=== PATIENT | female | born 1965 | race Caucasian/White ===

== ENCOUNTER 2019-12-23 13:56 | Outpatient (REF) | payer MEDICARE, MEDICAID, SELFPAY ==
[2019-12-23 15:10] LABS: MANUAL DIFF FLAG NO
[2019-12-23 15:15] LABS: Basophils Percent Auto 0.5 % (0-2); Eosinophils Absolute Auto 0.2 X10*3/uL (0.0-0.4); Eosinophils Percent Auto 2.4 % (0-4); Hematocrit 40.7 % (37-47); Hemoglobin 12.9 g/dl (12.0-16.0); Imm Gran Abs Auto 0.03 X10*3/uL (0.00-0.03); Imm Gran Pct Auto 0.3 % (0.0-0.4); Lymphocytes Absolute Auto 2.6 X10*3/uL (1.2-4.9); Lymphocytes Percent Auto 29.8 % (20-40); Mean Corpuscular HGB Conc 31.7 g/dl (31.0-35.0); Mean Corpuscular Volume 91.5 fL (80-98); Mean Platelet Volume 12.2 fL (9.4-12.3); Monocytes Absolute Auto 0.5 X10*3/uL (0.1-1.2); Monocytes Percent Auto 5.7 % (2-11); Neutrophils Absolute Auto 5.4 X10*3/uL (2.0-8.3); Neutrophils Percent Auto 61.3 % (45-73); Platelet Count 258 X10*3/uL (160-400); Red Blood Count 4.45 X10*6/uL (4.20-5.50); Red Cell Distribution Width 14.6 % (11.0-16.0); White Blood Count 8.8 X10*3/uL (4.8-10.8)
[2019-12-23 15:59] LABS: Alanine Aminotransferase 21 U/L (0-31); Albumin Level 4.6 g/dL (3.5-5.0); Alkaline Phosphatase 130 U/L (39-117); Anion Gap 13 (12-20); Aspartate Amino Transferase 14 U/L (5-31); Bilirubin Total 0.6 mg/dL (0.0-1.0); Blood Urea Nitrogen 27 mg/dL (9-16); Carbon Dioxide 25 mmol/L (22-29); Chloride 102 mmol/L (96-108); Cholesterol 165 mg/dL; Estimated Glomerular Filt Rate 45; Glucose Fasting 128 mg/dL (60-99); HDL Cholesterol 33 mg/dL; LDL Cholesterol Calculated 103 mg/dl; Potassium 4.8 mmol/l (3.3-5.1); Sodium 135 mmol/L (135-145); Total Protein 7.5 g/dL (6.5-8.0); Triglycerides 149 mg/dL
[2019-12-23 16:07] LABS: Estimated Average Glucose 146 mg/dL; Hemoglobin A1c % 6.7 %
[2019-12-23 16:18] LABS: TSH reflex Free T4 2.17 mIU/mL (0.32-4.0)
== END 2019-12-23 13:57 | disposition home or self-care (01) ==
LOC: HO.LAB 13:56
PROVIDERS: PCP Internal Medicine; Visit Provider Internal Medicine
DX: E11.9 Type 2 diabetes mellitus without complications (principal); E78.5 Hyperlipidemia, unspecified; I10 Essential (primary) hypertension; J44.9 Chronic obstructive pulmonary disease, unspecified; G43.909 Migraine, unspecified, not intractable, without status migrainosus; J30.9 Allergic rhinitis, unspecified; E66.9 Obesity, unspecified
CPT/HCPCS: 36415; 80053; 80061; 83036; 84443; 85025

== ENCOUNTER 2019-12-31 14:15 | Outpatient (REF) | payer MEDICARE, MEDICAID, SELFPAY ==
[2019-12-31 14:32] LABS: Glucose Urine UA NEG (NEG); Leukocyte Esterase Urine 3+ (NEG); Nitrite Urine NEG (NEG); PH 6.5 (5.0-8.0); Specific Gravity - Urine 1.015 (1.005-1.025); Urine Blood NEG (NEG); Urine Ketones NEG (NEG); Urine Protein NEG (NEG-TRACE)
[2019-12-31 14:33] LABS: Appearance Urine HAZY; Color Urine STRAW
[2019-12-31 14:48] LABS: Bacteria Urine 2+ /LPF; RBC Urine 0-2 /HPF (0); Squamous Epithelial Cell Urine 2+ /LPF; WBC Urine 50-75 /HPF (0-4)
[2019-12-31 15:09] LABS: Creatinine Urine 45.56 mg/dL; Microalbum/Creatinine Ratio Ur 10.9 ug/mg cr
== END 2019-12-31 14:16 | disposition home or self-care (01) ==
LOC: HO.LNP 14:15
PROVIDERS: Visit Provider Internal Medicine
DX: E11.9 Type 2 diabetes mellitus without complications (principal); I10 Essential (primary) hypertension; E78.5 Hyperlipidemia, unspecified; J44.9 Chronic obstructive pulmonary disease, unspecified; G43.909 Migraine, unspecified, not intractable, without status migrainosus; J30.9 Allergic rhinitis, unspecified; E66.9 Obesity, unspecified
CPT/HCPCS: 81001; 82043

== ENCOUNTER 2020-01-08 12:20 | Emergency (ER) | payer MEDICARE, MEDICAID, SELFPAY ==
[2020-01-08 12:50] VITALS: BP 145/72; PULSE 77; RESP 16; TEMP 37.3; O2SAT 98; BMI 30.4
--- NOTE | 2020-01-08 13:21 | XR_ITS ---
EXAMINATION: XR CHEST CLINICAL INFORMATION: Cough COMPARISON: 03/23/2018 TECHNIQUE: 2 views of the chest were obtained. FINDINGS: No significant abnormality is noted involving the heart, lungs, mediastinum, bony thorax or soft tissues. Again noted is a mild biconvex thoracolumbar scoliosis. XR/XR chest 2V IMPRESSION: No acute intrathoracic disease.
--- NOTE | 2020-01-08 13:38 | ED_ITS ---
HPI - URI/Sore Throat General Chief Complaint: Upper Respiratory Symptoms Stated Complaint: bronchitis Time Seen by Provider: 01/08/20 13:16 Source: patient Mode of arrival: ambulatory Limitations: no limitations History of Present Illness HPI Narrative: 54-year-old female with past medical history of chronic bronchitis here with increasing cough for the last 3 days unrelieved with an inhaler at home. No fevers, chills or body aches. No shortness of breath or chest pain. MD elicited complaint: cough Onset (ago): day(s) Consistency: constant Severity: moderate Able to tolerate fluids by mouth: Yes Exacerbating factors: nothing Relieving factors: nothing Associated symptoms: denies other symptoms Treatments prior to arrival: none Related Data Previous Rx's Medication Instructions Recorded azithromycin 250 mg PO DAILY 5 Days #5 tab 01/08/20 benzonatate [Tessalon Perles] 100 mg PO TID PRN #20 cap 01/08/20 prednisone 40 mg PO DAILY #10 tab 01/08/20 Allergies Allergy/AdvReac Type Severity Reaction Status Date / Time codeine [CODEINE] Allergy Intermediate VOMITING Verified 01/08/20 12:49 Codeine Phosphate Allergy Unknown vomiting Verified 01/08/20 12:49 Review of Systems Constitutional: Constitutional: Reports no additional constitutional complaints, Denies chills, Denies fatigue, Denies fever(s), Denies headache(s) and Denies weakness Eyes: Eyes: Reports no additional eye complaints and Denies change in vision ENT: Reports system reviewed and no additional complaints, except as documented, Denies otalgia, Denies headache(s) and Denies sore throat Cardiovascular: Cardiovascular: Reports no additional cardiovascular complaints, Denies chest pain, Denies leg edema and Denies dyspnea Respiratory: Respiratory: Reports no additional respiratory complaints, Repo rts cough and Denies dyspnea Gastrointestinal: Gastrointestinal: Reports no additional gastrointestinal complaints, Denies abdominal pain, Denies diarrhea, Denies nausea and Denies vomiting Musculoskeletal: Musculoskeletal: Reports no additional musculoskeletal complaints, Denies back pain, Denies arthralgias, Denies joint swelling, Denies numbness and Denies tingling Integumentary/Breasts: Skin/Breast: Reports system reviewed and no additional complaints, except as docu and Denies rash Neurologic: Reports system reviewed and no additional complaints, except as documented, Denies Abnormal speech present, Denies headache(s), Denies numbness, Denies tingling and Denies weakness Endocrine: Endocrine: Denies fatigue [facility] Past Medical History Attestation statement: The following information was validated with the patient. Source: obtained from family and nursing notes reviewed Medical History Chronic bronchitis No known health problems Poor historian Social History Social History Advance Directives: No Advance Directives Information Provided: No Physical Exam Vital Signs: Vital Signs: Vital Signs Temp Pulse Resp BP Pulse Ox 01/08/20 12:50 99.2 F 77 16 145/72 H 98 Body Mass Index 30.4 Const: General: cooperative, healthy appearing, comfortable and no acute distress Orientation/consciousness: patient oriented x3 Limitations: no limitations HENMT: Head: Yes normal to inspection Ears: hearing grossly normal bilaterally General nose exam: Normal external nose present Face and sinus: Yes normal facial exam Mouth: Normal oral and palatal mucosa present Throat: Yes posterior oropharynx normal Eyes: General: appearance normal, both eyes and all related structures Pupils: Equal, round and reactive pupils present Neck: Neck: Yes normal visual inspection Chest: Chest palpation & inspection: normal inspection of the chest Resp: Effort & Inspection: normal respiratory effort Auscultation: clear to auscultation bilaterally Cardio: Rate: regular rate Rhythm: regular rhythm Peripheral pulses: Peripheral pulses 2+ throughout GI: Inspection: Yes normal to inspection Palpation (GI): Soft to palpation and nontender Auscultation: normal bowel sounds Back/Spine/Pelvis: Thoracic/Lumbar Spine: thoracic and lumbar spine normal to inspection Skin: General skin exam: no rashes or lesions noted Neuro: General: patient oriented x3, no focal motor deficits and normal sensation to monofilament Cranial nerves: Yes Equal, round and reactive pupils present Cognition (Neuro): normal cognition Speech: No Abnormal speech present Gait exam (Neuro): Normal gait present Motor exam (neuro): 5/5 motor strength present throughout Extrem: General: Yes normal to inspection Course Course Course Narrative: Nonproductive but congested cough for the last 3 days unrelieved with inhaler at home. No other symptoms. Will check chest x-ray, FLORENTINO swab. 1445-CXR unremarkable. H/o chronic bronchitis. Will give z pack, prednisone course. Reviewed worrisome signs and symptoms when to return to the emergency department. Comfortable discharge home. MDM - URI/Sore Throat Imaging Data Chest x-ray: Attestation: I personally reviewed and interpreted this imaging study as follows: Radiologist's impression: EXAMINATION: XR CHEST CLINICAL INFORMATION: Cough COMPARISON: 03/23/2018 TECHNIQUE: 2 views of the chest were obtained. FINDINGS: No significant abnormality is noted involving the heart, lungs, mediastinum, bony thorax or soft tissues. Again noted is a mild biconvex thoracolumbar scoliosis. XR/XR chest 2V IMPRESSION: No acute intrathoracic disease. Discharge Plan Discharge Clinical Impression: Bronchitis Patient Disposition: Home, Self-Care Instructions: Acute Bronchitis (ED) Additional Instructions: We have tested you today for COVID 19. Test results take 1-2 days and we will call you with the results negative or positive. Take tylenol or motrin if able as needed for pain or fever. Stay well hydrated with fluids like water, gatorade and/or powerade. Wash hands at home. If living with others try to self isolate if possible. If unable wear a mask around others in your home and wash hands frequently. If COVID test is positive you will need to self isolate for a total of 14 days from when your symptoms started. You may return to work sooner if testing is negative and all symptoms resolved >72 hours. You should return to the emergency department for severe shortness of breath, chest pain or fever which does not respond to both tylenol and motrin at home. Prescriptions: New azithromycin 250 mg tablet 250 mg PO DAILY 5 Days Qty: 5 RF: 0 prednisone 20 mg tablet 40 mg PO DAILY Qty: 10 RF: 0 benzonatate [Tessalon Perles] 100 mg capsule 100 mg PO TID PRN (Reason: cough) Qty: 20 RF: 0 Referrals: Rogerio Waddell MD [Primary Care Provider] - 2 days
== END 2020-01-08 14:45 | disposition home or self-care (01) ==
PROVIDERS: Nurse Practitioner Family; Emergency Provider Emergency Medicine; PCP Internal Medicine
DX: J40 Bronchitis, not specified as acute or chronic (principal); Z79.899 Other long term (current) drug therapy; Z20.828 Contact with and (suspected) exposure to other viral communicable diseases
CPT/HCPCS: 71046; 87635; 99283

== ENCOUNTER 2020-01-27 13:21 | Outpatient (REF) | payer MEDICARE, MEDICAID, SELFPAY ==
--- NOTE | 2020-01-27 13:27 | US_ITS ---
EXAMINATION: US PELVIS CLINICAL INFORMATION: Right ovarian cyst COMPARISON: 09/02/2019 TECHNIQUE: Ultrasound of the pelvis is performed using transabdominal transducer. FINDINGS: Uterus: The uterus is anteverted and measures 8.7 x 3.4 x 2.6 cm. Diminutive endometrium is not measurable on this transabdominal exam. The uterus is smooth in contour and has normal myometrial echogenicity. No visible fibroid. Adnexa: The ovaries are not visualized. No adnexal mass. No free fluid. US/US pelvic complete IMPRESSION: Grossly unremarkable appearance of the uterus on this transabdominal exam. The ovaries are not visualized. There is no adnexal mass identified.
== END 2020-01-27 13:22 | disposition home or self-care (01) ==
LOC: HO.US 13:21
PROVIDERS: PCP Internal Medicine; Visit Provider Obstetrics & Gynecology
DX: N83.201 Unspecified ovarian cyst, right side (principal)
CPT/HCPCS: 76856

== ENCOUNTER 2020-02-07 10:58 | Outpatient (REF) | payer MEDICARE, MEDICAID, SELFPAY ==
--- NOTE | 2020-02-07 11:03 | MM_ITS ---
EXAMINATION: MM SCREENING DIGITAL BREAST TOMOSYNTHESIS, BILATERAL CLINICAL INFORMATION: Screening. Asymptomatic. The lifetime risk of breast cancer based on the Tyrer-Cuzick Model is 9%. COMPARISON: Mammography: 06/10/2018, 06/04/2017, 05/06/2016 TECHNIQUE: Digital breast tomosynthesis is performed in both the craniocaudal and mediolateral oblique views along with computer-aided detection (CAD). Synthesized 2D images are generated from the tomosynthesis. Additional views are provided: Exaggerated right CC, left CC, left MLO. FINDINGS: There are scattered areas of fibroglandular density (ACR BI-RADS breast composition Category b). There are no significant masses, abnormal calcifications, or other abnormalities. Parenchymal pattern is similar to prior studies. There is no developing density. The axilla and skin contours are unremarkable. MM/MM tomosynthesis screening BI IMPRESSION: No mammographic evidence of malignancy. ASSESSMENT: BI-RADS 1: Negative RECOMMENDATION: Routine annual mammography screening. This patient's information was entered into a reminder system with a target due date for their next mammogram.
== END 2020-02-07 10:59 | disposition home or self-care (01) ==
LOC: HO.MAMMO 10:58
PROVIDERS: PCP Internal Medicine; Visit Provider Internal Medicine
DX: Z12.31 Encounter for screening mammogram for malignant neoplasm of breast (principal)
CPT/HCPCS: 77063; 77067

== ENCOUNTER 2020-05-08 13:45 | Outpatient (REF) | payer MEDICARE, MEDICAID, SELFPAY ==
[2020-05-11 06:17] LABS: HPV mRNA E6/E7 rflx Not Detected (Not Detected)
== END 2020-05-08 13:46 | disposition home or self-care (01) ==
LOC: HO.LAB 13:45
PROVIDERS: PCP Internal Medicine; Visit Provider Obstetrics & Gynecology
DX: Z01.419 Encounter for gynecological examination (general) (routine) without abnormal findings (principal); I10 Essential (primary) hypertension; E11.9 Type 2 diabetes mellitus without complications; J44.9 Chronic obstructive pulmonary disease, unspecified; E66.9 Obesity, unspecified; E78.00 Pure hypercholesterolemia, unspecified; G47.33 Obstructive sleep apnea (adult) (pediatric); F41.8 Other specified anxiety disorders; F10.10 Alcohol abuse, uncomplicated; Z11.51 Encounter for screening for human papillomavirus (HPV); Z88.5 Allergy status to narcotic agent
CPT/HCPCS: 36415; 87624; 88142

== ENCOUNTER → 2020-05-26 10:26 | Outpatient (BNVA) | payer MEDICARE, MEDICAID, SELFPAY | PROVIDERS: PCP Internal Medicine; Visit Provider Nurse Practitioner Gerontology | DX: E11.65 Type 2 diabetes mellitus with hyperglycemia (principal); E66.9 Obesity, unspecified; Z68.29 Body mass index [BMI] 29.0-29.9, adult; E78.5 Hyperlipidemia, unspecified; Z79.84 Long term (current) use of oral hypoglycemic drugs | CPT/HCPCS: 82947; 99212 ==

== ENCOUNTER → 2020-09-19 09:55 | Outpatient (BNVA) | payer MEDICARE, MEDICAID, SELFPAY | PROVIDERS: PCP Internal Medicine; Visit Provider Nurse Practitioner Gerontology | DX: E11.65 Type 2 diabetes mellitus with hyperglycemia (principal); E78.5 Hyperlipidemia, unspecified; E66.9 Obesity, unspecified | CPT/HCPCS: 82947; Q3014 ==

== ENCOUNTER 2020-11-21 15:11 | Outpatient (REF) | payer MEDICARE, MEDICAID, SELFPAY ==
[2020-11-21 15:31] LABS: MANUAL DIFF FLAG NO
[2020-11-21 15:35] LABS: Basophils Percent Auto 0.3 % (0-2); Eosinophils Absolute Auto 0.2 X10*3/uL (0.0-0.4); Eosinophils Percent Auto 1.7 % (0-4); Hematocrit 39.6 % (37-47); Hemoglobin 12.5 g/dl (12.0-16.0); Imm Gran Abs Auto 0.09 X10*3/uL (0.00-0.03); Imm Gran Pct Auto 0.8 % (0.0-0.4); Lymphocytes Absolute Auto 3.1 X10*3/uL (1.2-4.9); Mean Corpuscular HGB Conc 31.6 g/dl (31.0-35.0); Mean Corpuscular Hemoglobin 28.6 pg (27.0-33.0); Mean Corpuscular Volume 90.6 fL (80-98); Mean Platelet Volume 10.7 fL (9.4-12.3); Monocytes Absolute Auto 0.8 X10*3/uL (0.1-1.2); Monocytes Percent Auto 6.6 % (2-11); Neutrophils Absolute Auto 7.3 X10*3/uL (2.0-8.3); Neutrophils Percent Auto 63.6 % (45-73); Platelet Count 280 X10*3/uL (160-400); Red Blood Count 4.37 X10*6/uL (4.20-5.50); Red Cell Distribution Width 15.2 % (11.0-16.0); White Blood Count 11.5 X10*3/uL (4.8-10.8)
[2020-11-21 15:58] LABS: Alanine Aminotransferase 27 U/L (0-31); Albumin Level 4.2 g/dL (3.5-5.0); Alkaline Phosphatase 105 U/L (39-117); Anion Gap 11 (12-20); Aspartate Amino Transferase 16 U/L (5-31); Bilirubin Total 0.6 mg/dL (0.0-1.0); Blood Urea Nitrogen 16 mg/dL (9-16); Calcium 8.9 mg/dL (8.4-10.2); Carbon Dioxide 26 mmol/L (22-29); Chloride 104 mmol/L (96-108); Cholesterol 130 mg/dL; Estimated Glomerular Filt Rate 55; Glucose Fasting 158 mg/dL (60-99); HDL Cholesterol 37 mg/dL; LDL Cholesterol Calculated 68 mg/dl; Sodium 136 mmol/L (135-145); Total Protein 6.8 g/dL (6.5-8.0); Triglycerides 127 mg/dL
[2020-11-21 16:11] LABS: TSH reflex Free T4 2.23 uIU/mL (0.32-4.0)
== END 2020-11-21 15:12 | disposition home or self-care (01) ==
LOC: HO.LAB 15:11
PROVIDERS: PCP Internal Medicine; Visit Provider Internal Medicine
DX: E11.9 Type 2 diabetes mellitus without complications (principal); E78.00 Pure hypercholesterolemia, unspecified; J30.9 Allergic rhinitis, unspecified; I10 Essential (primary) hypertension; J44.9 Chronic obstructive pulmonary disease, unspecified; E66.9 Obesity, unspecified
CPT/HCPCS: 36415; 80053; 80061; 84443; 85025

== ENCOUNTER → 2020-12-26 12:16 | Outpatient (BNVA) | payer MEDICARE, MEDICAID, SELFPAY | PROVIDERS: PCP Internal Medicine; Visit Provider Nurse Practitioner Gerontology | DX: E11.9 Type 2 diabetes mellitus without complications (principal); E78.5 Hyperlipidemia, unspecified; E66.9 Obesity, unspecified | CPT/HCPCS: 82947; 83036; 99212 ==

== ENCOUNTER → 2021-01-02 12:47 | Outpatient (BNVA) | payer MEDICARE, MEDICAID, SELFPAY | PROVIDERS: PCP Internal Medicine | DX: N39.46 Mixed incontinence (principal) | CPT/HCPCS: 51798; 99212 ==

== ENCOUNTER → 2021-01-19 11:39 | Outpatient (BNVA) | payer MEDICARE, MEDICAID, SELFPAY | PROVIDERS: Visit Provider Orthopaedic Surgery | DX: M75.102 Unspecified rotator cuff tear or rupture of left shoulder, not specified as traumatic (principal); E11.9 Type 2 diabetes mellitus without complications | CPT/HCPCS: 20610; 99212; J1100 ==

== ENCOUNTER → 2021-05-09 13:45 | Outpatient (BNVA) | payer MEDICARE, MEDICAID, SELFPAY | PROVIDERS: Visit Provider Obstetrics & Gynecology | DX: Z01.419 Encounter for gynecological examination (general) (routine) without abnormal findings (principal); N95.9 Unspecified menopausal and perimenopausal disorder; N64.4 Mastodynia; I10 Essential (primary) hypertension; E11.9 Type 2 diabetes mellitus without complications; E78.00 Pure hypercholesterolemia, unspecified; E78.5 Hyperlipidemia, unspecified; Z88.6 Allergy status to analgesic agent | CPT/HCPCS: 99212 ==

== ENCOUNTER 2021-06-19 13:24 | Outpatient (REF) | payer MEDICARE, MEDICAID, SELFPAY ==
--- NOTE | ~2021-06-19 | MM_ITS ---
EXAMINATION: MM DIAGNOSTIC DIGITAL BREAST TOMOSYNTHESIS, BILATERAL US DIAGNOSTIC ULTRASOUND BREAST, LEFT CLINICAL INFORMATION: Pain upper left breast for one week. No erythema, discharge, or palpable mass. Due for yearly. The lifetime risk of breast cancer based on the Tyrer-Cuzick Model is 9%. COMPARISON: Mammography: 02/07/2020, 06/10/2018, 06/04/2017 TECHNIQUE: Digital breast tomosynthesis is performed in both the craniocaudal and mediolateral oblique views along with computer-aided detection (CAD). Synthesized 2D images are generated from the tomosynthesis. Ultrasound left breast is targeted to the areas of clinical concern upper breast. Patient is able to point to the area of concern at time of imaging. Grayscale imaging and color Doppler are performed without and with harmonics. FINDINGS: There are scattered areas of fibroglandular density (ACR BI-RADS breast composition Category b). Parenchymal pattern is similar to prior studies. There is no developing density or interval mass or architectural abnormality. No skin thickening or coarsening of the Shan's ligaments. No abnormal calcifications. The axilla are unremarkable. Ultrasound demonstrates no cystic or solid mass or architectural abnormality. No focal duct ectasia. No skin thickening or edema tracking in soft tissue planes. Results are discussed with the patient at time of visit. MM/MM tomosynthesis diagnostic BI IMPRESSION: -No mammographic evidence of malignancy or inflammatory changes. -Unremarkable targeted left breast ultrasound.. ASSESSMENT: BI-RADS 1: Negative RECOMMENDATION: 1. Patient's breast/chest pain should be managed based on the clinical impression. 2. Otherwise, routine annual screening mammography. This patient's information was entered into a reminder system with a target due date for their next mammogram.
== END 2021-06-19 13:25 | disposition home or self-care (01) ==
LOC: HO.MAMMO 13:24
PROVIDERS: PCP Internal Medicine; Visit Provider Obstetrics & Gynecology
DX: N64.4 Mastodynia (principal)
CPT/HCPCS: 76642; 77062; 77066

== ENCOUNTER → 2021-06-25 11:55 | Outpatient (BNVA) | payer MEDICARE, MEDICAID, SELFPAY | PROVIDERS: PCP Internal Medicine; Visit Provider Nurse Practitioner Gerontology | DX: E11.9 Type 2 diabetes mellitus without complications (principal); E66.9 Obesity, unspecified; E78.5 Hyperlipidemia, unspecified | CPT/HCPCS: 82947; 83036; 99212 ==

== ENCOUNTER 2021-06-29 10:17 | Outpatient (REF) | payer MEDICARE, MEDICAID, SELFPAY ==
--- NOTE | ~2021-06-29 | XR_ITS ---
EXAMINATION: XR CHEST CLINICAL INFORMATION: Bronchitis COMPARISON: January 08, 2020 TECHNIQUE: 2 views of the chest were obtained. FINDINGS: No significant abnormality is noted involving the heart, lungs, mediastinum, bony thorax or soft tissues. XR/XR chest 2V IMPRESSION: No acute disease.
== END 2021-06-29 10:18 | disposition home or self-care (01) ==
LOC: HO.XRAY 10:17
PROVIDERS: PCP Internal Medicine; Visit Provider Internal Medicine
DX: J40 Bronchitis, not specified as acute or chronic (principal); R06.00 Dyspnea, unspecified
CPT/HCPCS: 71046

== ENCOUNTER → 2021-08-28 08:51 | Outpatient (BNVA) | payer MEDICARE, MEDICAID, SELFPAY | PROVIDERS: PCP Internal Medicine; Visit Provider Obstetrics & Gynecology | DX: R07.9 Chest pain, unspecified (principal) | CPT/HCPCS: 99212 ==

== ENCOUNTER 2021-09-21 09:57 | Outpatient (REF) | payer MEDICARE, MEDICAID, SELFPAY ==
[2021-09-21 10:10] LABS: MANUAL DIFF FLAG NO
[2021-09-21 11:18] LABS: Basophils Percent Auto 0.5 % (0-2); Eosinophils Absolute Auto 0.3 X10*3/uL (0.0-0.4); Eosinophils Percent Auto 3.4 % (0-4); Hematocrit 39.8 % (37.0-47.0); Hemoglobin 12.7 g/dl (12.0-16.0); Imm Gran Abs Auto 0.03 X10*3/uL (0.00-0.03); Imm Gran Pct Auto 0.4 % (0.0-0.4); Lymphocytes Absolute Auto 2.7 X10*3/uL (1.2-4.9); Mean Corpuscular HGB Conc 31.9 g/dl (31.0-35.0); Mean Corpuscular Hemoglobin 28.9 pg (27.0-33.0); Mean Corpuscular Volume 90.7 fL (80.0-98.0); Monocytes Absolute Auto 0.6 X10*3/uL (0.1-1.2); Monocytes Percent Auto 6.9 % (2-11); Neutrophils Absolute Auto 4.8 x10*3/uL (2.0-8.3); Neutrophils Percent Auto 56.8 % (45-73); Platelet Count 235 X10*3/uL (160-400); Red Blood Count 4.39 X10*6/uL (4.20-5.50); Red Cell Distribution Width 14.6 % (11.0-16.0); White Blood Count 8.4 X10*3/uL (4.8-10.8)
[2021-09-21 11:28] LABS: Estimated Average Glucose 140 mg/dL; Hemoglobin A1c % 6.5 %
[2021-09-21 11:54] LABS: Alanine Aminotransferase 24 U/L (0-31); Albumin Level 4.4 g/dL (3.5-5.0); Alkaline Phosphatase 112 U/L (39-117); Anion Gap 14 (12-20); Aspartate Amino Transferase 15 U/L (5-31); Bilirubin Total 0.3 mg/dL (0.0-1.0); Blood Urea Nitrogen 21 mg/dL (9-16); Carbon Dioxide 26 mmol/L (22-29); Chloride 103 mmol/L (96-108); Cholesterol 157 mg/dL; Estimated Glomerular Filt Rate 53; Glucose Fasting 150 mg/dL (60-99); HDL Cholesterol 44 mg/dL; LDL Cholesterol Calculated 71 mg/dl; Potassium 4.2 mmol/L (3.3-5.1); Sodium 139 mmol/L (135-145); Total Protein 7.3 g/dL (6.5-8.0); Triglycerides 211 mg/dL
[2021-09-21 12:06] LABS: TSH reflex Free T4 3.97 uIU/mL (0.32-4.0); Vitamin D 25-OH Total 44.7 ng/mL (>30)
== END 2021-09-21 09:58 | disposition home or self-care (01) ==
LOC: HO.LAB 09:57
PROVIDERS: PCP Internal Medicine; Visit Provider Internal Medicine
DX: E11.9 Type 2 diabetes mellitus without complications (principal); I10 Essential (primary) hypertension; E55.9 Vitamin D deficiency, unspecified; E78.00 Pure hypercholesterolemia, unspecified
CPT/HCPCS: 36415; 80053; 80061; 82306; 83036; 84443; 85025

== ENCOUNTER → 2022-01-17 13:27 | Outpatient (BNVA) | payer MEDICARE, MEDICAID, SELFPAY | PROVIDERS: PCP Internal Medicine; Visit Provider Urology | DX: N32.81 Overactive bladder (principal) | CPT/HCPCS: 51798; 99212 ==

== ENCOUNTER 2022-04-16 10:46 | Outpatient (RCR) | payer MEDICARE, MEDICAID, SELFPAY ==
--- NOTE | 2022-05-13 16:17 | MHC.PT.DC ---
[facility] [place] Office [place] Office [place] Office [address] Nataliia Marte [address] [phone] F: [phone] F: [phone] F: [phone] F: [phone] Physical Therapy Discharge Report Diagnosis: LOW BACK PAIN Date of Surgery: Date of Evaluation: 04/16/22 Date of Discharge: 05/13/22 Treatments to Date: 1 Cancellations to Date: 0 No Shows to Date: 2 Discharge Status: Visit Non-compliance Discharge Summary: ATTENDED EVAL ONLY, NO SHOWED FOR SCHEDULED VISITS AND DCed FOR NON-COMPLIANCE Electronically signed by: KYLIE JOLLY PT DPT Please sign and return to therapist. Thank you for your referral.
== END 2022-05-13 16:18 | disposition home or self-care (01) ==
LOC: HO.PT 10:46
PROVIDERS: PCP Internal Medicine; Visit Provider Internal Medicine
DX: M54.50 Low back pain, unspecified (principal)
CPT/HCPCS: 97110; 97162

== ENCOUNTER 2022-04-16 12:29 | Outpatient (REF) | payer MEDICARE, MEDICAID, SELFPAY ==
[2022-04-16 13:52] LABS: Anion Gap 17 (12-20); Blood Urea Nitrogen 21 mg/dL (9-16); Calcium 9.4 mg/dL (8.4-10.2); Carbon Dioxide 25 mmol/L (22-29); Chloride 103 mmol/L (96-108); Estimated Glomerular Filt Rate 55; Glucose Random 136 mg/dL (60-115); Potassium 4.5 mmol/L (3.3-5.1); Sodium 140 mmol/L (135-145)
[2022-04-16 13:55] LABS: Appearance Urine Turbid; Color Urine Yellow; Glucose Urine UA Negative (Negative); Leukocyte Esterase Urine Large (3+) (Negative); Nitrite Urine Negative (Negative); PH 5.5 (5.0-9.0); Specific Gravity - Urine 1.025 (1.005-1.025); UMIC TRIGGER UACC YES; Urine Blood Trace (Negative); Urine Ketones Trace mg/dL (Negative); Urine Protein Trace mg/dL (Neg-Trace)
[2022-04-16 14:04] LABS: Bacteria Urine 3+ (None Seen); Hyaline Casts Urine 0-2 /LPF (0-2); Squamous Epithelial Cell Urine >20 /HPF (0-2); UACC Culture Trigger YES; WBC Urine >50 /HPF (0-5)
[2022-04-16 14:30] LABS: Creatinine Urine 140.29 mg/dL
== END 2022-04-16 12:30 | disposition home or self-care (01) ==
LOC: HO.LAB 12:29
PROVIDERS: Nurse Practitioner Family; PCP Internal Medicine; Visit Provider Nurse Practitioner Family
DX: N17.9 Acute kidney failure, unspecified (principal); E11.9 Type 2 diabetes mellitus without complications; R82.90 Unspecified abnormal findings in urine
CPT/HCPCS: 36415; 80048; 81001; 82043; 87086

== ENCOUNTER 2022-07-03 12:23 | Outpatient (REF) | payer MEDICARE, MEDICAID, SELFPAY ==
--- NOTE | ~2022-07-03 | MM_ITS ---
EXAMINATION: MM SCREENING DIGITAL BREAST TOMOSYNTHESIS, BILATERAL CLINICAL INFORMATION: Screening. Asymptomatic. The lifetime risk of breast cancer based on the Tyrer-Cuzick Model is 7.3%. COMPARISON: Mammography: June 19, 2021 and studies dating back to April 19, 2015 TECHNIQUE: Digital breast tomosynthesis is performed in both the craniocaudal and mediolateral oblique views along with computer-aided detection (CAD). Synthesized 2D images are generated from the tomosynthesis. FINDINGS: There are scattered areas of fibroglandular density (ACR BI-RADS breast composition Category b). There are no new significant masses, abnormal calcifications, or other abnormalities. MM/MM tomosynthesis screening BI IMPRESSION: No significant changes from prior exam. ASSESSMENT: BI-RADS 1: Negative RECOMMENDATION: Routine annual mammography screening. This patient's information was entered into a reminder system with a target due date for their next mammogram.
== END 2022-07-03 12:24 | disposition home or self-care (01) ==
LOC: HO.MAMMO 12:23
PROVIDERS: Visit Provider Internal Medicine
DX: Z12.31 Encounter for screening mammogram for malignant neoplasm of breast (principal)
CPT/HCPCS: 77063; 77067

== ENCOUNTER → 2022-08-14 14:06 | Outpatient (BNVA) | payer MEDICARE, MEDICAID, SELFPAY | PROVIDERS: PCP Internal Medicine; Visit Provider Obstetrics & Gynecology ==

== ENCOUNTER 2022-09-25 15:00 | Outpatient (RCR) | payer MEDICARE, MEDICAID, SELFPAY ==
--- NOTE | 2022-09-03 13:53 | MHC.PT.EP ---
[facility] [place] Office [place] Office [place] Office [address] Nataliia Marte [address] [phone] F: [phone] F: [phone] F: [phone] F: [phone] Physical Therapy Plan of Care Date of Evaluation: Date of Surgery: N/A Diagnosis: low back pain, unspecified (RL) Assessment: pt is a pleasant yet confused/poor historian 56 y/o female presenting to physical therapy w/ referring diagnosis of low back pain. Her signs and symptoms seem consistent w/ muscle strain/spasm. She did not seem to understand purpose of PT despite education. Impairments include pain, decreased range of motion, decreased strength, impaired functional mobility, impaired postural awareness, and altered ambulation mechanics. pt is a fair-poo candidate for skilled PT due to age, potential remediation of impairments, typical disease/condition progression and prognosis, comorbidities, and motivation. pt would benefit from skilled PT intervention to provide a tailored strengthening and stretching exercise program, functional training, gait training, postural re-training, neuromuscular re-education, modalities as needed for pain, equipment safety demonstration. Frequency and Duration: The patient will be seen 1x/wk for 4 wks Short Term Goals: pt will be I w/ HEP to promote self-management of condition. pt will demo proper posture w/ lumbar roll to promote neutral spine w/ seated ADLs. Corsets Salesperson Goals: pt will demo proper lifting mechanics x5 reps from floor to chest to promote neutral spine w/ seated ADLs. Treatment Plan: Modalities to reduce pain, spasms and effusion. Manual therapy to restore motion and function. Therapeutic exercise to improve strength and flexibility. Neuromuscular re-education for posture and balance. Therapeutic activities to return to functional activities of daily living. Electronically signed by: Bertha Boyd PT, DPT Please sign and return to therapist. Thank you for your referral.
--- NOTE | 2022-10-14 10:25 | MHC.PT.DC ---
[facility] [place] Office [place] Office [place] Office [address] Nataliia Marte [address] [phone] F: [phone] F: [phone] F: [phone] F: [phone] Physical Therapy Discharge Report Diagnosis: low back pain, unspecified (RL) Date of Surgery: N/A Date of Evaluation: 09/03/22 Date of Discharge: 10/14/22 Treatments to Date: 3 Cancellations to Date: 1 No Shows to Date: 2 Discharge Status: Visit Non-compliance Discharge Summary: She has no showed two of her three appointments. She is being discharged for non-compliance. Per last treatment note on 09/25/22: pt arrived seemingly upset and she wanted to discuss all of the things happening in her family. Tried to refocus pt on exercises saying this time was for her to focus on herself but she was difficult to redirect. pt did mention she has a counselor she meets with every three weeks to talk about these matters with. She feels her back pain is permanent. Unsure what the carryover is but she did mention the other lady referring to the other therapist from her last visit. I do not feel she is an appropriate PT candidate and should seek other pain management strategies. Electronically signed by: Bertha Boyd PT, DPT Please sign and return to therapist. Thank you for your referral.
== END 2022-10-14 10:28 | disposition home or self-care (01) ==
LOC: HO.PT 15:00
PROVIDERS: PCP Internal Medicine; Visit Provider Internal Medicine
DX: M54.50 Low back pain, unspecified (principal)
CPT/HCPCS: 97110; 97162

== ENCOUNTER 2022-09-30 10:32 | Outpatient (AMB) | payer MEDICARE, MEDICAID, SELFPAY ==
--- NOTE | 2022-09-30 10:46 | MHC.OFFVIS ---
Intake Vital Signs 09/30/22 10:47 Height 4 ft 11 in Weight 144 lb BMI 29.1 Blood Pressure Location Lt brachial Position Sitting Intake Visit Reasons: Colonoscopy Screening Intake Note: Patient 1st pre colonoscopy screening. Patient cc: acid reflex, and between diarrhea and constipation. Machine Operator Transplanter Required: No Accompanied by: Self / Same As Patient Allergies codeine [CODEINE] Adverse Reaction (Intermediate, Verified 09/30/22 10:46) Vomiting Medication List - Last Reconciled 09/30/22 by Caren Villanueva PA-C amitriptyline 25 mg PO BEDTIME 90 days atorvastatin 80 mg PO DAILY blood sugar diagnostic As directed bupropion HCl 300 mg PO QAM 90 days Combivent Respimat 20-100 mcg/actuation (ipratropium-albuterol) 2 puffs inhalation QAM 30 days NS [DIABETIC SHOES As directed] dulaglutide (Trulicity) 0.75 mg (0.5 mL) subcut QWEEK ergocalciferol (vitamin D2) 1,250 mcg PO QWEEK escitalopram oxalate 20 mg PO DAILY 90 days FreeStyle Daiana 14 Day Sensor (flash glucose sensor) As directed NS loratadine (Allergy Relief (loratadine)) 10 mg PO DAILY metformin 500 mg PO BID montelukast 10 mg PO BEDTIME 90 days omeprazole 20 mg PO DAILY 90 days solifenacin 10 mg PO DAILY 30 days HPI HPI Comments History of Present Illness Details 56-year-old female history colonoscopy 2019- Dr. Herrera- inadequate prep Appetite is good- her bowels normal- daily -have never been and issue Acid reflux about 6 years- taking ppi- some break through- she say she has declined EGD- No cardiac or respiratory issues No N/V/D- or abdominal pain. [facility] Medical History Alcohol abuse Allergic rhinitis Anxiety Benign essential hypertension Blister (nonthermal), right foot, initial encounter Chronic bronchitis COPD (chronic obstructive pulmonary disease) Depression Diabetes mellitus DM2 (diabetes mellitus, type 2) HPV in female Hyperlipidemia LDL goal <100 Migraine Obesity (BMI 30-39.9) Obstructive sleep apnea Poor historian Pure hypercholesterolemia Urge and stress incontinence Surgical History History of removal of cyst Family History Father CVD (cardiovascular disease) Mother Emphysema lung Cervical cancer Diabetes Brother Diabetes Myocardial infarction Sister Diabetes Stroke Other Mental health disorder Social History Household Members: None Household Members Other:: [employer] Housing: Apartment Alcohol intake: current Alcohol intake frequency: holidays/special occasions only Patient Tobacco Use Status: Never used Tobacco e-Cigarette/Vaping Use: Never Used Second Hand Smoke Exposure: Yes service: No Current occupational status: disabled Gender identity: Female Cognitive needs: No Hearing needs: Yes Vision needs: Yes Female Reproductive History Menstrual Age of Menarche: 13 Review of Systems Const All systems reviewed & are unremarkable except as noted in HPI and below Card Denies chest pain and Denies dyspnea Resp Denies dyspnea GI Denies abdominal pain, Denies change in bowel habits, Denies nausea and Denies vomiting Psych Reports anxiety Physical Exam Vital Signs: BMI result Body Mass Index 29.1 Const General: comfortable and no acute distress Nutritional Appearance: well nourished Orientation/consciousness: patient oriented x3 Eyes Sclerae: sclerae normal Resp Effort & Inspection: normal respiratory effort Auscultation: clear to auscultation bilaterally and no wheezes Cardio Rate: regular rate Rhythm: regular rhythm Heart sounds: S1 normal heart sound present and S2 normal heart sound present GI Palpation (GI): Soft to palpation and nontender Auscultation: normal bowel sounds Skin General skin exam: no rashes or lesions noted Neuro General: patient oriented x3 Extrem General: Yes full ROM Psych Speech and movement: No Clear speech present Affect: Labile affect present Attitude: cooperative Assessment & Plan Assessment & Plan (1) History of colonoscopy: Comment: Has nurse home visit daily- will need help with prep-previous colonoscopy inadequate prep 2019 Code(s): Z98.890 - Other specified postprocedural states (2) Acid reflux: Comment: declines EGD- Code(s): K21.9 - Gastro-esophageal reflux disease without esophagitis Plan: Reflux precautions reviewed continue PPI (3) Screening for colon cancer: Comment: Pleasant, slow to detail Speech difficult to understand-repetition Code(s): Z12.11 - Encounter for screening for malignant neoplasm of colon Plan: Screening colonoscopy-PEG prep Reviewed medications Plan colonoscopy PEG Has home nurse- will need asst- Orders: Orders Colonoscopy - GI Use Only 09/30/22 Z12.11 - Encounter for screening for malignant neoplasm of colon Medications: New peg 3350-electrolytes 240-22.72-6.72 -5.84 gram until fecal effluent is clear 240 mL PO Q10M 4,000 mL 0RF Patient Instructions: 56-year-old female referred for screening colonoscopy Screening colonoscopy-PEG prep-home nurse will assist Reviewed medications- Reinforced clear liquids entire day prior to procedure Encouraged to call with any questions or concerns, home care nurse as well Appreciate the opportunity to assist in the care of the patient Coding Level of Care Code New Pt Level 4 (82869) Diagnoses History of colonoscopy Z98.890 Acid reflux K21.9 Screening for colon cancer Z12.11 Time Spent (min) 35
[2022-09-30 10:47] VITALS: BMI 29.1
== END 2022-09-30 12:58 | disposition home or self-care (01) ==
PROVIDERS: PCP Internal Medicine; Visit Provider Physician Assistant
DX: Z98.890 Other specified postprocedural states (principal); K21.9 Gastro-esophageal reflux disease without esophagitis; Z12.11 Encounter for screening for malignant neoplasm of colon
CPT/HCPCS: 99204

== ENCOUNTER → 2022-09-30 10:32 | Outpatient (BNVA) | payer MEDICARE, MEDICAID, SELFPAY | PROVIDERS: PCP Internal Medicine; Visit Provider Physician Assistant | DX: Z01.818 Encounter for other preprocedural examination (principal); K21.9 Gastro-esophageal reflux disease without esophagitis | CPT/HCPCS: 99202 ==

== ENCOUNTER 2022-10-17 14:39 | Outpatient (AMB) | payer MEDICARE, MEDICAID, SELFPAY ==
[2022-10-17 14:55] VITALS: BP 122/90; PULSE 109; O2SAT 96; BMI 29.7
--- NOTE | 2022-10-17 14:55 | A.OFFPC_ITS ---
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: No Allergies codeine [CODEINE] Adverse Reaction (Intermediate, Verified 10/17/22 15:24) Vomiting Medication List - Last Reconciled 10/17/22 by Cristina Maldonado, SUSIE amitriptyline 25 mg PO BEDTIME 90 days atorvastatin 80 mg PO DAILY blood sugar diagnostic As directed bupropion HCl 300 mg PO QAM 90 days Combivent Respimat 20-100 mcg/actuation (ipratropium-albuterol) 2 puffs inhalation QAM 30 days NS [DIABETIC SHOES As directed] dulaglutide (Trulicity) 0.75 mg (0.5 mL) subcut QWEEK ergocalciferol (vitamin D2) 1,250 mcg PO QWEEK escitalopram oxalate 20 mg PO DAILY 90 days FreeStyle Daiana 14 Day Sensor (flash glucose sensor) As directed NS loratadine (Allergy Relief (loratadine)) 10 mg PO DAILY metformin 500 mg PO BID montelukast 10 mg PO BEDTIME 90 days omeprazole 20 mg PO DAILY 90 days peg 3350-electrolytes 240-22.72-6.72 -5.84 gram 240 mL PO Q10M solifenacin 10 mg PO DAILY 30 days Tobacco use date assessed: 10/17/22 Dental Screening Dental Screen Date: 10/17/22 Did you have a dental visit in the last 12 months?: Yes Did you have a dental problem in the last 6 months where you did not have access to dental care?: No HPI [facility] 09/28/22 due to respiratory infection HPI Details Patient is a 56-year-old female who presents today to follow-up after [facility] Emergency Department visit 09/28/2022 due to cough. Patient of Dr. Waddell. Medical history significant for diabetes, hypercholesterolemia, hypertension, COPD, migraine, anxiety, depression among others. Patient did have clear lung sounds, chest x-ray is clear, EKG with no acute changes, CBC and electrolytes not revealing. Patient was diagnosed with anxiety and cough and discharged home to use ibuprofen or Tylenol as needed for cough. Today, patient reports ongoing cough with no improvement, she reports that cough is wet, she is not coughing up anything, reports intermittent shortness of breath, no chest pain. Patient is accompanied by [facility] worker. She denies fever or chills. Patient using her inhaler as prescribed. [facility], [facility] Medical History Alcohol abuse Allergic rhinitis Anxiety Benign essential hypertension Blister (nonthermal), right foot, initial encounter Chronic bronchitis COPD (chronic obstructive pulmonary disease) Depression Diabetes mellitus DM2 (diabetes mellitus, type 2) HPV in female Hyperlipidemia LDL goal <100 Migraine Obesity (BMI 30-39.9) Obstructive sleep apnea Poor historian Pure hypercholesterolemia Urge and stress incontinence Surgical History History of removal of cyst Family History Father CVD (cardiovascular disease) Mother Emphysema lung Cervical cancer Diabetes Brother Diabetes Myocardial infarction Sister Diabetes Stroke Other Mental health disorder Social History Household Members: None Household Members Other:: [employer] Housing: Apartment Alcohol intake: current Alcohol intake frequency: holidays/special occasions only Patient Tobacco Use Status: Never used Tobacco e-Cigarette/Vaping Use: Never Used Second Hand Smoke Exposure: Yes service: No Current occupational status: disabled Gender identity: Female Cognitive needs: No Hearing needs: Yes Vision needs: Yes Female Reproductive History Menstrual Age of Menarche: 13 Questionnaire Thrive Questionnaire Date Thrive assessed: 10/09/21 AUDIT C Alcohol Use Questionnaire (AUDIT-C) 1. How often do you have a drink containing alcohol?: Monthly or less 2. How many drinks containing alcohol do you have on a typical day when you are drinking?: 1 or 2 3. How often do you have six or more drinks on one occasion?: Never Total Score: 1 Score Reviewed/Action Taken: No DOLORES-7 AMB Questionnaire DOLORES-7 Date DOLORES - 7 assessed: 05/22/22 Source: Developed by Jordi Joet B.W. Rivera, Javier Chan and colleagues, with an educational keiko from [employer]. Review of Systems Const Denies body aches, Denies chills, Denies fever(s) and Denies headache(s) Eyes Denies change in vision ENT Denies dizziness, Denies otalgia, Denies headache(s), Denies nasal discharge, Denies sinus pain and Denies sore throat Card Denies chest pain, Denies edema, Denies lightheadedness and Reports dyspnea (Intermittent) Resp Reports cough, Reports dyspnea (Intermittent) and Denies wheezing GI Denies constipation, Denies diarrhea, Denies nausea and Denies vomiting Denies dysuria Musc Denies myalgias Skin/Breast Denies rash Neuro Denies dizziness and Denies headache(s) Aller/Immun Denies wheezing Physical exam (Primary Care) Vital Signs: Last Vital Signs Pulse 109 H 10/17/22 14:55 BP 122/90 H 10/17/22 14:55 Pulse Ox 96 10/17/22 14:55 Oxygen Delivery Method Room Air 10/17/22 14:55 BMI result Body Mass Index 29.7 Tobacco/Smoking Status: Tobacco use Status Tobacco use date assessed 10/17/22 10/17/22 14:56 Patient Tobacco Use Status Never used Tobacco 10/17/22 14:56 e-Cigarette/Vaping Use Never Used 10/17/22 14:56 Thrive Assessment: Date of Thrive Assessment Date Thrive assessed 10/09/21 10/17/22 14:56 Const General: cooperative and no acute distress Orientation/consciousness: patient oriented x3 HENMT Head: Yes normocephalic and Yes atraumatic Ears: TM's normal bilaterally Face and sinus: Yes sinuses nontender Mouth: oropharynx normal and moist mucous membranes Throat: Yes posterior oropharynx normal Eyes General: appearance normal, both eyes and all related structures Neck Neck: Yes normal visual inspection, Yes full ROM and Yes no lymphadenopathy Resp Effort & Inspection: normal respiratory effort, able to speak in complete sentences and Actively coughing Quality: wet Auscultation: clear to auscultation bilaterally, no crackles, no rales, no rhonchi and no wheezes Cardio Rate: regular rate Rhythm: regular rhythm Heart sounds: S1 normal heart sound present and S2 normal heart sound present GI Auscultation: normal bowel sounds Skin General skin exam: no rashes or lesions noted Neuro General: patient oriented x3 Gait exam (Neuro): Normal gait present Extrem General: Yes full ROM and No edema Assessment and Plan Assessment & Plan (1) COPD (chronic obstructive pulmonary disease): Code(s): J44.9 - Chronic obstructive pulmonary disease, unspecified Qualifiers: COPD type: unspecified COPD Qualified Code(s): J44.9 - Chronic obstructive pulmonary disease, unspecified Plan: Suspect COPD exacerbation, will treat with Z-Yonathan and prednisone, continue Combivent inhaler as prescribed. Follow-up if no improvement after finishing treatment. Keep appointment with PCP as scheduled or follow-up sooner as needed. Patient agreed with the plan. Medications: New azithromycin take 500 mg today (day 1), then 250 mg for 4 days (days 2-5) PO 6 tabs 0RF J44.9 - Chronic obstructive pulmonary disease, unspecified prednisone 40 mg (2 x 20 mg) PO DAILY 5 days 10 tabs 0RF J44.9 - Chronic obstructive pulmonary disease, unspecified Coding Level of Care Code Est Pt Level 3 (61782) Diagnoses COPD (chronic obstructive pulmonary disease) J44.9 COPD type: unspecified COPD
== END 2022-10-17 15:40 | disposition home or self-care (01) ==
PROVIDERS: PCP Internal Medicine; Visit Provider Nurse Practitioner Family
DX: J44.9 Chronic obstructive pulmonary disease, unspecified (principal)
CPT/HCPCS: 99213

== ENCOUNTER 2023-01-15 09:50 | Outpatient (AMB) | payer MEDICARE, MEDICAID, SELFPAY ==
[2023-01-15 10:10] VITALS: BP 104/64; PULSE 104; TEMP 36.6; O2SAT 96
--- NOTE | 2023-01-15 10:10 | MHC.OFFWIV ---
Intake Vital Signs 01/15/23 10:10 Height 4 ft 11 in BMI Reason not done Patient refused/unable BP 104/64 Blood Pressure Location Lt brachial Position Sitting Pulse 104 H Pulse Source Pulse Oximeter Temp 97.8 F Temp Source Temporal Artery Scan Pulse Oximetry (%) 96 Oxygen Delivery Method Room Air Intake Visit Reasons: EST/COPD/cough for weeks(lobby masked) Intake Note: pt is here for c/o COPD/cough for weeks Patient Tobacco Use Status: Never used Tobacco Allergies codeine [CODEINE] Adverse Reaction (Intermediate, Verified 01/15/23 10:10) Vomiting Do you need a note to return to daycare/school/sports/work: Yes HPI HPI Comments History of Present Illness Details 57-year-old female history of COPD that presents for cough. Patient has had a cough that is nonproductive for the last several weeks. Denies fevers or chills. Recently completed course of azithromycin.She reached out to her primary care who recommended she come to the urgent care. [facility] Medical History Alcohol abuse Allergic rhinitis Anxiety Benign essential hypertension Blister (nonthermal), right foot, initial encounter Chronic bronchitis COPD (chronic obstructive pulmonary disease) Depression Diabetes mellitus DM2 (diabetes mellitus, type 2) HPV in female Hyperlipidemia LDL goal <100 Migraine Obesity (BMI 30-39.9) Obstructive sleep apnea Poor historian Pure hypercholesterolemia Urge and stress incontinence Surgical History History of removal of cyst Family History Father CVD (cardiovascular disease) Mother Emphysema lung Cervical cancer Diabetes Brother Diabetes Myocardial infarction Sister Diabetes Stroke Other Mental health disorder Social History Household Members: None Household Members Other:: [employer] Housing: Apartment Alcohol intake: current Alcohol intake frequency: holidays/special occasions only Patient Tobacco Use Status: Never used Tobacco e-Cigarette/Vaping Use: Never Used Second Hand Smoke Exposure: Yes service: No Current occupational status: disabled Gender identity: Female Cognitive needs: No Hearing needs: Yes Vision needs: Yes Female Reproductive History Menstrual Age of Menarche: 13 Review of Systems Resp Reports chest congestion and Reports cough Physical Exam Vital Signs: Last Vital Signs Temp 97.8 F 01/15/23 10:10 Pulse 104 H 01/15/23 10:10 BP 104/64 01/15/23 10:10 Pulse Ox 96 01/15/23 10:10 Oxygen Delivery Method Room Air 01/15/23 10:10 Const General: cooperative, healthy appearing, no acute distress and alert Orientation/consciousness: patient oriented x3 Limitations: no limitations HEENT Head: Yes normal to inspection Ears: hearing grossly normal bilaterally General nose exam: Normal external nose present Resp Other: Faint wheeze in the upper lobes bilaterally Effort & Inspection: normal respiratory effort and able to speak in complete sentences Cardio Rate: regular rate Skin General skin exam: no rashes or lesions noted Neuro General: patient oriented x3 Extrem General: Yes normal to inspection Assessment & Plan Assessment & Plan (1) COPD (chronic obstructive pulmonary disease): Code(s): J44.9 - Chronic obstructive pulmonary disease, unspecified Qualifiers: COPD type: unspecified COPD Qualified Code(s): J44.9 - Chronic obstructive pulmonary disease, unspecified Plan: vital signs notable for mild tachycardia exam notable for faint wheeze the upper lobes bilaterally. Xrays negative. Will prescribed additional dose of prednisone Discharge instructions, follow up and treatment are discussed with patient in my usual fashion. Alternatives in treatment are also discussed. The patient will return for worsening symptoms or as needed. Advised that any labs/imaging ordered will be followed up on and contact made if further treatment needed. Counseled that patient's condition may require further evaluation and/or treatment. Symptoms of concern for worsening disorder discussed in detail in my customary manner. Patient does verbalize understanding of the plan, there are no apparent barriers to communication. The patient is given the opportunity to ask questions and have them answered to his/her satisfaction Orders: Orders XR chest 2V Today R05 - Cough Medications: New prednisone 50 mg PO DAILY 5 days 5 tabs 0RF Coding Level of Care Code Est Pt Level 3 (72382) Diagnoses Chronic obstructive pulmonary disease, unspecified COPD type J44.9 COPD type: unspecified COPD
== END 2023-01-15 10:37 | disposition home or self-care (01) ==
PROVIDERS: PCP Internal Medicine; Visit Provider Physician Assistant
DX: J44.9 Chronic obstructive pulmonary disease, unspecified (principal)
CPT/HCPCS: 99213

== ENCOUNTER 2023-01-15 10:37 | Outpatient (REF) | payer MEDICARE, MEDICAID, SELFPAY ==
--- NOTE | ~2023-01-15 | XR_ITS ---
EXAMINATION: XR CHEST CLINICAL INFORMATION: Cough COMPARISON: Chest radiograph from 06/29/2021 TECHNIQUE: 2 views of the chest were obtained. FINDINGS: Stable elevation the right hemidiaphragm. No focal consolidation. No pneumothorax. Trachea is midline. Cardiomediastinal silhouette is not enlarged no large pleural effusion. Dextrocurvature of the midthoracic spine. Multilevel degenerative changes of the thoracolumbar spine. Soft tissues are unremarkable. XR/XR chest 2V IMPRESSION: No acute cardiopulmonary process.
== END 2023-01-15 10:38 | disposition home or self-care (01) ==
LOC: HO.HMGCX 10:37
PROVIDERS: PCP Internal Medicine; Visit Provider Physician Assistant
DX: R05.9 Cough, unspecified (principal)
CPT/HCPCS: 71046

== ENCOUNTER 2023-01-17 13:24 | Outpatient (AMB) | payer MEDICARE, MEDICAID, SELFPAY ==
--- NOTE | 2023-01-17 13:26 | A.OFFVIS_ITS ---
Intake Intake Visit Reasons: OAB- 1yr follow up Intake Note: Patient presents today for a 1 yr follow-up for OAB: Meds- Solifenanci Allergies to Antibiotic- No Known Allergies Blood Thinner- None Unable to void PVR 0 mL Flue Cleaner Required: No Accompanied by: Other Relationship Allergies codeine [CODEINE] Adverse Reaction (Intermediate, Verified 01/17/23 13:26) Vomiting HPI HPI Comments History of Present Illness Details Yasmin is a 57-year-old female who presents today to the office for a follow-up. 01/17/2023? Yasmin is here for one year follow-up. Last visit: 01/16/2022?The patient has a history of diabetes and she is hearing impaired. 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 She is on VESIcare 10 mg for overactive bladder symptoms. She states that her urgency is controlled on the medication. She denies irritative voiding symptoms. She is up 2-3 times at night to urinate. She does admit drinking caffeinated beverages and states she drinks a lot of water throughout the day. She is unable to give a urine sample today. Evaluation - bladder scan PVR 0 mL 01/17/2023: Plan: I recommended decreasing the caffeine intake to 10 ounces per 24 hours. Continue Vesicare 10 mg daily. Follow-up in one year. [facility] Medical History Alcohol abuse Allergic rhinitis Anxiety Benign essential hypertension Blister (nonthermal), right foot, initial encounter Chronic bronchitis COPD (chronic obstructive pulmonary disease) Depression Diabetes mellitus DM2 (diabetes mellitus, type 2) HPV in female Hyperlipidemia LDL goal <100 Migraine Obesity (BMI 30-39.9) Obstructive sleep apnea Poor historian Pure hypercholesterolemia Urge and stress incontinence Surgical History History of removal of cyst Family History Father CVD (cardiovascular disease) Mother Emphysema lung Cervical cancer Diabetes Brother Diabetes Myocardial infarction Sister Diabetes Stroke Other Mental health disorder Social History Household Members: None Household Members Other:: [employer] Housing: Apartment Alcohol intake: current Alcohol intake frequency: holidays/special occasions only Patient Tobacco Use Status: Never used Tobacco e-Cigarette/Vaping Use: Never Used Second Hand Smoke Exposure: Yes service: No Current occupational status: disabled Gender identity: Female Cognitive needs: No Hearing needs: Yes Vision needs: Yes Female Reproductive History Menstrual Age of Menarche: 13 Review of Systems Const All systems reviewed & are unremarkable except as noted in HPI and below Reports no additional complaints Eyes Denies change in vision ENT Denies vertigo, Denies nasal congestion and Denies neck pain Card Reports no additional complaints and Denies dyspnea Resp Denies dyspnea GI Reports no additional complaints Reports no additional complaints Musc Reports no additional complaints and Denies neck pain Skin/Breast Denies rash and Denies unusual bruising Neuro Denies vertigo Psych Reports no additional complaints Endo Reports no additional complaints Juancarlos/Lymph Reports no additional complaints Aller/Immun Reports no additional complaints Office Procedures Post Void Residual Post Residual Void Post Void Residual (PVR): 0 [id number]-Ecjw Void Residual by ultrasound Assessment & Plan Assessment & Plan (1) OAB (overactive bladder): Code(s): N32.81 - Overactive bladder Plan I recommended decreasing the caffeine intake to 10 ounces per 24 hours. Continue Vesicare 10 mg daily. Follow-up in one year. Orders: Orders AMB Post Void Residual by ultrasound 01/17/23 N39.8 - Other specified disorders of urinary system Medications: Refilled solifenacin 10 mg PO DAILY 30 days 90 tabs 3RF Patient Instructions: The patient had an opportunity to ask questions regarding treatment plan. All questions were answered. Imaging, Laboratory studies and physical exam results were discussed and reviewed in detail. No major barriers to understanding were identified. The patient expressed understanding and agreement with the above treatment plan. The patient is aware they should contact our office by phone for worsening of their current condition or the appearance of new symptoms. Compliance is encouraged with any medications and followup testing that is ordered. It is a privilege to be allowed the opportunity to participate in the urologic care of your patient. If you have any questions or concerns regarding treatment for the above conditions please do not hesitate to contact me. The office telephone contact is [phone]. This note is constructed in part using voice recognition software. While every effort has been made to ensure accuracy animal groomer errors may have been included. Yours sincerely, Lasha Chu MD Coding Level of Care Code Est Pt Level 3 (26097) Diagnoses OAB (overactive bladder) N32.81 CPT Codes Post Residual Void - PVR CPT Code: 34990-Mrre Void Residual by ultrasound ([id number])
== END 2023-01-17 14:03 | disposition home or self-care (01) ==
PROVIDERS: Visit Provider Urology
DX: N32.81 Overactive bladder (principal)
CPT/HCPCS: 99213

== ENCOUNTER → 2023-01-17 13:24 | Outpatient (BNVA) | payer MEDICARE, MEDICAID, SELFPAY | PROVIDERS: Visit Provider Urology | DX: N32.81 Overactive bladder (principal) | CPT/HCPCS: 51798; 99212 ==

== ENCOUNTER 2023-01-29 13:24 | Outpatient (AMB) | payer MEDICARE, MEDICAID, SELFPAY ==
[2023-01-29 13:55] VITALS: BP 110/80; PULSE 99; O2SAT 99
--- NOTE | 2023-01-29 13:55 | MHC.PC.OV ---
Vital Signs 01/29/23 13:55 Height 4 ft 11 in Weight 148 lb 8 oz BMI 30.0 BP 110/80 Blood Pressure Location Lt brachial Position Sitting Pulse 99 Pulse Source Pulse Oximeter Pulse Oximetry (%) 99 Oxygen Delivery Method Room Air Intake Visit Reasons: DM Gis Web Developer Required: No Accompanied by: Self / Same As Patient Allergies codeine [CODEINE] Adverse Reaction (Intermediate, Verified 01/29/23 14:29) Vomiting Medication List - Last Reconciled 01/29/23 by Rogerio Waddell MD amitriptyline 25 mg PO BEDTIME 90 days atorvastatin 80 mg PO DAILY blood sugar diagnostic As directed blood sugar diagnostic (FreeStyle Lite Strips) As directed once per day bupropion HCl 300 mg PO QAM 90 days Combivent Respimat 20-100 mcg/actuation (ipratropium-albuterol) 2 puffs inhalation QAM 30 days NS [DIABETIC SHOES As directed] dulaglutide (Trulicity) 0.75 mg (0.5 mL) subcut QWEEK ergocalciferol (vitamin D2) 1,250 mcg PO QWEEK escitalopram oxalate 20 mg PO DAILY 90 days FreeStyle Daiana 14 Day Sensor (flash glucose sensor) As directed NS lancets (Comfort EZ Lancets) As directed once per day loratadine (Allergy Relief (loratadine)) 10 mg PO DAILY metformin 500 mg PO BID montelukast 10 mg PO BEDTIME 90 days omeprazole 20 mg PO DAILY 90 days solifenacin 10 mg PO DAILY 30 days Tobacco use date assessed: 01/29/23 Dental Screening Dental Screen Date: 01/29/23 Did you have a dental visit in the last 12 months?: Yes Did you have a dental problem in the last 6 months where you did not have access to dental care?: No Was dental information given to patient?: Patient has dentist HPI DM HPI Details Patient comes in today for her follow up visit - was last seen by me in June 2021 although she has been here a few times since and was seen by some of our nurse practitioners States that she went to the walk-in clinic a couple of weeks ago for increasing cough and congestion and was only prescribed some oral Prednisone and sent for chest x-rays - would like to know how her x-rays came out States that she still has a recurrent cough often and does not think that her current inhalers are helping her enough Would also like to get a referral to see a digital marketing specialist for her COPD Adds that she's had a sore just under her left nostril for the past week or so and it does not appear to be healing up quickly - would like to get something to help clear this up JULEE She denies any fever or sore throat; denies any headaches or dizziness Denies any chest pains; relates (+) frequent SOB on exertion lately No nausea/vomiting, no abdominal pain No change in bowel habits noted Has not had any follow up labs done in a while now States that she also needs several of her Rx refilled and would also like to get Rx for diabetic shoes [facility] Medical History (Updated 02/17/23 @ 18:52 by Rogerio Waddell MD) GERD without esophagitis Blister (nonthermal), right foot, initial encounter HPV in female Urge and stress incontinence DM2 (diabetes mellitus, type 2) Hyperlipidemia LDL goal <100 Obesity (BMI 30-39.9) Depression Anxiety Alcohol abuse Obstructive sleep apnea Allergic rhinitis Migraine COPD (chronic obstructive pulmonary disease) Benign essential hypertension Pure hypercholesterolemia Diabetes mellitus Poor historian Chronic bronchitis Surgical History History of removal of cyst Family History Father CVD (cardiovascular disease) Mother Emphysema lung Cervical cancer Diabetes Brother Diabetes Myocardial infarction Sister Diabetes Stroke Other Mental health disorder Social History Household Members: None Household Members Other:: Bliips Housing: Apartment Alcohol intake: current Alcohol intake frequency: holidays/special occasions only Patient Tobacco Use Status: Never used Tobacco e-Cigarette/Vaping Use: Never Used Second Hand Smoke Exposure: Yes service: No Current occupational status: disabled Gender identity: Female Cognitive needs: No Hearing needs: Yes Vision needs: Yes Female Reproductive History Menstrual Age of Menarche: 13 Questionnaire PHQ-9 Over the last 2 weeks, how often have you been bothered by any of the following problems? 1. Little interest or pleasure in doing things: not at all 2. Feeling down, depressed, or hopeless: several days 3. Trouble falling or staying asleep, or sleeping too much: several days 4. Feeling tired or having little energy: nearly every day 5. Poor appetite or overeating: not at all 6. Feeling bad about yourself - or that you are a failure or have let yourself or your family down: not at all 7. Trouble concentrating on things, such as reading the newspaper or watching television: not at all 8. Moving or speaking so slowly that other people could have noticed. Or the opposite - being so fidgety or restless that you have been moving around a lot more than usual: not at all 9. Thoughts that you would be better off or of hurting yourself in some way: not at all Total score: 5 Depression Screening Interpretation: Positive Depression Screening Follow-up: Existing condition and In treatment Depression Screening Done: Yes 66340 - PHQ-9 Billing: Yes Source: Developed by Drs. Wade Cardenas, Tomasa Stafford, Javier Chan and colleagues, with an educational keiko from [employer]. Thrive Questionnaire Date Thrive assessed: 01/29/23 I am a: Patient What is your living situation today?: I have a steady place to live Within the past 12 months, did the food you bought not last and you didn't have the money to get more?: Never true Within the past 12 months, did you worry whether your food would run out before you got money to buy more?: Never true Do you have trouble paying for medicines?: No Do you have trouble getting transportation to medical appointments?: No Do you have trouble paying your heating and electricity bill?: No Do you have trouble taking care of your child, family member or friend?: No Do you have trouble with day-to-day activities such as bathing, preparing meals, shopping, managing finances, etc.?: No Are you currently unemployed and looking for a job?: No Are you interested in more education?: No Please select the resources that you would like help with: None Currently or been in a relationship where the following occur: no concerns reported AUDIT C Alcohol Use Questionnaire (AUDIT-C) 1. How often do you have a drink containing alcohol?: Monthly or less 2. How many drinks containing alcohol do you have on a typical day when you are drinking?: 1 or 2 3. How often do you have six or more drinks on one occasion?: Never Total Score: 1 Score Reviewed/Action Taken: Yes DOLORES-7 AMB Questionnaire DOLORES-7 Date DOLORES - 7 assessed: 01/29/23 Feeling nervous, anxious, or on edge: 0 = Not at all Not being able to stop or control worryin = Not at all Worrying too much about different things: 0 = Not at all Trouble relaxin = Not at all Being so restless that it is hard to sit still: 0 = Not at all Becoming easily annoyed or irritable: 0 = Not at all Feeling afraid as if something awful might happen: 0 = Not at all Total DOLORES-7 score (0-4 normal; 5-9 mild; 10-14 moderate; 15-21 severe): 0 Source: Developed by Drs. Wade Cardenas, Tomasa Stafford, Javier Chan and colleagues, with an educational keiko from [employer]. Review of Systems Const Denies chills, Reports fatigue, Denies fever(s) and Denies headache(s) ENT Denies dysphagia, Denies dizziness, Denies otalgia, Denies headache(s), Reports nasal congestion (on and off), Denies neck pain, Denies odynophagia and Denies sore throat Card Denies chest pain, Denies palpitations and Reports dyspnea on exertion Resp Reports chest congestion (on and off - chest feels tight at times), Reports cough (recurrent; coughing up a lot of phlegm overnight), Reports dyspnea on exertion and Denies wheezing GI Denies abdominal pain, Denies constipation, Denies dysphagia, Denies heartburn, Denies diarrhea, Denies nausea, Denies odynophagia and Denies vomiting Denies difficulty voiding, Reports nocturia, Denies dysuria, Reports urinary incontinence (at times) and Reports urinary urgency (on and off) Musc Denies neck pain Skin/Breast Details: (+) sore under the left nostril Denies rash Neuro Denies dizziness and Denies headache(s) Endo Reports fatigue and Denies palpitations Aller/Immun Denies wheezing Physical exam (Primary Care) Vital Signs: Last Vital Signs Pulse 99 01/29/23 13:55 BP 110/80 01/29/23 13:55 Pulse Ox 99 01/29/23 13:55 Oxygen Delivery Method Room Air 01/29/23 13:55 BMI result Body Mass Index 30.0 Tobacco/Smoking Status: Tobacco use Status Tobacco use date assessed 01/29/23 01/29/23 14:01 Patient Tobacco Use Status Never used Tobacco 01/29/23 14:01 e-Cigarette/Vaping Use Never Used 01/29/23 14:01 PHQ-9: PHQ-9 Score PHQ-9: Total score 5 01/29/23 14:39 Depression Screening Interpretation: Positive Depression Screening Follow-up: Existing condition and In treatment Thrive Assessment: Date of Thrive Assessment Date Thrive assessed 01/29/23 01/29/23 14:01 Currently or been in a relationship where the following occur: no concerns reported Const General: no acute distress and alert HENMT Ears: TM's normal bilaterally and EAC's normal Throat: Yes posterior oropharynx normal and Yes tonsils normal (no TP congestion noted) Neck Neck: Yes no lymphadenopathy and Yes supple Resp Auscultation: no rales, rhonchi (scattered bilaterally), no wheezes and diminished lung sounds (slightly) Cardio Rate: regular rate Rhythm: regular rhythm Heart sounds: no murmurs GI Palpation (GI): Soft to palpation and nontender Auscultation: normal bowel sounds General: Yes no CVA tenderness Back/Spine/Pelvis Back: no CVA tenderness Skin Other: (+) small scaling lesion just outside the left nares Rashes: no rashes Extrem General: Yes no clubbing, cyanosis or edema Assessment and Plan Assessment & Plan (1) COPD (chronic obstructive pulmonary disease): Code(s): J44.9 - Chronic obstructive pulmonary disease, unspecified Qualifiers: COPD type: unspecified COPD Qualified Code(s): J44.9 - Chronic obstructive pulmonary disease, unspecified Plan: She was doing well on Combivent Respimat 1 puff 4 times a day in the past but appears to be experiencing some frequent exacerbations of her COPD lately Is reassured that her chest x-rays done a couple of weeks ago came out normal Will try switching her over from Combivent Respimat to Trelegy Ellipta 200-62.5-25 mcg 1 inhalation QD Will also refer her to pulmonary for further evaluation and management, per request (2) Pure hypercholesterolemia: Code(s): E78.00 - Pure hypercholesterolemia, unspecified Plan: As she has not had any follow up labs done in a while now, will have her go and get her labs done JULEE Reinforced low cholesterol diet Continue Atorvastatin 80 mg QD (3) Benign essential hypertension: Code(s): I10 - Essential (primary) hypertension Plan: Reinforced low sodium diet - goal is systolic BP of at least 130 mm or less Patient used to be on Lisinopril 5 mg QD but she appears to have stopped taking this at some point - not clear at this time when or why but her BP appears to be controlled without the Rx Have advised patient to continue monitoring her blood pressure regularly for now (4) Diabetes mellitus: Code(s): E11.9 - Type 2 diabetes mellitus without complications Qualifiers: Diabetes mellitus type: type 2 Diabetes mellitus director long term care insulin use: without fci use Diabetes mellitus complication status: without complication Qualified Code(s): E11.9 - Type 2 diabetes mellitus without complications Plan: She has not had any follow up labs or HgbA1c done in a while - HgbA1c was at 6.5% when last checked in September 2021 Will have her go and get her labs updated JULEE - labs ordered and she is instructed to try to get these done as soon as she can Reinforced diabetic diet Continue Metformin 500 mg BID and Trulicity 0.75 mg SQ once a week for now Patient was following up with Dulce Maria Oneill at [facility] [place] [facility] for her diabetes but it does not look like she has been seen by them since her last visit with Dulce Maria Oneill in June 2021 Will refer her back to [facility] [place] [facility] for follow up and management of her diabetes Per request, Rx for diabetic shoes made out and printed out for patient (5) Allergic rhinitis: Code(s): J30.9 - Allergic rhinitis, unspecified Qualifiers: Allergic rhinitis trigger: unspecified Allergic rhinitis seasonality: unspecified Qualified Code(s): J30.9 - Allergic rhinitis, unspecified Plan: Continue Montelukast 10 mg once a day (6) GERD without esophagitis: Code(s): K21.9 - Gastro-esophageal reflux disease without esophagitis Plan: Dietary restrictions reinforced Continue Omeprazole 20 mg QD - Rx refilled (7) Obstructive sleep apnea: Code(s): G47.33 - Obstructive sleep apnea (adult) (pediatric) Plan: Patient has severe MARLYN based on her repeat sleep study with CPAP titration done in March 2016 but has been unable to tolerate a CPAP mask? and is therefore unable to use a corrective CPAP device Advised that she should consider seeing Sleep Medicine so they can help her look into this further - patient states that she would like to think about this for now and try to get her COPD under control first (8) Impetigo: Code(s): L01.00 - Impetigo, unspecified Plan: Will start on Mupirocin 2% ointment to apply to the sore around her nostril TID (9) OAB (overactive bladder): Code(s): N32.81 - Overactive bladder Plan: Continue Solifenacin 10 mg QD Follow up with urology as scheduled (10) Anxiety: Code(s): F41.9 - Anxiety disorder, unspecified Plan: States that current medications are helping -? follow-up with Psychiatry as scheduled (11) Depression: Code(s): F32.9 - Major depressive disorder, single episode, unspecified Qualifiers: Depression Type: major depressive disorder Major depression recurrence: recurrent Active/Remission status: currently active Major depression episode severity: moderate Qualified Code(s): F33.1 - Major depressive disorder, recurrent, moderate Plan: Continue Escitalopram 20 mg QD, Bupropion 300 mg Q AM and Amitriptyline 25 mg Q HS Follow-up with Psychiatry as scheduled (12) Obesity (BMI 30-39.9): Code(s): E66.9 - Obesity, unspecified Plan: Reinforced diet/exercise as tolerated/lose weight Plan Follow up in 3 months Orders: Orders TSH reflex Free T4 01/29/23 E78.00 - Pure hypercholesterolemia, unspecified Hemoglobin A1c 01/29/23 E11.9 - Type 2 diabetes mellitus without complications Microalbumin, Random (w Creat) 01/29/23 E11.9 - Type 2 diabetes mellitus without complications Comprehensive Erin. Panel Fast 01/29/23 E78.00 - Pure hypercholesterolemia, unspecified Complete Blood Count Auto Diff 01/29/23 I10 - Essential (primary) hypertension Lipid Panel 01/29/23 E78.00 - Pure hypercholesterolemia, unspecified UA CC w/rflx Micro + Cult 01/29/23 R30.0 - Dysuria Vitamin D 25-OH Total 01/29/23 E55.9 - Vitamin D deficiency, unspecified Vitamin B12 and Folate 01/29/23 E53.8 - Deficiency of other specified B group vitamins Referrals Pulmonary Medicine Referral J44.9 - Chronic obstructive pulmonary disease, unspecified Endocrinology Referral E11.9 - Type 2 diabetes mellitus without complications Medications: New mupirocin 2% 1 appl topical TID 22 grams 1RF nasal sore Trelegy Ellipta 200-62.5-25 mcg ([id number]) 1 inh inhalation DAILY 60 ea 3RF 30 days NS J44.9 - Chronic obstructive pulmonary disease, unspecified Refilled amitriptyline 25 mg PO BEDTIME 90 tabs 1RF 90 days dulaglutide (Trulicity) 0.75 mg (0.5 mL) subcut QWEEK 2 mL 7RF escitalopram oxalate 20 mg PO DAILY 90 tabs 1RF 90 days metformin 500 mg PO BID 180 tabs 1RF atorvastatin 80 mg PO DAILY 90 tabs 1RF bupropion HCl 300 mg PO QAM 90 tabs 1RF 90 days omeprazole 20 mg PO DAILY 90 caps 1RF 90 days Discontinued Combivent Respimat 20-100 mcg/actuation Discontinued Reason: Doctor's Order 2 puffs inhalation QAM 30 days 4 grams 3RF NS Coding Level of Care Code Est Pt Level 4 (33310) Diagnoses Chronic obstructive pulmonary disease, unspecified COPD type J44.9 COPD type: unspecified COPD Pure hypercholesterolemia E78.00 Benign essential hypertension I10 Type 2 diabetes mellitus without complication, without long-term current use of insulin E11.9 Diabetes mellitus type: type 2 Diabetes mellitus fci insulin use: without fci use Diabetes mellitus complication status: without complication Allergic rhinitis, unspecified seasonality, unspecified trigger J30.9 Allergic rhinitis trigger: unspecified Allergic rhinitis seasonality: unspecified GERD without esophagitis K21.9 Obstructive sleep apnea G47.33 Impetigo L01.00 OAB (overactive bladder) N32.81 Anxiety F41.9 Moderate episode of recurrent major depressive disorder F33.1 Depression Type: major depressive disorder Major depression recurrence: recurrent Active/Remission status: currently active Major depression episode severity: moderate Obesity (BMI 30-39.9) E66.9
== END 2023-01-29 14:41 | disposition home or self-care (01) ==
PROVIDERS: PCP Internal Medicine; Visit Provider Internal Medicine
DX: J44.9 Chronic obstructive pulmonary disease, unspecified (principal); E11.9 Type 2 diabetes mellitus without complications; F33.1 Major depressive disorder, recurrent, moderate; E78.00 Pure hypercholesterolemia, unspecified; I10 Essential (primary) hypertension; J30.9 Allergic rhinitis, unspecified; K21.9 Gastro-esophageal reflux disease without esophagitis; G47.33 Obstructive sleep apnea (adult) (pediatric); L01.00 Impetigo, unspecified; N32.81 Overactive bladder; F41.9 Anxiety disorder, unspecified; E66.9 Obesity, unspecified
CPT/HCPCS: 99214

== ENCOUNTER 2023-02-25 09:36 | Outpatient (AMB) | payer MEDICARE, MEDICAID, SELFPAY ==
[2023-02-25 09:38] VITALS: BP 94/58; PULSE 125; O2SAT 96
--- NOTE | 2023-02-25 09:38 | MHC.OFFVIS ---
Intake Vital Signs 02/25/23 09:38 Weight 147 lb BP 94/58 L Blood Pressure Location Rt brachial Position Sitting Pulse 125 H Pulse Source Pulse Oximeter Pulse Oximetry (%) 96 Oxygen Delivery Method Room Air Intake Visit Reasons: COPD Allergies codeine [CODEINE] Adverse Reaction (Intermediate, Verified 02/25/23 09:43) Vomiting Medication List - Last Reconciled 02/25/23 by [place]ia Malone LPN amitriptyline 25 mg PO BEDTIME 90 days atorvastatin 80 mg PO DAILY blood sugar diagnostic As directed blood sugar diagnostic (FreeStyle Lite Strips) As directed once per day bupropion HCl 300 mg PO QAM 90 days [DIABETIC SHOES As directed] dulaglutide (Trulicity) 0.75 mg (0.5 mL) subcut QWEEK ergocalciferol (vitamin D2) 1,250 mcg PO QWEEK escitalopram oxalate 20 mg PO DAILY 90 days FreeStyle Daiana 14 Day Sensor (flash glucose sensor) As directed NS lancets (Comfort EZ Lancets) As directed once per day loratadine (Allergy Relief (loratadine)) 10 mg PO DAILY metformin 500 mg PO BID montelukast 10 mg PO BEDTIME 90 days mupirocin 2% 1 appl topical TID omeprazole 20 mg PO DAILY 90 days solifenacin 10 mg PO DAILY 30 days Trelegy Ellipta 200-62.5-25 mcg (nbdyugshdwb-vkzdqxfre-olxmrdrs) 1 inh inhalation DAILY 30 days NS HPI COPD HPI Details Yasmin is a pleasant 57 year old female, never smoker, with underlying COPD, chronic bronchitis, HTN, MARLYN, GERD and developmental delay. She is accompanied by her hospice case manager, as she is a poor historian. She was referred for pulmonary evaluation for persistent dry cough and dyspnea on exertion. She is currently on Trelegy with suboptimal effect. She notes coughing occurs variably but does occur with eating. She reports secondary exposure to tobacco, parents and siblings are smokers, sisters with COPD. She denies occupational exposures. She does report environmental allergies and has a cat. Denies any recent allergy testing. She notes daytime fatigue and paroxysmal nocturnal dyspnea. She reports sleep study was performed years ago, denies CPAP therapy. FOR[facility]LY [facility], [facility] Medical History (Updated 02/26/23 @ 12:23 by Yadira Erazo NP) GERD without esophagitis Blister (nonthermal), right foot, initial encounter HPV in female Urge and stress incontinence DM2 (diabetes mellitus, type 2) Hyperlipidemia LDL goal <100 Obesity (BMI 30-39.9) Depression Anxiety Alcohol abuse Obstructive sleep apnea Allergic rhinitis Migraine COPD (chronic obstructive pulmonary disease) Benign essential hypertension Pure hypercholesterolemia Diabetes mellitus Poor historian Chronic bronchitis Surgical History History of removal of cyst Family History Father CVD (cardiovascular disease) Mother Emphysema lung Cervical cancer Diabetes Brother Diabetes Myocardial infarction Sister Diabetes Stroke Other Mental health disorder Social History Household Members: None Household Members Other:: [employer] Housing: Apartment Alcohol intake: current Alcohol intake frequency: holidays/special occasions only Patient Tobacco Use Status: Never used Tobacco e-Cigarette/Vaping Use: Never Used Second Hand Smoke Exposure: Yes service: No Current occupational status: disabled Gender identity: Female Cognitive needs: No Hearing needs: Yes Vision needs: Yes Female Reproductive History Menstrual Age of Menarche: 13 Review of Systems Const Denies chills, Denies excessive sweating, Denies fever(s), Denies headache(s) and Denies night sweats Eyes Denies dry eyes, Denies irritation and Denies itchy eyes ENT Reports Normal hearing present, Denies headache(s), Denies nasal discharge, Denies post nasal drip and Denies sore throat Card Denies chest pain, Denies chest pain at rest, Denies chest pain with activity, Denies claudication, Denies leg edema and Denies orthopnea Resp Denies chest congestion, Denies excessive phlegm production, Denies pain on inspiration, Denies pain with cough, Denies stridor and Denies wheezing Musc Denies myalgias Neuro Reports Normal hearing present and Denies headache(s) Endo Denies excessive sweating Juancarlos/Lymph Denies lymphadenopathy Aller/Immun Denies itchy eyes, Denies seasonal rhinorrhea and Denies wheezing Physical Exam Vital Signs: Last Vital Signs Pulse 125 H 02/25/23 09:38 BP 94/58 L 02/25/23 09:38 Pulse Ox 96 02/25/23 09:38 Oxygen Delivery Method Room Air 02/25/23 09:38 Const General: cooperative, healthy appearing, comfortable, no acute distress, well developed and alert Nutritional Appearance: obese Orientation/consciousness: patient oriented x3 Limitations: no limitations HEENT Head: Yes normal to inspection, Yes normocephalic and Yes atraumatic Ears: hearing grossly normal bilaterally and external ears normal Eyes General: appearance normal, both eyes and all related structures Eyelids: Yes eyelids normal Sclerae: sclerae normal EOM: EOMs intact bilaterally Neck Neck: Yes normal visual inspection and Yes no lymphadenopathy Lymphatic: no lymphadenopathy noted Chest Chest palpation & inspection: normal inspection of the chest Resp Effort & Inspection: normal respiratory effort, able to speak in complete sentences, no audible wheezes, no cough, no stridor, not tachypneic, no tripod positioning and no use of accessory muscles Auscultation: clear to auscultation bilaterally Cardio Jugular venous distension: no JVD Rate: regular rate Rhythm: regular rhythm Skin Other: warm, dry General skin exam: no rashes or lesions noted Neuro General: patient oriented x3 Cranial nerves: Yes Normal hearing present Cognition (Neuro): normal cognition Gait exam (Neuro): Normal gait present Extrem General: Yes normal to inspection, Yes capillary refill normal, Yes no clubbing, cyanosis or edema and Yes no pedal edema Psych Appearance: grossly normal and well kempt Speech and movement: Normal speech and movement present and Clear speech present Affect: normal affect Attitude: cooperative Thought process: Normal thought process present Thought content: Normal thought content present Insight: Good insight present (Psych) Judgement: Good judgement present (Psych) Office Procedures 6 Minute Walk Time:: 10:00 SPO2 % at rest: 94 Pulse at rest: 100 SPO2 % during excercise: 93 Pulse during excercise: 120 SPO2 % after excercise: 97 Pulse after excercise: 112 Distance in yards walked: 160 Yazmin Score: 9 Performance Observations:: Yasmin walked on level ground without assistance. Yasmin maintained her SPO2 94-97% on room air for the entire walk. No supplemental O2 needed. [address]3509 - 6 Minute Walk Results Reviewed Results Reviewed: [facility] [place] [facility] [place] [address] [place] [address] XRay Report Signed Patient: Yasmin Gordon MR#: [id number] : 1965 Acct:[id number] Age/Sex: 57 / F ADM Date: 01/15/23 Loc: HO.[email or web address] Attending Dr: Rich SAMANIEGO Ordering Physician: Rich Woody Date of Service: 01/15/23 Procedure(s): XR chest 2V Accession Number(s): [id number] cc: Rogerio Waddell MD; Rich Woody~ EXAMINATION: XR CHEST CLINICAL INFORMATION: Cough COMPARISON: Chest radiograph from 06/29/2021 TECHNIQUE: 2 views of the chest were obtained. FINDINGS: Stable elevation the right hemidiaphragm. No focal consolidation. No pneumothorax. Trachea is midline. Cardiomediastinal silhouette is not enlarged no large pleural effusion. Dextrocurvature of the midthoracic spine. Multilevel degenerative changes of the thoracolumbar spine. Soft tissues are unremarkable. XR/XR chest 2V IMPRESSION: No acute cardiopulmonary process. Assessment & Plan Assessment & Plan (1) Cough: Code(s): R05 - Cough (2) Daytime somnolence: Code(s): R40.0 - Somnolence (3) Environmental allergies: Code(s): Z91.09 - Other allergy status, other than to drugs and biological substances (4) Dyspnea on exertion: Code(s): R06.09 - Other forms of dyspnea Plan Yasmin's symptoms are likely related to pulmonary, allergic and deconditioning etiologies. Due to developmental delay, unlikely that she would be able to perform PFT. She carries a diagnosis of COPD, however denies smoking history. She does report chronic bronchitis for the past several years. Advised to continue Trelegy at this time. CXR unremarkable, will send for chest CT given continued dyspnea and cough. Will send for RAST testing to evaluate for an allergic component triggering symptoms. Patient also notes cough and choking while eating. Will send for modified barium swallow evaluation to assess for microaspiration. Patient reported significant dyspnea with exertion, 6MWT performed and patient does not qualify for oxygen at this time. She reported symptoms of obstructive sleep apnea, will send for home sleep study to evaluate. All questions were answered and patient is in agreement of plan. Will follow up to review results. Orders: Orders Complete Blood Count Auto Diff 02/25/23 Z91.09 - Other allergy status, other than to drugs and biological substances CT chest wo IV con Today R05.9 - Cough, unspecified FL barium swallow modified Today R05 - Cough AMB 6 minute walk 02/25/23 J44.9 - Chronic obstructive pulmonary disease, unspecified Rast Allergen 02/25/23 Z91.09 - Other allergy status, other than to drugs and biological substances Immunoglobulin E 02/25/23 Z91.09 - Other allergy status, other than to drugs and biological substances RT home sleep study Today R40.0 - Somnolence Coding Level of Care Code New Pt Level 4 (15266) Diagnoses Cough R05 Daytime somnolence R40.0 Environmental allergies Z91.09 Dyspnea on exertion R06.09 CPT Codes Coding ([id number])
[2023-02-25 10:13] VITALS: PULSE 100; O2SAT 94
== END 2023-02-25 10:31 | disposition home or self-care (01) ==
PROVIDERS: PCP Internal Medicine; Referring Provider Internal Medicine; Visit Provider Nurse Practitioner Family
DX: R05.9 Cough, unspecified (principal)
CPT/HCPCS: 94618; 99204; 99214

== ENCOUNTER → 2023-02-25 09:36 | Outpatient (BNVA) | payer MEDICARE, MEDICAID, SELFPAY | PROVIDERS: PCP Internal Medicine; Referring Provider Internal Medicine; Visit Provider Nurse Practitioner Family | DX: R40.0 Somnolence (principal); R05.9 Cough, unspecified; R06.09 Other forms of dyspnea; Z91.09 Other allergy status, other than to drugs and biological substances | CPT/HCPCS: 94618; 99202 ==

== ENCOUNTER 2023-04-11 09:33 | Outpatient (REF) | payer MEDICARE, MEDICAID, SELFPAY ==
--- NOTE | ~2023-04-11 | FL_ITS ---
EXAMINATION: Modified Barium Swallows CLINICAL INFORMATION: Dysphagia COMPARISON: None TECHNIQUE: Modified barium swallow was performed under lateral fluoroscopy with patient in standing position. Different consistency of barium was administered by the speech therapist. FINDINGS: No evidence of laryngeal penetration or aspiration was seen during the examination. FLUOROSCOPY TIME: 52 seconds Number of Spot Images: 1 DOSE AREA PRODUCT: 284.7 uGy-m2 (microgray-meter squared) FL/FL barium swallow modified IMPRESSION: No evidence of laryngeal penetration or aspiration seen on this examination. Refer to the speech therapy report for further clarification This procedure was performed by Guzman Shields PA-C, and supervised by Dr. Shin
--- NOTE | 2023-04-17 13:26 | MHC.SL.IMP ---
Date of Plan of Treatment: 04/11/23 Onset of Symptoms/Illness: 02/28/23 Date Treatment Started: 04/11/23 Admitting Diagnosis: Cough (R.05) Primary Speech & Language Diagnosis: R13.19 Other Dysphagia Reason for Today's Visit: 15049 Modified Barium Swallow Study Pre-evaluation Dietary Consistencies: Regular Pre-evaluation Liquid Consistency: Thin Pre-evaluation Medication Administration: Whole with Liquid Oral Motor Exam Facial Symmetry: Normal for Patient Symmetrical Oral Expression Ability: Mild Impairment Is patient able to manage secretions?: Yes Is patient able to produce volitional cough?: Yes Food and Liquid Trials: Oral Impairment: Lip Closure: 2=Escape @ interlabial space/lat juncture; not beyond vermilion border Oral Impairment: Tongue Control During Bolus Hold: 0=Cohesive bolus between tongue to palatal seal Oral Impairment: Bolus Preparation/Mastication: 0=Timely and efficient chewing and mashing Oral Impairment: Bolus Transport/Lingual Motion: 0=Brisk tongue motion Oral Impairment: Oral Residue: 1=Trace residue lining oral structures Oral Impairment:Initiation of Pharyngeal Swallow: 2=Bolus head at posterior laryngeal surface of epiglottis Pharyngeal Impairment: Soft Palate Elevation: 0=No bolus between soft palate (SP)/pharyngeal wall (PW) Pharyngeal Impairment: Laryngeal Elevation: 0=Complete superior movement of thyroid cartilage (see description) Pharyngeal Impairment: Anterior Hyoid Excursion: 0=Complete anterior movement Pharyngeal Impairment: Epiglottic Movement: 0=Complete inversion Pharyngeal Impairment: Laryngeal Vestibular Closure:: 0=Complete: no air/contrast in laryngeal vestibule Pharyngeal Impairment: Pharyngeal Stripping Wave: 0=Present: complete Pharyngeal Impairment: Pharyngeal Contraction: Did not test Pharyngeal Impairment: Pharyngoesophageal Segment Openin=Partial distention/partial duration: partial obstruction of flow Pharyngeal Impairment: Tongue Base (TB) Retraction: 1=Trace column of contrast/air between TB and posterior PW Pharyngeal Impairment: Pharyngeal Residue: 1=Trace residue within or on pharyngeal structures Pharyngeal Impairment: Esophageal Clearance Upright Position: Did not test Impressions and Recommendations Clinical Observations: MBSImP Results: Lip closure for intraoral bolus containment resulted in bolus escape from the interlabial space or lateral juncture, but no extension beyond the vermilion border. Tongue control during bolus hold maintained a cohesive bolus held between tongue to palate seal. Bolus preparation and mastication resulted in timely and efficient chewing and mashing. Bolus transport/lingual motion was with brisk tongue motion. Oral residue was a trace, lining oral structures. Initiation of the pharyngeal swallow occurred as the bolus head was at the posterior laryngeal surface of the epiglottis. Soft palate elevation resulted in no bolus between the soft palate and the pharyngeal wall. Laryngeal elevation demonstrated complete superior movement of the thyroid cartilage with complete approximation of the arytenoids to the epiglottic petiole. Anterior hyoid excursion demonstrated complete anterior movement. Epiglottic movement resulted in complete inversion. Laryngeal vestibular closure was complete, as indicated by no air or contrast within the laryngeal vestibule at the height of the swallow. Pharyngeal stripping wave was present and complete. Pharyngeal contraction could not be determined due to logistical reasons not related to physiologic impairment. Pharyngoesophageal segment opening demonstrated partial distension/partial duration, with partial obstruction of bolus flow. Tongue base retraction allowed a trace column of contrast or air between the retracted tongue base and the posterior pharyngeal wall. Pharyngeal residue was a trace within or on pharyngeal structures. Esophageal clearance in the upright position could not be assessed due to logistical reasons not related to physiologic impairment. Oral Impairment Score: 4 Pharyngeal Impairment Score: 1 (absence of score, component 13) Esophageal Impairment Score: --- (absence of score, component 17) Laryngeal Penetration and Aspiration: Aspiration was observed in today's study. Cookie, Pudding-thick, Thin Contrast entered the airway, passed below the vocal folds, and no effort were made to eject. SUMMARY: Yasmin was given barium contrast in Thin Liquid, Puree and Regular Solid mediums in the standing position. Her performance was well within the normal range. There was an incident where she spill some contrast to her lower lip which effected her scoring, however this is deemed to be an accident only. Liquid Intake Recommendation: Thin Liquid Intake Strategies: No Straws Dietary Recommendations: Regular Medication Administration: Whole with Liquid Please contact the pharmacy regarding appropriate crushable or liquid drug formulations that are available whenever modified delivery is recommended. Compensatory Strategies Recommended: Sitting Upright (90 deg) Supervision during eating and or drinking: None Needed Recommended Treatments: Recommendation for Speech Therapy: NA:Typical Evaluation Text Comment: Frequency/Duration: Date Range for Service Requested: Timeline to reassess: 3 months Flash Ranging Crewmember Clinician/Clinical Fellow: No Supervisory Statement: N/A Speech Language Pathologist: Sunny Malloy M.A., CCC-APPLICATION SYSTEMS ADMINISTRATOR
== END 2023-04-11 09:34 | disposition home or self-care (01) ==
LOC: HO.XRAY 09:33
PROVIDERS: PCP Internal Medicine; Visit Provider Nurse Practitioner Family
DX: R05.9 Cough, unspecified (principal)
CPT/HCPCS: 74230; 92611

== ENCOUNTER → 2023-04-11 09:34 | Outpatient (BNV) | payer MEDICARE, MEDICAID, SELFPAY | PROVIDERS: PCP Internal Medicine; Visit Provider Radiology Diagnostic Radiology | DX: R13.10 Dysphagia, unspecified (principal) | CPT/HCPCS: 74230 ==

== ENCOUNTER 2023-04-17 12:42 | Outpatient (REF) | payer MEDICARE, MEDICAID, SELFPAY ==
[2023-04-17 13:16] LABS: MANUAL DIFF FLAG NO
[2023-04-17 13:28] LABS: Basophils Absolute Auto 0.1 X10*3/uL (0.0-0.2); Basophils Percent Auto 0.6 % (0-2); Eosinophils Absolute Auto 0.3 X10*3/uL (0.0-0.4); Eosinophils Percent Auto 3.7 % (0-4); Hematocrit 41.4 % (37.0-47.0); Hemoglobin 13.4 g/dl (12.0-16.0); Imm Gran Abs Auto 0.03 X10*3/uL (0.00-0.03); Imm Gran Pct Auto 0.4 % (0.0-0.4); Lymphocytes Absolute Auto 2.4 X10*3/uL (1.2-4.9); Lymphocytes Percent Auto 29.3 % (20-40); Mean Corpuscular HGB Conc 32.4 g/dl (31.0-35.0); Mean Corpuscular Hemoglobin 29.8 pg (27.0-33.0); Mean Platelet Volume 10.8 fL (9.4-12.3); Monocytes Absolute Auto 0.6 X10*3/uL (0.1-1.2); Monocytes Percent Auto 6.6 % (2-11); Neutrophils Percent Auto 59.4 % (45-73); Platelet Count 278 X10*3/uL (160-400); Red Cell Distribution Width 14.4 % (11.0-16.0); White Blood Count 8.3 X10*3/uL (4.8-10.8)
[2023-04-17 13:39] LABS: Estimated Average Glucose 148 mg/dL; Hemoglobin A1C 169.1747 umol/L; Hemoglobin A1c % 6.8 % (<6.0)
[2023-04-17 14:04] LABS: Alanine Aminotransferase 27 U/L (0-31); Albumin Level 4.2 g/dL (3.5-5.0); Alkaline Phosphatase 105 U/L (39-117); Anion Gap 14 (12-20); Aspartate Amino Transferase 15 U/L (5-31); Bilirubin Total 0.3 mg/dL (0.0-1.0); Blood Urea Nitrogen 19 mg/dL (9-16); Calcium 9.4 mg/dL (8.4-10.2); Carbon Dioxide 28 mmol/L (22-29); Chloride 104 mmol/L (96-108); Cholesterol 166 mg/dL (<200); Estimated Glomerular Filt Rate > 60; Glucose Fasting 157 mg/dL (60-99); HDL Cholesterol 47 mg/dL (>40); LDL Cholesterol Calculated 72 mg/dL (<100); Potassium 4.6 mmol/L (3.3-5.1); Sodium 141 mmol/L (135-145); Total Protein 7.3 g/dL (6.5-8.0); Triglycerides 239 mg/dL (<150)
[2023-04-17 14:19] LABS: TSH reflex Free T4 2.14 uIU/mL (0.32-4.0); Vitamin D 25-OH Total 41.5 ng/mL (>30)
[2023-04-17 14:33] LABS: Folate 10.6 ng/mL (> or = 4.0)
[2023-04-17 14:41] LABS: Vitamin B12 389 pg/mL (200-900)
[2023-04-17 17:02] LABS: Appearance Urine Turbid; Color Urine Yellow; Glucose Urine UA Negative (Negative); Leukocyte Esterase Urine Large (3+) (Negative); Nitrite Urine Negative (Negative); UMIC TRIGGER UACC YES; Urine Blood Negative (Negative); Urine Ketones Negative (Negative); Urine Protein Trace mg/dL (Neg-Trace)
[2023-04-17 17:23] LABS: Bacteria Urine 4+ (None Seen); Hyaline Casts Urine 0-2 /LPF (0-2); RBC Urine 0-2 /HPF (0-2); UACC Culture Trigger YES; WBC Urine >50 /HPF (0-5)
[2023-04-17 17:45] LABS: Creatinine Urine 112.02 mg/dL
[2023-04-19 03:13] LABS: Class Alternaria alternata 0; Class Aspergillus fumigatus 0; Class Bermuda Grass 0; Class Birch 0; Class Cat Dander 0; Class Cladosporium herbarum 0; Class Cockroach 0/1; Class Common Ragweed 0; Class Cottonwood 0; Class Derm. pterony 0/1; Class Dermatophagoides farinae 1; Class Dog Dander 0; Class Elm 0; Class Maple Box Elder 0; Class Mountain Cedar 0; Class Mouse Urine Protein 0; Class Mugwort 0/1; Class Oak 0; Class Penicillium crysogenum 0; Class Rough Pigweed 0; Class Sheep Sorrel 0; Class Sycamore 0; Class Timothy Grass 0; Class Walnut Tree 0; Class White Ash 0; Class White Mulberry 0; D001 IgE D pteronyssinus 0.33 kU/L; D002 - IgE D farinae 0.41 kU/L; E001 - IgE Cat Dander <0.10 kU/L; E005 - IgE Dog Dander <0.10 kU/L; E072-IgE Mouse Urine <0.10 kU/L; G002 IgE Bermuda Grass <0.10 kU/L; G006 - IgE Timothy Grass <0.10 kU/L; I006-IgE Cockroach, German 0.18 kU/L; Immunoglobulin E 61 kU/L (<OR=114); M001 IgE Penicillium chrysogen <0.10 kU/L; M002 - IgE Cladosporium herbar <0.10 kU/L; M003 - IgE Aspergillus fumigat <0.10 kU/L; M006 - IgE Alternaria alternat <0.10 kU/L; T001 IgE Maple/Box Elder <0.10 kU/L; T003 IgE Common Silver Birch <0.10 kU/L; T006 - IgE Cedar, Mountain <0.10 kU/L; T007 - IgE Oak, White <0.10 kU/L; T008 IgE Elm, American <0.10 kU/L; T010 - IgE Walnut <0.10 kU/L; T011 - IgE Maple Leaf Sycamore <0.10 kU/L; T014 - IgE Cottonwood <0.10 kU/L; T015 - IgE Ash, White <0.10 kU/L; T070 - IgE White Mulberry <0.10 kU/L; W001 - IgE Ragweed, Short <0.10 kU/L; W006 - IgE Mugwort 0.14 kU/L; W014 IgE Pigweed, Common <0.10 kU/L; W018 IgE Sheep Sorrel <0.10 kU/L
== END 2023-04-17 12:43 | disposition home or self-care (01) ==
LOC: HO.LAB 12:42
PROVIDERS: Absent Provider Nurse Practitioner Family; PCP Internal Medicine; Visit Provider Internal Medicine
DX: Z91.09 Other allergy status, other than to drugs and biological substances (principal); E11.9 Type 2 diabetes mellitus without complications; E53.8 Deficiency of other specified B group vitamins; E78.00 Pure hypercholesterolemia, unspecified; E55.9 Vitamin D deficiency, unspecified; R82.90 Unspecified abnormal findings in urine
CPT/HCPCS: 36415; 80053; 80061; 81001; 81003; 82043; 82306; 82570; 82607; 82746; 82785; 83036; 84443; 85025; 86003; 87086

== ENCOUNTER 2023-04-21 09:53 | Day surgery (SDC) | payer MEDICARE, MEDICAID, SELFPAY ==
[2023-04-17 13:03] VITALS: BMI 29.1
--- NOTE | 2023-04-18 10:26 | P.CONAN_ITS ---
Documented by User: Karen He NP 04/18/23 10:27 HPI - Anesthesia Eval Consult details Narrative: 57yo F for Colonoscopy PMFSH Active Problems Active Problems: All Active Problems (Updated 03/05/23 @ 13:00 by Yadira Erazo NP) Paroxysmal nocturnal dyspnea (Acute) Dyspnea on exertion (Acute) Daytime somnolence (Acute) Environmental allergies (Acute) Impetigo (Acute) GERD without esophagitis (Acute) Acid reflux (Acute) History of colonoscopy (Acute) Cervical cancer screening (Acute) Screening for breast cancer (Acute) Adult general medical exam (Acute) Screening for colon cancer (Acute) Low back pain (Acute) Blister (nonthermal), right foot, initial encounter (Acute) OAB (overactive bladder) (Acute) Hypotension (Acute) Acute renal failure (Acute) Chest pain (Acute) Bronchitis (Acute) Breast pain, left (Acute) Upper respiratory tract infection (Acute) Painful arc syndrome of left shoulder (Acute) Urge and stress incontinence (Acute) DM2 (diabetes mellitus, type 2) (Acute) Cough (Acute) Hyperlipidemia LDL goal <100 (Acute) Obesity (BMI 30-39.9) (Acute) Well woman exam (Acute) Depression (Acute) Anxiety (Acute) Alcohol abuse (Acute) Obstructive sleep apnea (Acute) Allergic rhinitis (Acute) Migraine (Acute) COPD (chronic obstructive pulmonary disease) (Acute) Benign essential hypertension (Acute) Pure hypercholesterolemia (Acute) Diabetes mellitus (Acute) Right ovarian cyst (Acute) Ovarian cyst (Acute) Past Medical History Medical History GERD without esophagitis Blister (nonthermal), right foot, initial encounter HPV in female Urge and stress incontinence DM2 (diabetes mellitus, type 2) Hyperlipidemia LDL goal <100 Obesity (BMI 30-39.9) Depression Anxiety Alcohol abuse Obstructive sleep apnea Allergic rhinitis Migraine COPD (chronic obstructive pulmonary disease) Benign essential hypertension Pure hypercholesterolemia Diabetes mellitus Poor historian Chronic bronchitis Family History Family History Father CVD (cardiovascular disease) Mother Emphysema lung Cervical cancer Diabetes Brother Diabetes Myocardial infarction Sister Diabetes Stroke Other Mental health disorder Surgical History Surgical History History of removal of cyst Social History Social History Household Members: None Household Members Other:: [employer] Housing: Apartment Alcohol intake: current Alcohol intake frequency: holidays/special occasions only Patient Tobacco Use Status: Never used Tobacco e-Cigarette/Vaping Use: Never Used Second Hand Smoke Exposure: Yes Use of substances other than those prescribed or required for medical reasons: No Are you DNR?: No Advance Directives: No Advance Directives Information Provided: Yes service: No Current occupational status: disabled Gender identity: Female Cognitive needs: No Hearing needs: Yes Vision needs: Yes Meds Allergies Allergy/AdvReac Type Severity Reaction Status Date / Time codeine [CODEINE] AdvReac Intermediate Vomiting Verified 02/25/23 09:43 Home Medications Medication Instructions Recorded Confirmed Last Taken Type blood sugar diagnostic #10 ea 01/18/20 01/29/23 Unknown History ergocalciferol (vitamin D2) 1,250 1,250 mcg PO QWEEK 01/18/20 02/25/23 Unknown History mcg (50,000 unit) capsule loratadine 10 mg tablet (Allergy 10 mg PO DAILY 08/14/22 02/25/23 Unknown History Relief (loratadine)) Exam Height,Weight and Vital Signs: Height 4 ft 11 in Weight 65.317 kg Pertinent Lab Results Pertinent Lab Results: Laboratory Tests 04/17/23 13:14 WBC 8.3 Hgb 13.4 Hct 41.4 Plt Count 278 Sodium 141 Potassium 4.6 Chloride 104 Carbon Dioxide 28 BUN 19 H Creatinine 0.91 Assessment and Plan Assessment Anesthesia Assessment: Chart Reviewed Documented by User: Bertha Harmon MD 04/21/23 11:39 PMFSH Past Medical History Medical History GERD without esophagitis Blister (nonthermal), right foot, initial encounter HPV in female Urge and stress incontinence DM2 (diabetes mellitus, type 2) Hyperlipidemia LDL goal <100 Obesity (BMI 30-39.9) Depression Anxiety Alcohol abuse Obstructive sleep apnea Allergic rhinitis Migraine COPD (chronic obstructive pulmonary disease) Benign essential hypertension Pure hypercholesterolemia Diabetes mellitus Poor historian Chronic bronchitis Family History Family History Father CVD (cardiovascular disease) Mother Emphysema lung Cervical cancer Diabetes Brother Diabetes Myocardial infarction Sister Diabetes Stroke Other Mental health disorder Family history of problems with anesthesia: No Surgical History Surgical History History of removal of cyst History of Problems with Anesthesia: No Social History Social History Household Members: None Household Members Other:: [employer] Housing: Apartment Alcohol intake: current Alcohol intake frequency: holidays/special occasions only Patient Tobacco Use Status: Never used Tobacco e-Cigarette/Vaping Use: Never Used Second Hand Smoke Exposure: Yes Use of substances other than those prescribed or required for medical reasons: No Are you DNR?: No Advance Directives: No Advance Directives Information Provided: Yes service: No Current occupational status: disabled Gender identity: Female Cognitive needs: No Hearing needs: Yes Vision needs: Yes Meds Allergies Allergy/AdvReac Type Severity Reaction Status Date / Time codeine [CODEINE] AdvReac Intermediate Vomiting Verified 02/25/23 09:43 Home Medications Medication Instructions Recorded Confirmed Last Taken Type blood sugar diagnostic #10 ea 01/18/20 01/29/23 Unknown History ergocalciferol (vitamin D2) 1,250 1,250 mcg PO QWEEK 01/18/20 02/25/23 Unknown History mcg (50,000 unit) capsule loratadine 10 mg tablet (Allergy 10 mg PO DAILY 08/14/22 02/25/23 Unknown History Relief (loratadine)) Exam Airway Mallampati Class: II TM Dist: >3cm Neck ROM: Full Heart: rrr Lungs: cta Assessment and Plan Final Anesthetic Review Family History of Problems with Anesthesia: No History of Problems with Anesthesia: No NPO: Yes ASA Class: III Final Preanesthetic Review: No Changes in Pt Med Stat, Meds/Allgs Chart Reviewed and Consent Obtained/Reviewed Patient Risk: Intermediate Procedure Risk: Intermediate Anesthetic Plan Anesthetic Plan: MAC: Disposition: Standard PACU
[2023-04-21 10:01] VITALS: BMI 29.5
[2023-04-21 10:23] VITALS: BP 141/95; PULSE 101; RESP 16; TEMP 36.5; O2SAT 95
[2023-04-21] MEDS: Lactated Ringers 1,000 ML 100 ML IVCONT (10:25)
[2023-04-21 10:55] LABS: Glucose, Whole Blood 95 mg/dL (60-115)
--- NOTE | 2023-04-21 10:56 | MHC.SHP ---
Pre-Procedural Eval Section A - 24 Hr Update-Section A only Date of Service: 04/21/23 Section B - Complete if H&P > 30 days Chief Complaint: Colon cancer screening Relevant Family History (Specify if Yes): Yes Relevant Social History: None Present Medications: see Short Stay Collaborative assessment Medical History: Significant History (Benign essential hypertension Blister (nonthermal), right foot, initial encounter Chronic bronchitis COPD (chronic obstructive pulmonary disease) Depression Diabetes mellitus DM2 (diabetes mellitus, type 2) HPV in female Hyperlipidemia LDL goal <100 Migraine Obesity (BMI 30-39.9) Obstructive sleep a) History of Previous Operations: Relevant previous surgery/procedure and date(s) (History of removal of cyst) Allergies: Allergies Allergy/AdvReac Type Severity Reaction Status Date / Time codeine [CODEINE] AdvReac Intermediate Vomiting Verified 02/25/23 09:43 Exam Surgical H&P Exam: Normal: Heart, Normal: Lungs and Normal: Abdomen Plan Diagnosis/Plan: Unchanged I have reviewed the history and physical and performed a pertinent physical examination on my patient. No changes have occurred unless specified. Time Spent With Patient Time: Total time managing care of this patient today ____ minutes.
--- NOTE | 2023-04-21 11:39 | W.PM.OPN ---
Operative Note Operative Note Date of Service: 04/21/23 Narrative: COLONOSCOPY TILL CECUM WITH SNARE POLYPECTOMY Pre-op diagnosis: Colon cancer screening Post-op diagnosis:? Colon polyps, diverticulosis Endoscopist:? Bradford Lutz MD Anesthesia:?MAC Consent: Indications for the procedure and potential complications of bleeding, perforation, reaction to medications and missed diagnosis were discussed with the patient and informed consent was obtained. Instrument: Olympus PCF H 190 L variable stiffness pediatric colonoscope Monitoring: Vital signs and clinical assessment, intermittent blood pressure monitoring, continuous EKG monitoring, Pulse oximetry and Carbon Dioxide monitoring were done throughout the procedure. Please see anesthesia flowsheet. Colon withdrawl time was 23 minutes. Procedure: The patient was placed in the left lateral decubitis position and pre-procedure medications were administered. After a digital rectal examination of the ano-rectum, the video colonoscope was inserted into the rectum and advanced through the colon to the cecum. The colonoscope was slowly withdrawn in a retrograde panoramic fashion and the colon mucosa was carefully examined including a retroflexed view of the rectum. Findings and interventions are described below. Procedure Difficulty: Colon was long and there was some loop formation. Findings: Terminal Ileum: Not evaluated Cecum: Normal Ascending Colon: Normal Transverse Colon: A 12 -15 mm sessile polyp in the distal TC - removed with a hot snare. Descending Colon: Normal Sigmoid Colon: Moderate diverticulosis Rectum: Normal Ano-rectum: Normal Colon preparation: Good after copious irrigation [place] Bowel Preparation Scale Right colon; 2 Transverse colon: 2 Left colon; 2 (0 = Unprepared colon segment with mucosa not seen due to solid stool that cannot be cleared. 1 = Portion of mucosa of the colon segment seen, but other areas of the colon segment not well seen due to staining, residual stool and/or opaque liquid. 2 = Minor amount of residual staining, small fragments of stool and/or opaque liquid, but mucosa of colon segment seen well. 3 = Entire mucosa of colon segment seen well with no residual staining, small fragments of stool or opaque liquid) Impression and Post Procedure Diagnosis: Colonoscopy Findings: One medium sized polyp removed Moderate diverticulosis seen in the sigmoid colon Plan: Await pathology results Patient has an appointment on 05/06/23 in the GI Clinic with DANETTE Riley. Repeat Colonoscopy interval based on path results - in 3 years if polyp is adenomatous and 10 years if polyps are hyperplastic. (adult colonoscope for future colonoscopies) Above findings were reviewed with the patient and colon polyps and diverticulosis handouts were given in the discharge area
[2023-04-21 12:36] VITALS: BP 130/74; PULSE 80; RESP 16; TEMP 36.6; O2SAT 94
[2023-04-21 12:51] VITALS: BP 129/78; PULSE 78; RESP 16; TEMP 36.6; O2SAT 95
[2023-04-21 13:04] VITALS: BP 129/85; PULSE 78; RESP 16; TEMP 36.6; O2SAT 96
== END 2023-04-21 13:20 | disposition home or self-care (01) ==
PROVIDERS: PCP Internal Medicine; Visit Provider Internal Medicine Gastroenterology
PROC: 0DJD8ZZ Inspection of Lower Intestinal Tract, Via Natural or Artificial Opening Endoscopic (ICD-10-PCS; CPT 45378; principal; 2023-04-21 11:50)
DX: Z12.11 Encounter for screening for malignant neoplasm of colon (principal); D12.3 Benign neoplasm of transverse colon; K57.30 Diverticulosis of large intestine without perforation or abscess without bleeding; K21.9 Gastro-esophageal reflux disease without esophagitis; I10 Essential (primary) hypertension; J42 Unspecified chronic bronchitis; E11.9 Type 2 diabetes mellitus without complications; E78.00 Pure hypercholesterolemia, unspecified; G47.33 Obstructive sleep apnea (adult) (pediatric); F32.A Depression, unspecified; F10.10 Alcohol abuse, uncomplicated; Z79.84 Long term (current) use of oral hypoglycemic drugs; Z79.85 Long-term (current) use of injectable non-insulin antidiabetic drugs; Z79.899 Other long term (current) drug therapy; Z88.5 Allergy status to narcotic agent; Z98.890 Other specified postprocedural states
CPT/HCPCS: 45385; 82947; 88305; J2704; J2765

== ENCOUNTER → 2023-04-21 09:53 | Outpatient (BNV) | payer MEDICARE, MEDICAID, SELFPAY | PROVIDERS: PCP Internal Medicine; Visit Provider Internal Medicine Gastroenterology | DX: Z12.11 Encounter for screening for malignant neoplasm of colon (principal); D12.3 Benign neoplasm of transverse colon; K57.30 Diverticulosis of large intestine without perforation or abscess without bleeding | CPT/HCPCS: 45385 ==

== ENCOUNTER → 2023-05-01 14:54 | Outpatient (REF) | payer MEDICARE, MEDICAID, SELFPAY | LOC: HO.SL 14:54 | PROVIDERS: PCP Internal Medicine; Visit Provider Nurse Practitioner Family | DX: Z13.89 Encounter for screening for other disorder (principal) ==

== ENCOUNTER 2023-05-06 08:47 | Outpatient (AMB) | payer MEDICARE, SELFPAY ==
--- NOTE | 2023-05-06 08:49 | MHC.OFFVIS ---
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 Required: No Accompanied by: Self / Same As Patient Allergies codeine [CODEINE] Adverse Reaction (Intermediate, Verified 05/06/23 08:55) Vomiting Medication List - Last Reconciled 05/06/23 by Caren Villanueva PA-C amitriptyline 25 mg PO BEDTIME 90 days atorvastatin 80 mg PO DAILY blood sugar diagnostic As directed blood sugar diagnostic (FreeStyle Lite Strips) As directed once per day bupropion HCl 300 mg PO QAM 90 days [DIABETIC SHOES As directed] dulaglutide (Trulicity) 0.75 mg (0.5 mL) subcut QWEEK ergocalciferol (vitamin D2) 1,250 mcg PO QWEEK escitalopram oxalate 20 mg PO DAILY 90 days FreeStyle Daiana 14 Day Sensor (flash glucose sensor) As directed NS lancets (Comfort EZ Lancets) As directed once per day loratadine (Allergy Relief (loratadine)) 10 mg PO DAILY metformin 500 mg PO BID montelukast 10 mg PO BEDTIME 90 days mupirocin 2% 1 appl topical TID omeprazole 20 mg PO DAILY 90 days solifenacin 10 mg PO DAILY 30 days Trelegy Ellipta 200-62.5-25 mcg ([id number]-[id number]) 1 inh inhalation DAILY 30 days NS HPI HPI Comments History of Present Illness Details 57-year-old female personal history colon polyps follows up with patient advocate after recent colonoscopy She tolerated procedure well Intermittent acid reflux, taking omeprazole-had declined EGD Appetite is good no nausea or vomiting No issues with bowels, Reviewed procedure report, pathology, recommendations No nausea, vomiting, abdominal pain, hematemesis, hematochezia fever or chills PFSH Medical History (Updated 05/06/23 @ 10:14 by Caren Villanueva PA-C) GERD without esophagitis Blister (nonthermal), right foot, initial encounter HPV in female Urge and stress incontinence DM2 (diabetes mellitus, type 2) Hyperlipidemia LDL goal <100 Obesity (BMI 30-39.9) Depression Anxiety Alcohol abuse Obstructive sleep apnea Allergic rhinitis Migraine COPD (chronic obstructive pulmonary disease) Benign essential hypertension Pure hypercholesterolemia Diabetes mellitus Poor historian Chronic bronchitis Surgical History History of removal of cyst Family History Father CVD (cardiovascular disease) Mother Emphysema lung Cervical cancer Diabetes Brother Diabetes Myocardial infarction Sister Diabetes Stroke Other Mental health disorder Social History Household Members: None Household Members Other:: [employer] Housing: Apartment Alcohol intake: current Alcohol intake frequency: holidays/special occasions only Patient Tobacco Use Status: Never used Tobacco e-Cigarette/Vaping Use: Never Used Second Hand Smoke Exposure: Yes service: No Current occupational status: disabled Gender identity: Female Cognitive needs: No Hearing needs: Yes Vision needs: Yes Female Reproductive History Menstrual Age of Menarche: 13 Review of Systems Const All systems reviewed & are unremarkable except as noted in HPI and below Card Denies chest pain and Denies dyspnea Resp Denies dyspnea GI Denies abdominal pain, Denies change in bowel habits, Reports heartburn (Intermittent), Denies nausea and Denies vomiting Physical Exam Vital Signs: Last Vital Signs Pulse 92 05/06/23 09:01 BP 98/72 05/06/23 09:01 BMI result Body Mass Index 29.7 Const General: cooperative, healthy appearing, comfortable, no acute distress and alert Orientation/consciousness: patient oriented x3 Eyes Sclerae: sclerae normal Resp Effort & Inspection: normal respiratory effort and able to speak in complete sentences Neuro General: patient oriented x3 Extrem General: Yes full ROM Psych Mental Status: mental status grossly normal Affect: normal affect Attitude: cooperative Results Reviewed Results Reviewed: Impression and Post Procedure Diagnosis: Colonoscopy Findings: One medium sized polyp removed Moderate diverticulosis seen in the sigmoid colon Plan: Await pathology results Patient has an appointment on 05/06/23 in the GI Clinic with DANETTE Riley. Repeat Colonoscopy interval based on path results - in 3 years if polyp is adenomatous and 10 years if polyps are hyperplastic. (adult colonoscope for future colonoscopies) Above findings were reviewed with the patient and colon polyps and diverticulosis handouts were given in the discharge area me: Yasmin Gordon Age/Sex: 57/F Attending: Bradford Lutz MD : [id number] Submitted by: Bradford Lutz MD Copies to: Rogerio Waddell MD MR #: [id number] Status: [facility] Collected: 04/21/23 Location: [facility] Received: 04/21/23 Diagnosis Colon, transverse, polyp: Tubular adenoma; negative for high-grade dysplasia and carcinoma. Clinical History Pre-Op Dx: Screening Post-Op Dx: Colon polyps, diverticulosis Microscopic Description Microscopic sections reviewed. Material Received Transverse colon polyp Gross Description Received in formalin labeled ?transverse colon polyp? is a 0.6 cm in greatest dimension pink-red papular tissue fragment, bisected and entirely submitted in a cassette labeled A. CEDS Copies To Rogerio Waddell MD [address] [place] [id number] Bradford Lutz MD [address] [place] [address] [place] [id number] NOTE: Unless otherwise stated, all tissue is formalin-fixed and paraffin-embedded. Some or all of the immunohistochemical tests reported herein may have been developed and their performance characteristics determined by [facility]. They have not been cleared or approved by the U.S. Food and Drug Administration (FDA). However, the FDA has determined that such clearance or approval is not necessary. This laboratory is certified under the Clinical Laboratory Improvement Amendments of 1988 (CLIA) as qualified to perform high complexity clinical laboratory testing. Electronically Signed By: Mellissa Tavares 04/22/23 2046 Patient: Yasmin Gordon Age/Sex: 57/F MR#: [id number] Page 1 of 1 Assessment & Plan Assessment & Plan (1) Tubular adenoma: Code(s): D36.9 - Benign neoplasm, unspecified site Plan: Polyp surveillance colonoscopy- 3 years (2) Acid reflux: Comment: declines EGD- Code(s): K21.9 - Gastro-esophageal reflux disease without esophagitis Plan: reflux precautions reviewed cont ppi food diary ED protocol (3) Diverticulosis of colon: Code(s): K57.30 - Diverticulosis of large intestine without perforation or abscess without bleeding Plan: Maintain high-fiber Foods stool ER protocol Plan Maintain high-fiber ER protocol Patient Instructions: Repeat asymptomatic colonoscopy 3 years, sooner if index Maintain high-fiber literature given Foods to avoid ER protocol Acid reflux precautions reviewed Continue PPI, avoid culprits Encouraged to call questions or concerns Coding Level of Care Code Est Pt Level 3 (27895) Diagnoses Tubular adenoma D36.9 Acid reflux K21.9 Diverticulosis of colon K57.30 Time Spent (min) 30 Comment Patient advocate present
[2023-05-06 09:01] VITALS: BP 98/72; PULSE 92; BMI 29.7
== END 2023-05-06 10:51 | disposition home or self-care (01) ==
PROVIDERS: PCP Internal Medicine; Visit Provider Physician Assistant
DX: D36.9 Benign neoplasm, unspecified site (principal); K21.9 Gastro-esophageal reflux disease without esophagitis; K57.30 Diverticulosis of large intestine without perforation or abscess without bleeding
CPT/HCPCS: 99213

== ENCOUNTER → 2023-05-06 08:47 | Outpatient (BNVA) | payer MEDICARE, SELFPAY | PROVIDERS: PCP Internal Medicine; Visit Provider Physician Assistant | DX: D36.9 Benign neoplasm, unspecified site (principal); K21.9 Gastro-esophageal reflux disease without esophagitis; K57.30 Diverticulosis of large intestine without perforation or abscess without bleeding | CPT/HCPCS: 99212 ==

== ENCOUNTER → 2023-05-22 19:30 | Outpatient (REF) | payer MEDICARE, MEDICAID, SELFPAY | LOC: HO.SL 19:30 | PROVIDERS: PCP Internal Medicine; Visit Provider Nurse Practitioner Family | DX: G47.33 Obstructive sleep apnea (adult) (pediatric) (principal); R40.0 Somnolence; R06.00 Dyspnea, unspecified | CPT/HCPCS: 95810 ==

== ENCOUNTER → 2023-05-22 22:09 | Outpatient (BNV) | payer MEDICARE, MEDICAID, SELFPAY | PROVIDERS: PCP Internal Medicine; Visit Provider Psychiatry & Neurology Neurology | DX: G47.33 Obstructive sleep apnea (adult) (pediatric) (principal) | CPT/HCPCS: 95810 ==

== ENCOUNTER 2023-05-27 14:28 | Outpatient (AMB) | payer MEDICARE, MEDICAID, SELFPAY ==
[2023-05-27 14:46] VITALS: BP 96/50; PULSE 109; O2SAT 97; BMI 27.9
--- NOTE | 2023-05-27 14:46 | AM.OFFVISMDC ---
Intake Vital Signs 05/27/23 14:46 Height 4 ft 11 in Weight 138 lb BMI 27.9 BP 96/50 L Blood Pressure Location Lt brachial Position Sitting Pulse 109 H Pulse Source Pulse Oximeter Pulse Oximetry (%) 97 Oxygen Delivery Method Room Air Intake Visit Reasons: SWV G0439 Allergies codeine [CODEINE] Adverse Reaction (Intermediate, Verified 05/27/23 15:29) Vomiting Medication List - Last Reconciled 05/27/23 by Rogerio Waddell MD amitriptyline 25 mg PO BEDTIME 90 days atorvastatin 80 mg PO DAILY blood sugar diagnostic As directed blood sugar diagnostic (FreeStyle Lite Strips) As directed once per day bupropion HCl 300 mg PO QAM 90 days [DIABETIC SHOES As directed] dulaglutide (Trulicity) 0.75 mg (0.5 mL) subcut QWEEK ergocalciferol (vitamin D2) 1,250 mcg PO QWEEK escitalopram oxalate 20 mg PO DAILY 90 days FreeStyle Daiana 14 Day Sensor (flash glucose sensor) As directed NS lancets (Comfort EZ Lancets) As directed once per day loratadine (Allergy Relief (loratadine)) 10 mg PO DAILY metformin 500 mg PO BID montelukast 10 mg PO BEDTIME 90 days mupirocin 2% 1 appl topical TID omeprazole 20 mg PO DAILY 90 days solifenacin 10 mg PO DAILY 30 days Trelegy Ellipta 200-62.5-25 mcg (jgfbtatawlx-intxjbqoe-ugazpvtu) 1 inh inhalation DAILY 30 days NS HPI V G0439 HPI Details Patient comes in today for her Medicare Annual Wellness Exam AND follow up visit States that she feels okay She denies any headaches or dizziness Denies any chest pains, no increased SOB No nausea/vomiting, no abdominal pain No change in bowel habits noted She had her follow up labs done last month - to discuss her results She also had her colonoscopy done last month (April 2023) - (+) tubular adenoma and she was recommended for repeat colonoscopy in 3 years IPPE/AWV: c/o of Annual Wellness Visit, subsequent visit. Medical / Social History Reviewed Past Medical History Yes . [place] of Care / Care Team list updated Yes . Surgical/Hospitalization History Yes . Current Medications (including OTC and supplements) Yes . Family History Yes . Tobacco Control form Yes . AUDIT-C (Alcohol use) form Yes . Illicit drug use in Social History Yes . Current diagnosis of depression? No Appropriate PHQ2/PHQ9 completed Yes . Data entered by Director Of Radiology and reviewed by provider Home Safety Throw rugs? No Grab bars? No Raised toilet seats? No Working smoke detectors? Yes Working carbon monoxide detectors? Yes Data entered by Director Of Radiology and reviewed by provider Activities of Daily Living (ADLs) Difficulty bathing or showering? No Difficulty dressing? No Difficulty using the toilet? No Difficulty getting in and out of bed? No Difficulty walking? No Receives help from another person with any of the above tasks? No Instrumental Activities of Daily Living (IADLs) Uses the telephone without help Gets to places out of walking distance with help Goes shopping for groceries with help Prepares own meals without help Does own minor home maintenance without help Does own laundry with help Does own housework with help Manages own money without help Currently takes medications? Yes Takes medication with help End-of-Life Planning Discussed advance directive Yes Advance directive on file Discussed wishes expressed in advance directive agreed to following patient's wishes Fall Risk: Fall History Have you had any falls with injury in the past year? No . Have you had two or more falls in the past year? No . Fall Risk Assessment: No falls in the past year . HRA filled out by the patient, reviewed by Provider and scanned. [facility] Medical History (Updated 06/04/23 @ 12:16 by Rogerio Waddell MD) Urinary incontinence Vitamin D deficiency GERD without esophagitis Blister (nonthermal), right foot, initial encounter HPV in female Urge and stress incontinence DM2 (diabetes mellitus, type 2) Hyperlipidemia LDL goal <100 Obesity (BMI 30-39.9) Depression Anxiety Alcohol abuse Obstructive sleep apnea Allergic rhinitis Migraine COPD (chronic obstructive pulmonary disease) Benign essential hypertension Pure hypercholesterolemia Diabetes mellitus Poor historian Chronic bronchitis Surgical History (Updated 06/04/23 @ 12:01 by Rogerio Waddell MD) History of colonoscopy History of removal of cyst Family History Father CVD (cardiovascular disease) Mother Emphysema lung Cervical cancer Diabetes Brother Diabetes Myocardial infarction Sister Diabetes Stroke Other Mental health disorder Social History Household Members: None Household Members Other:: [employer] Housing: Apartment Alcohol intake: current Alcohol intake frequency: holidays/special occasions only Patient Tobacco Use Status: Never used Tobacco e-Cigarette/Vaping Use: Never Used Second Hand Smoke Exposure: Yes service: No Current occupational status: disabled Gender identity: Female Cognitive needs: No Hearing needs: Yes Vision needs: Yes Female Reproductive History Menstrual Age of Menarche: 13 Questionnaire Medicare Wellness Checkup What gender do you identify with?: female During the past 4 weeks, how much have you been bothered by emotional problems such as feeling anxious, depressed, irritable, sad or downhearted, and blue?: quite a bit During the past 4 weeks, has your physical & emotional health limited your social activities with family, friends, neighbors, or groups?: quite a bit During the past 4 weeks, how much bodily pain have you generally had?: mild pain During the past 4 weeks, was someone available to help you if you needed & wanted help?: yes, a little Can you get to places out of walking distance without help? (For eg., can you travel alone on buses, taxis or drive your car?): Yes Can you go shopping for groceries or clothes without someone's help?: Yes Can you prepare your own meals?: Yes Can you do your housework without help?: Yes Because of any health problems, do you need the help of another person with your personal care needs such as eating, bathing, dressing or getting around the house?: No Can you handle your own money without help?: Yes During the past 4 weeks, how would you rate your health in general?: very good During the past 4 weeks how have things been going for you?: pretty well Are you having difficulties driving your car?: no Do you always fasten your seat belt when you are in a car?: yes, usually During past 4 weeks, have you been bothered by the following: never: Sexual problems?, Trouble eating well? and Teeth or denture problems?, sometimes: Falling or dizzy when standing up and always: Problems using the telephone? and Tiredness or fatigue? Have you fallen 2 or more times in the past year?: No Are you afraid of falling?: Yes Are you a smoker?: no During the past 4 weeks, how many drinks of wine, beer, or other alcoholic beverages did you have?: 1 drink or less per week Do you exercise for about 20 minutes 3 or more times a week?: yes, most of the time Have you been given information to help with the following?: yes: Keeping track of your medications? and no: Hazards in your house that might hurt you? How often do you have trouble taking medicines the way you have been told to take them?: I always take medicine as prescribed How confident are you that you can control & manage most of your health problems?: very confident What is your race?: White Mini Mental State Exam (MMSE) Orientation What is the (year) (season) (date) (day) (month)?: year, season, date, day and month Where are we (state) (county) (town or city) (hospital) (floor)?: state, county, town or city, hospital/clinic and floor Score Score: 10 Activity of Daily Living Bathing - sponge bath, tub bath or shower: receives no assistance (gets in/out by self, if usual bathing means Dressing - getting clothes from closets & drawers, including inner/outer garments & fasteners.: gets clothes & gets completely dressed without help Toileting - going to the 'toilet room' for urine/bowel elimination & cleaning self/arranging clothes: goes to toilet room, cleans self, arranges clothes without help Transfer: moves in & out of bed and chair without help (may use support object) Continence: controls urination/bowel movements completely by self Feeding: feeds self without help Total Score: 0 Information obtained from: patient Using telephone: independent Traveling: dependent Shopping: needs assistance Preparing meals: independent Housework: independent Taking medicine: needs assistance Managing money: independent PHQ-9 Over the last 2 weeks, how often have you been bothered by any of the following problems? 1. Little interest or pleasure in doing things: nearly every day 2. Feeling down, depressed, or hopeless: nearly every day 3. Trouble falling or staying asleep, or sleeping too much: nearly every day 4. Feeling tired or having little energy: more than half the days 5. Poor appetite or overeating: not at all 6. Feeling bad about yourself - or that you are a failure or have let yourself or your family down: nearly every day 7. Trouble concentrating on things, such as reading the newspaper or watching television: not at all 8. Moving or speaking so slowly that other people could have noticed. Or the opposite - being so fidgety or restless that you have been moving around a lot more than usual: not at all 9. Thoughts that you would be better off or of hurting yourself in some way: nearly every day Total score: 17 Depression Screening Interpretation: Positive Depression Screening Follow-up: Existing condition and In treatment Depression Screening Done: Yes 41017 - PHQ-9 Billing: Yes Source: Developed by Drs. Wade Cardenas, Tomasa Stafford, Javier Chan and colleagues, with an educational keiko from [employer]. Review of Systems Const Denies chills, Reports fatigue, Denies fever(s) and Denies headache(s) ENT Denies dysphagia, Denies dizziness, Denies otalgia, Denies headache(s), Denies neck pain, Denies odynophagia and Denies sore throat Card Denies chest pain, Denies palpitations and Reports dyspnea on exertion (mild) Resp Denies chest congestion, Denies cough, Reports dyspnea on exertion (mild) and Denies wheezing GI Denies abdominal pain, Denies constipation, Denies dysphagia, Denies heartburn, Denies diarrhea, Denies nausea, Denies odynophagia and Denies vomiting Denies difficulty voiding, Reports nocturia, Denies dysuria, Reports urinary incontinence (at times) and Reports urinary urgency (on and off) Musc Reports back pain (over the lower back, on and off) and Denies neck pain Skin/Breast Denies rash Neuro Denies dizziness and Denies headache(s) Endo Reports fatigue and Denies palpitations Aller/Immun Denies wheezing Physical Exam Vital Signs: Last Vital Signs Pulse 109 H 05/27/23 14:46 BP 96/50 L 05/27/23 14:46 Pulse Ox 97 05/27/23 14:46 Oxygen Delivery Method Room Air 05/27/23 14:46 BMI result Body Mass Index 27.9 IPPE/AWV: Balance Romberg Yes . Tandem walk No . Walk and Turn No . Rise from sit to stand Yes . Vision Corrective lens No Vision screen pass Hearing Whisper test pass . Urinary incont. no. EKG Not clinically necessary. Const General: no acute distress and alert Orientation/consciousness: patient oriented x3 HEENT Ears: TM's normal bilaterally and EAC's normal Throat: Yes posterior oropharynx normal and Yes tonsils normal (no TP congestion) Neck Neck: Yes no lymphadenopathy and Yes supple Thyroid: Thyroid normal Resp Auscultation: clear to auscultation bilaterally, no rales and no wheezes Cardio Rate: regular rate Rhythm: regular rhythm Heart sounds: no murmurs GI Palpation (GI): Soft to palpation and nontender Auscultation: normal bowel sounds General: Yes no CVA tenderness Back/Spine/Pelvis Back: no CVA tenderness Thoracic/Lumbar Spine: lumbar spinal tenderness (mild) Skin Rashes: no rashes Neuro General: patient oriented x3 Cognition (Neuro): normal cognition Extrem General: Yes no clubbing, cyanosis or edema Psych Thought process: Normal thought process present Results Reviewed Results Reviewed: Laboratory Tests 12/23/19 04/17/23 04/17/23 14:47 13:14 13:14 WBC 8.3 Hgb 13.4 Hct 41.4 Plt Count 278 Sodium 141 Potassium 4.6 Creatinine 0.91 Estimated GFR > 60 Fasting Glucose 157 H Hemoglobin A1c % 6.7 6.8 H Calcium 9.4 AST 15 ALT 27 Triglycerides 239 H Cholesterol 166 LDL Cholesterol, Calc 72 HDL Cholesterol 47 Vitamin B12 389 25-OH Vitamin D Total 41.5 TSH 2.14 Ur Specific [place] Urine Protein Urine Glucose (UA) Urine Blood Urine Nitrite Ur Leukocyte Esterase Microalb/Creat Ratio 04/17/23 04/17/23 13:20 13:20 WBC Hgb Hct Plt Count Sodium Potassium Creatinine Estimated GFR Fasting Glucose Hemoglobin A1c % Calcium AST ALT Triglycerides Cholesterol LDL Cholesterol, Calc HDL Cholesterol Vitamin B12 25-OH Vitamin D Total TSH Ur Specific [place] 1.020 Urine Protein Trace Urine Glucose (UA) Negative Urine Blood Negative Urine Nitrite Negative Ur Leukocyte Esterase Large (3+) H Microalb/Creat Ratio 33.0 H Assessment & Plan Assessment & Plan (1) Medicare annual wellness visit, subsequent: Code(s): Z00.00 - Encounter for general adult medical examination without abnormal findings Plan: HRA form discussed and completed with patient; form will be scanned into patient's chart She is currently up-to-date with all of her cancer screenings and preventive exams - had her colonoscopy done last month (2) Diabetes mellitus: Code(s): E11.9 - Type 2 diabetes mellitus without complications Qualifiers: Diabetes mellitus complication status: without complication Diabetes mellitus senior care insulin use: without senior care use Diabetes mellitus type: type 2 Qualified Code(s): E11.9 - Type 2 diabetes mellitus without complications Plan: Her HgbA1c was at 6.8% on her labs done last month; as I have not personally seen her from 06/2021 through 01/2023, she has not had her HgbA1c checked since September 2021 until last month - HgbA1c in September 2021 was at 6.5% - goal is at least <7.0% but ideally <6.5% Reinforced diabetic diet Continue Metformin 500 mg BID and Trulicity 0.75 mg SQ once a week (3) Pure hypercholesterolemia: Code(s): E78.00 - Pure hypercholesterolemia, unspecified Plan: Results of her labs done last month reviewed and discussed with patient Reinforced low cholesterol diet Continue Atorvastatin 80 mg QD Will have patient recheck her labs and fasting lipids in 3 months for follow up (4) Benign essential hypertension: Code(s): I10 - Essential (primary) hypertension Plan: Reinforced low sodium diet - goal is systolic BP of at least 130 mm She was on Lisinopril 5 mg QD in the past but it appears that she stopped taking this at some point over a year ago and her blood pressure seems to be running lower than usual over the past couple of months even though she is not on any medications that can affect her blood pressure Her penitentiary staff/caregiver is advised to help patient monitor her blood pressure regularly for now (5) COPD (chronic obstructive pulmonary disease): Code(s): J44.9 - Chronic obstructive pulmonary disease, unspecified Qualifiers: COPD type: unspecified COPD Qualified Code(s): J44.9 - Chronic obstructive pulmonary disease, unspecified Plan: Stable Continue Trelegy Ellipta 200-62.5-25 mcg 1 inhalation QD (6) Migraine: Code(s): G43.909 - Migraine, unspecified, not intractable, without status migrainosus Qualifiers: Intractability: not intractable Migraine type: unspecified Status migrainosus presence: without status migrainosus Qualified Code(s): G43.909 - Migraine, unspecified, not intractable, without status migrainosus Plan: Stable on prophylactic Tx with Amitriptyline 25 mg Q HS Follow-up with Neurology as scheduled (7) Allergic rhinitis: Code(s): J30.9 - Allergic rhinitis, unspecified Qualifiers: Allergic rhinitis seasonality: unspecified Allergic rhinitis trigger: unspecified Qualified Code(s): J30.9 - Allergic rhinitis, unspecified Plan: Continue Montelukast 10 mg QD (8) Obstructive sleep apnea: Code(s): G47.33 - Obstructive sleep apnea (adult) (pediatric) Plan: Patient has severe MARLYN based on her repeat sleep study with CPAP titration done in March 2016 but she has been unable to tolerate a CPAP mask and is therefore unable to use a corrective CPAP device She has been offered a referral to Sleep Medicine to help her look into alternative solutions but so far, she has declined all offers to refer her Have advised her to at least consider getting a repeat test (sleep study) done since it has been a few years now and her condition and requirements may have changed since then - will discuss this again with her at her next follow up appointment (9) Vitamin D deficiency: Code(s): E55.9 - Vitamin D deficiency, unspecified Plan: Continue Vitamin D2 1250 mcg once a week (10) GERD without esophagitis: Code(s): K21.9 - Gastro-esophageal reflux disease without esophagitis Plan: Dietary restrictions reinforced Continue Omeprazole 20 mg QD (11) Urinary incontinence: Comment: has both urge and stress incontinence Code(s): R32 - Unspecified urinary incontinence Qualifiers: Urinary Incontinence type: mixed stress and urge incontinence Qualified Code(s): N39.46 - Mixed incontinence Plan: Continue Vesicare 10 mg QD Follow up with urology as scheduled (12) Alcohol abuse: Code(s): F10.10 - Alcohol abuse, uncomplicated Plan: Counseled again on continuing abstinence (13) Anxiety: Code(s): F41.9 - Anxiety disorder, unspecified Plan: States that current medications are helping - follow-up with Psychiatry as scheduled (14) Depression: Code(s): F32.9 - Major depressive disorder, single episode, unspecified Qualifiers: Active/Remission status: currently active Depression Type: major depressive disorder Major depression episode severity: moderate Major depression recurrence: recurrent Qualified Code(s): F33.1 - Major depressive disorder, recurrent, moderate Plan: Continue Escitalopram 20 mg QD and Bupropion XL 300 mg QD Follow-up with Psychiatry as scheduled (15) Obesity (BMI 30-39.9): Code(s): E66.9 - Obesity, unspecified Plan: Reinforced diet/exercise as tolerated /lose weight (16) Osteoporosis screening: Code(s): Z13.820 - Encounter for screening for osteoporosis Plan: Will send patient for BMD for osteoporosis screening - this will be her index screen Plan Follow up in 3 months Orders: Orders XR DEXA axial skeleton 24 Z78.0 - Asymptomatic menopausal state Comprehensive [place]. Panel Fast 3 Months E78.00 - Pure hypercholesterolemia, unspecified Hemoglobin A1c 3 Months E11.9 - Type 2 diabetes mellitus without complications Complete Blood Count Auto Diff 3 Months D64.9 - Anemia, unspecified Lipid Panel 3 Months E78.00 - Pure hypercholesterolemia, unspecified Microalbumin, Random (w Creat) 3 Months E11.9 - Type 2 diabetes mellitus without complications TSH reflex Free T4 3 Months E78.00 - Pure hypercholesterolemia, unspecified UA CC w/rflx Micro + Cult 3 Months R30.0 - Dysuria Vitamin D 25-OH Total 3 Months E55.9 - Vitamin D deficiency, unspecified Quality Reporting (2019) Depression/Bipolar (159/160/161/177) PHQ-9: Total score: 17 Coding Level of Care Code Medicare Subsequent (G0439) Est Pt Level 4 (95733) Diagnoses Medicare annual wellness visit, subsequent Z00.00 Type 2 diabetes mellitus without complication, without long-term current use of insulin E11.9 Diabetes mellitus complication status: without complication Diabetes mellitus terminal computer operator insulin use: without terminal computer operator use Diabetes mellitus type: type 2 Pure hypercholesterolemia E78.00 Benign essential hypertension I10 Chronic obstructive pulmonary disease, unspecified COPD type J44.9 COPD type: unspecified COPD Migraine without status migrainosus, not intractable, unspecified migraine type G43.909 Intractability: not intractable Migraine type: unspecified Status migrainosus presence: without status migrainosus Allergic rhinitis, unspecified seasonality, unspecified trigger J30.9 Allergic rhinitis seasonality: unspecified Allergic rhinitis trigger: unspecified Obstructive sleep apnea G47.33 Vitamin D deficiency E55.9 GERD without esophagitis K21.9 Mixed stress and urge urinary incontinence N39.46 Urinary Incontinence type: mixed stress and urge incontinence Alcohol abuse F10.10 Anxiety F41.9 Moderate episode of recurrent major depressive disorder F33.1 Active/Remission status: currently active Depression Type: major depressive disorder Major depression episode severity: moderate Major depression recurrence: recurrent Obesity (BMI 30-39.9) E66.9 Osteoporosis screening Z13.820
== END 2023-05-27 15:55 | disposition home or self-care (01) ==
PROVIDERS: PCP Internal Medicine; Visit Provider Internal Medicine
DX: Z00.00 Encounter for general adult medical examination without abnormal findings (principal); E11.9 Type 2 diabetes mellitus without complications; J44.9 Chronic obstructive pulmonary disease, unspecified; F33.1 Major depressive disorder, recurrent, moderate; E78.00 Pure hypercholesterolemia, unspecified; I10 Essential (primary) hypertension; G43.909 Migraine, unspecified, not intractable, without status migrainosus; J30.9 Allergic rhinitis, unspecified; G47.33 Obstructive sleep apnea (adult) (pediatric); E55.9 Vitamin D deficiency, unspecified; K21.9 Gastro-esophageal reflux disease without esophagitis; N39.46 Mixed incontinence
CPT/HCPCS: 99214; G0439

== ENCOUNTER 2023-06-12 08:34 | Outpatient (REF) | payer MEDICARE, MEDICAID, SELFPAY ==
--- NOTE | ~2023-06-12 | MM_ITS ---
EXAMINATION: BONE DENSITOMETRY CLINICAL INDICATION: Asymptomatic menopausal state. COMPARISON: This is the patient's baseline examination. TECHNIQUE: Using a [employer] DXA System (software version: 13.1) manufactured by [employer], dual-energy x-ray absorptiometry was performed of the lumbar spine and left hip. The images are of good technical quality. Summary results are attached. FINDINGS: LEFT FEMUR, NECK: BMD 0.878 g/cm2, Z-score 0.0, T-score -1.1, osteopenia. LEFT FEMUR, TOTAL: BMD 0.971 g/cm2, Z-score 0.5, T-score -0.3, normal. AP SPINE L1-L3 (excluding L4): The data of L1-L4 has been changed to exclude the L4 vertebral body, because degenerative sclerosis at this level may cause overestimation of lumbar spine density. BMD 1.203 g/cm2, Z-score 1.3, T-score 0.3, normal. IDENTIFIED RISK FACTORS: Menopause, glucocorticoids, rheumatoid arthritis, secondary osteoporosis (type 1 diabetes). HISTORY OF FRACTURE: None listed. MEDICATIONS: Vitamin D. MM/XR DEXA axial skeleton IMPRESSION: 1. DIAGNOSIS: Osteopenia based on the lowest T-score value of -1.1 in the femoral neck applying World Health Organization criteria. 2. 10-YEAR FRACTURE RISK PREDICTION, FRAX: Major osteoporotic fracture (clinical spine, forearm, hip or shoulder) 12.6%. Hip fracture 0.9%. 3. Treatment Recommendations: NOF guidelines recommend consideration for treatment in postmenopausal women and men age 50 and older presenting with the following: -A hip or vertebral (clinical or morphometric) fracture. -T-score less than or equal to -2.5 at the femoral neck or spine after appropriate evaluation to exclude secondary causes. -Low bone mass at the hip or spine and a 10-year fracture probability by FRAX of greater than or equal to 3% for hip fracture or greater than or equal to 20% for major osteoporotic fracture based on the [place] adapted WHO algorithm. 4. Other Recommendations: All treatment decisions require clinical judgment and consideration of individual patient factors, including patient preferences, comorbidities, previous drug use, risk factors not captured in the FRAX model (e.g. frailty, falls, vitamin D deficiency, increased bone turnover, interval significant decline in bone density) and possible under or overestimation of fracture risk by FRAX. Additional medical evaluation for secondary cause of low bone mineral density may be appropriate. FUTURE SCAN RECOMMENDATION: People with diagnosed cases of osteoporosis or at high risk for fracture should have regular bone mineral density tests. For patients eligible for Medicare, routine testing is allowed once every 2 years. The testing frequency can be increased to one year for patients who have rapidly progressing disease, those who are receiving or discontinuing medical therapy to restore bone mass, or have additional risk factors.
== END 2023-06-12 08:35 | disposition home or self-care (01) ==
LOC: HO.MAMMO 08:34
PROVIDERS: PCP Internal Medicine; Visit Provider Internal Medicine
DX: Z13.820 Encounter for screening for osteoporosis (principal); Z78.0 Asymptomatic menopausal state
CPT/HCPCS: 77080

== ENCOUNTER 2023-07-08 08:41 | Outpatient (REF) | payer MEDICARE, MEDICAID, SELFPAY ==
--- NOTE | ~2023-07-08 | MM_ITS ---
EXAMINATION: MM SCREENING DIGITAL BREAST TOMOSYNTHESIS, BILATERAL CLINICAL INFORMATION: Screening. Asymptomatic. COMPARISON: Mammography: 07/03/2022, 06/19/2021, 02/07/2020, 06/10/2018, 06/04/2017, 05/06/2016 TECHNIQUE: Digital breast tomosynthesis is performed in both the craniocaudal and mediolateral oblique views along with computer-aided detection (CAD). Synthesized 2D images are generated from the tomosynthesis. In addition, a second full-field right MLO projection was provided for nipple in profile. FINDINGS: There are scattered areas of fibroglandular density (ACR BI-RADS breast composition Category b). There are no suspicious masses, suspicious grouped calcifications, or areas of architectural distortion in either breast. The parenchymal pattern is stable from prior exams. There are no axillary or skin abnormalities. MM/MM tomosynthesis screening BI IMPRESSION: No mammographic evidence of malignancy. ASSESSMENT: BI-RADS BI-RADS 1 - Negative RECOMMENDATION: Routine annual mammography screening. 1 year F/U This examination should not preclude the clinical evaluation of a suspicious palpable abnormality. This patient's information was entered into a reminder system with a target due date for their next mammogram.
== END 2023-07-08 08:42 | disposition home or self-care (01) ==
LOC: HO.MAMMO 08:41
PROVIDERS: PCP Internal Medicine; Visit Provider Internal Medicine
DX: Z12.31 Encounter for screening mammogram for malignant neoplasm of breast (principal)
CPT/HCPCS: 77063; 77067

== ENCOUNTER → 2023-07-08 09:15 | Outpatient (BNV) | payer MEDICARE, MEDICAID, SELFPAY | PROVIDERS: PCP Internal Medicine; Visit Provider Radiology Diagnostic Radiology | DX: Z12.31 Encounter for screening mammogram for malignant neoplasm of breast (principal) | CPT/HCPCS: 77063; 77067 ==

== ENCOUNTER 2023-08-14 12:09 | Outpatient (REF) | payer MEDICARE, MEDICAID, SELFPAY ==
[2023-08-14 12:30] LABS: MANUAL DIFF FLAG NO
[2023-08-14 12:39] LABS: Basophils Percent Auto 0.4 % (0-2); Eosinophils Absolute Auto 0.3 X10*3/uL (0.0-0.4); Eosinophils Percent Auto 2.6 % (0-4); Hematocrit 42.6 % (37.0-47.0); Hemoglobin 13.6 g/dl (12.0-16.0); Imm Gran Abs Auto 0.09 X10*3/uL (0.00-0.03); Imm Gran Pct Auto 0.8 % (0.0-0.4); Lymphocytes Absolute Auto 2.4 X10*3/uL (1.2-4.9); Lymphocytes Percent Auto 20.7 % (20-40); Mean Corpuscular HGB Conc 31.9 g/dl (31.0-35.0); Mean Corpuscular Hemoglobin 29.2 pg (27.0-33.0); Mean Corpuscular Volume 91.4 fL (80.0-98.0); Monocytes Absolute Auto 0.7 X10*3/uL (0.1-1.2); Monocytes Percent Auto 6.4 % (2-11); Neutrophils Absolute Auto 7.9 x10*3/uL (2.0-8.3); Neutrophils Percent Auto 69.1 % (45-73); Platelet Count 273 X10*3/uL (160-400); Red Blood Count 4.66 X10*6/uL (4.20-5.50); Red Cell Distribution Width 15.2 % (11.0-16.0); White Blood Count 11.4 X10*3/uL (4.8-10.8)
[2023-08-14 12:49] LABS: Estimated Average Glucose 151 mg/dL; Hemoglobin A1c % 6.9 % (<6.0)
[2023-08-14 13:09] LABS: Alanine Aminotransferase 24 U/L (0-31); Albumin Level 4.4 g/dL (3.5-5.0); Alkaline Phosphatase 111 U/L (39-117); Anion Gap 14 (12-20); Aspartate Amino Transferase 14 U/L (5-31); Bilirubin Total 0.3 mg/dL (0.0-1.0); Blood Urea Nitrogen 20 mg/dL (9-16); Calcium 10.1 mg/dL (8.4-10.2); Carbon Dioxide 27 mmol/L (22-29); Chloride 103 mmol/L (96-108); Cholesterol 163 mg/dL (<200); Estimated Glomerular Filt Rate 54; Glucose Fasting 162 mg/dL (60-99); HDL Cholesterol 53 mg/dL (>40); LDL Cholesterol Calculated 84 mg/dL (<100); Potassium 4.8 mmol/L (3.3-5.1); Sodium 139 mmol/L (135-145); Total Protein 7.4 g/dL (6.5-8.0); Triglycerides 133 mg/dL (<150)
[2023-08-14 13:27] LABS: TSH reflex Free T4 1.86 uIU/mL (0.32-4.0); Vitamin D 25-OH Total 63.3 ng/mL (>30)
== END 2023-08-14 12:10 | disposition home or self-care (01) ==
LOC: HO.LAB 12:09
PROVIDERS: PCP Internal Medicine; Visit Provider Internal Medicine
DX: E78.00 Pure hypercholesterolemia, unspecified (principal); E55.9 Vitamin D deficiency, unspecified; E11.9 Type 2 diabetes mellitus without complications; I10 Essential (primary) hypertension
CPT/HCPCS: 36415; 80053; 80061; 82306; 83036; 84443; 85025

== ENCOUNTER 2023-08-21 12:43 | Outpatient (AMB) | payer MEDICAID, SELFPAY ==
[2023-08-21 13:11] VITALS: BP 134/80; BMI 28.3
--- NOTE | 2023-08-21 13:11 | A.OFFVIS_ITS ---
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 No complaints. Last Pap/HPV was negative in 05/07 Last Mammogram was BI-RADS 1 in 07/08 Last Colonoscopy was in 05/10 [facility] Medical History Urinary incontinence Vitamin D deficiency GERD without esophagitis Blister (nonthermal), right foot, initial encounter HPV in female Urge and stress incontinence DM2 (diabetes mellitus, type 2) Hyperlipidemia LDL goal <100 Obesity (BMI 30-39.9) Depression Anxiety Alcohol abuse Obstructive sleep apnea Allergic rhinitis Migraine COPD (chronic obstructive pulmonary disease) Benign essential hypertension Pure hypercholesterolemia Diabetes mellitus Poor historian Chronic bronchitis Surgical History History of colonoscopy History of removal of cyst Family History Father CVD (cardiovascular disease) Mother Emphysema lung Cervical cancer Diabetes Brother Diabetes Myocardial infarction Sister Diabetes Stroke Other Mental health disorder Social History Household Members: None Household Members Other:: [employer] Housing: Apartment Alcohol intake: current Alcohol intake frequency: holidays/special occasions only Patient Tobacco Use Status: Never used Tobacco e-Cigarette/Vaping Use: Never Used Second Hand Smoke Exposure: Yes service: No Current occupational status: disabled Gender identity: Female Cognitive needs: No Hearing needs: Yes Vision needs: Yes Female Reproductive History Menstrual Age of Menarche: 13 Menopause type: natural Review of Systems Const All systems reviewed & are unremarkable except as noted in HPI and below Card Reports as per HPI Resp Reports as per HPI GI Reports as per HPI and Reports no additional complaints Reports as per HPI Physical Exam Vital Signs: Last Vital Signs BP 134/80 08/21/23 13:11 BMI result Body Mass Index 28.3 Const General: cooperative, healthy appearing and comfortable Chest Chest palpation & inspection: normal inspection of the chest and normal palpation of entire chest wall Breast/axilla inspection: normal inspection of the breasts and normal inspection of the axillae Breast/axilla palpation: normal palpation of the breasts, normal palpation of the axillae and no axillary lymphadenopathy Resp Effort & Inspection: normal respiratory effort Auscultation: clear to auscultation bilaterally Percussion: percussion normal Cardio Palpation: normal PMI Rate: regular rate Rhythm: regular rhythm Heart sounds: no murmurs and no rubs Peripheral pulses: Peripheral pulses 2+ throughout GI Inspection: Yes normal to inspection Palpation (GI): Soft to palpation, nontender, no guarding, not rigid and No hepa tosplenomegaly present Percussion: Yes normal to percussion Auscultation: normal bowel sounds Rectal Exam - Female: deferred General: Yes bladder normal to palpation External Female Exam: No lesion Speculum Exam - Vagina: normal appearance of the vagina, normal palpation, normal vaginal discharge and not erythematous Speculum Exam - Cervix: normal appearance of the cervix and normal palpation Bimanual exam- vagina & uterus: normal bimanual exam, normal palpation, uterine size normal, bladder normal to palpation, consistency normal and normal palpation Bimanual Exam- Adnexa, other: normal adnexae, no masses and no tenderness Assessment & Plan Assessment & Plan (1) Well woman exam: Code(s): Z01.419 - Encounter for gynecological examination (general) (routine) without abnormal findings Category: Medical Plan: Co testing not indicated this year. Counseled the patient about the recommended dietary allowance of 1200 mg of Calcium & 600 IU of vitamin D. Instructions given the patient to schedule next screening Mammogram in 07/09. The patient was instructed to perform monthly self-breast exams and schedule annual exam in a year. All questions answered and the patient verbalized understanding. Coding Level of Care Code Est Pt Prev Care 40-64y(30112) Diagnoses Well woman exam Z01.419
== END 2023-08-21 13:58 | disposition home or self-care (01) ==
PROVIDERS: PCP Internal Medicine; Visit Provider Obstetrics & Gynecology
DX: Z01.419 Encounter for gynecological examination (general) (routine) without abnormal findings (principal)
CPT/HCPCS: 99396

== ENCOUNTER → 2023-08-21 12:43 | Outpatient (BNVA) | payer MEDICARE, MEDICAID, SELFPAY | PROVIDERS: Visit Provider Obstetrics & Gynecology | DX: Z01.419 Encounter for gynecological examination (general) (routine) without abnormal findings (principal) | CPT/HCPCS: 99396 ==

== ENCOUNTER 2023-08-26 15:31 | Outpatient (AMB) | payer MEDICARE, MEDICAID, SELFPAY ==
[2023-08-26 15:32] VITALS: BP 116/82; PULSE 104; O2SAT 93; BMI 28.1
--- NOTE | 2023-08-26 15:32 | MHC.PC.OV ---
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: No Allergies codeine [CODEINE] Adverse Reaction (Intermediate, Verified 08/26/23 16:20) Vomiting Medication List - Last Reconciled 08/26/23 by Rogerio Waddell MD amitriptyline 25 mg PO BEDTIME 90 days atorvastatin 80 mg PO DAILY blood sugar diagnostic As directed blood sugar diagnostic (FreeStyle Lite Strips) As directed once per day bupropion HCl XL 300 mg PO QAM 90 days [DIABETIC SHOES As directed] dulaglutide (Trulicity) 0.75 mg (0.5 mL) subcut QWEEK ergocalciferol (vitamin D2) 1,250 mcg PO QWEEK escitalopram oxalate 20 mg PO DAILY 90 days FreeStyle Daiana 14 Day Sensor (flash glucose sensor) As directed NS lancets (Comfort EZ Lancets) As directed once per day loratadine (Allergy Relief (loratadine)) 10 mg PO DAILY metformin 500 mg PO BID montelukast 10 mg PO BEDTIME 90 days omeprazole 20 mg PO DAILY 90 days solifenacin 10 mg PO DAILY 30 days Trelegy Ellipta 200-62.5-25 mcg ([id number]) 1 inh inhalation DAILY 30 days NS Tobacco use date assessed: 08/26/23 Dental Screening Dental Screen Date: 08/26/23 HPI Annual Exam HPI Details Patient comes in today for her annual physical examination States that she currently feels okay She denies any headaches or dizziness Denies any chest pains, no increased SOB No nausea/vomiting, no abdominal pain No change in bowel habits noted She denies any acute urinary symptoms Needs her Vitamin D Rx refilled Had her follow up labs done a couple of weeks ago - to discuss her results She had her annual mammogram done a couple of months ago in June 2023 Her initial BMD was done back in May 2023, which revealed (+) osteopenia She was just seen by Dr. Morgan for her annual gynecology exam a few days ago on 08/21/2023 Her screening colonoscopy was done by Dr. Lutz on 04/21/2023 - (+) tubular adenoma and she is recommended to have a repeat colonoscopy done in 3 years [facility] Medical History (Updated 08/26/23 @ 22:11 by Rogerio Waddell MD) Overweight (BMI 25.0-29.9) Urinary incontinence Vitamin D deficiency GERD without esophagitis Blister (nonthermal), right foot, initial encounter HPV in female Urge and stress incontinence DM2 (diabetes mellitus, type 2) Hyperlipidemia LDL goal <100 Obesity (BMI 30-39.9) Depression Anxiety Alcohol abuse Obstructive sleep apnea Allergic rhinitis Migraine COPD (chronic obstructive pulmonary disease) Benign essential hypertension Pure hypercholesterolemia Diabetes mellitus Poor historian Chronic bronchitis Surgical History History of colonoscopy History of removal of cyst Family History Father CVD (cardiovascular disease) Mother Emphysema lung Cervical cancer Diabetes Brother Diabetes Myocardial infarction Sister Diabetes Stroke Other Mental health disorder Social History Household Members: None Household Members Other:: [place] Housing: Apartment Alcohol intake: current Alcohol intake frequency: holidays/special occasions only Patient Tobacco Use Status: Never used Tobacco e-Cigarette/Vaping Use: Never Used Second Hand Smoke Exposure: Yes service: No Current occupational status: disabled Gender identity: Female Cognitive needs: No Hearing needs: Yes Vision needs: Yes Female Reproductive History Menstrual Age of Menarche: 13 Questionnaire PHQ-9 Over the last 2 weeks, how often have you been bothered by any of the following problems? 1. Little interest or pleasure in doing things: not at all 2. Feeling down, depressed, or hopeless: not at all 3. Trouble falling or staying asleep, or sleeping too much: not at all 4. Feeling tired or having little energy: not at all 5. Poor appetite or overeating: not at all 6. Feeling bad about yourself - or that you are a failure or have let yourself or your family down: not at all 7. Trouble concentrating on things, such as reading the newspaper or watching television: not at all 8. Moving or speaking so slowly that other people could have noticed. Or the opposite - being so fidgety or restless that you have been moving around a lot more than usual: not at all 9. Thoughts that you would be better off or of hurting yourself in some way: not at all Total score: 0 Depression Screening Interpretation: Positive (patient did want to answer ) Depression Screening Follow-up: Existing condition and In treatment Depression Screening Done: Yes 70537 - PHQ-9 Billing: Yes Source: Developed by Drs. Wade Cardenas, Tomasa Stafford, Javier Chan and colleagues, with an educational keiko from [employer]. Thrive Questionnaire Date Thrive assessed: 08/26/23 I am a: Patient What is your living situation today?: I have a steady place to live Within the past 12 months, did the food you bought not last and you didn't have the money to get more?: Never true Within the past 12 months, did you worry whether your food would run out before you got money to buy more?: Never true Do you have trouble paying for medicines?: No Do you have trouble getting transportation to medical appointments?: No Do you have trouble paying your heating and electricity bill?: No Do you have trouble taking care of your child, family member or friend?: No Do you have trouble with day-to-day activities such as bathing, preparing meals, shopping, managing finances, etc.?: No Are you currently unemployed and looking for a job?: No Are you interested in more education?: No Please select the resources that you would like help with: None Currently or been in a relationship where the following occur: no concerns reported THRIVE Score: 0 AUDIT C Alcohol Use Questionnaire (AUDIT-C) 1. How often do you have a drink containing alcohol?: Monthly or less 2. How many drinks containing alcohol do you have on a typical day when you are drinking?: 1 or 2 3. How often do you have six or more drinks on one occasion?: Never Total Score: 1 Score Reviewed/Action Taken: Yes DOLORES-7 AMB Questionnaire DOLORES-7 Date DOLORES - 7 assessed: 08/26/23 (patient did want to answer ) Feeling nervous, anxious, or on edge: 0 = Not at all Not being able to stop or control worryin = Not at all Worrying too much about different things: 0 = Not at all Trouble relaxin = Not at all Being so restless that it is hard to sit still: 0 = Not at all Becoming easily annoyed or irritable: 0 = Not at all Feeling afraid as if something awful might happen: 0 = Not at all Total DOLORES-7 score (0-4 normal; 5-9 mild; 10-14 moderate; 15-21 severe): 0 Source: Developed by Drs. Wade Cardenas, Tomasa Stafford, Javier Chan and colleagues, with an educational keiko from [employer]. DOLORES-7 Assessment Billing DOLORES-7 Assessment Tool: DOLORES-7 Assessment 64725 Review of Systems Const Denies chills, Reports fatigue, Denies fever(s), Denies headache(s) and Denies malaise Eyes Denies blurry vision, Denies change in vision, Denies irritation and Denies itchy eyes ENT Denies dysphagia, Denies dizziness, Denies otalgia, Denies headache(s), Denies neck pain, Denies odynophagia and Denies sore throat Card Denies chest pain, Denies rapid heart rate, Denies irregular heart rhythm, Denies palpitations and Reports dyspnea on exertion (mild) Resp Denies chest congestion, Denies cough, Reports dyspnea on exertion (mild) and Denies wheezing GI Denies abdominal pain, Denies bloating, Denies constipation, Denies dysphagia, Denies heartburn, Denies diarrhea, Denies nausea, Denies odynophagia and Denies vomiting Denies difficulty voiding, Reports nocturia, Denies dysuria, Reports urinary incontinence (at times) and Reports urinary urgency (on and off) Musc Reports back pain (over the lower back, on and off) and Denies neck pain Skin/Breast Denies breast pain, Denies breast mass, Denies change in pigmentation, Denies lesions, Denies rash and Denies unusual bruising Neuro Denies dizziness, Denies headache(s) and Denies paresthesias Psych Denies anxiety and Denies depression Endo Reports fatigue and Denies palpitations Juancarlos/Lymph Denies easy bruising Aller/Immun Denies itchy eyes and Denies wheezing Physical exam (Primary Care) Vital Signs: Last Vital Signs Pulse 104 H 08/26/23 15:32 BP 116/82 08/26/23 15:32 Pulse Ox 93 08/26/23 15:32 Oxygen Delivery Method Room Air 08/26/23 15:32 BMI result Body Mass Index 28.1 Tobacco/Smoking Status: Tobacco use Status Tobacco use date assessed 08/26/23 08/26/23 15:34 Patient Tobacco Use Status Never used Tobacco 08/26/23 15:34 e-Cigarette/Vaping Use Never Used 08/26/23 15:34 PHQ-9: PHQ-9 Score PHQ-9: Total score 0 08/26/23 16:26 Depression Screening Interpretation: Positive (patient did want to answer ) Depression Screening Follow-up: Existing condition and In treatment Thrive Assessment: Date of Thrive Assessment Date Thrive assessed 08/26/23 08/26/23 15:34 Currently or been in a relationship where the following occur: no concerns reported Const General: no acute distress, alert and awake Orientation/consciousness: patient oriented x3 HENMT Head: Yes normocephalic and Yes atraumatic Ears: external ears normal, TM's normal bilaterally and EAC's normal General nose exam: No nasal discharge present Face and sinus: Yes normal facial exam and Yes sinuses nontender Teeth and gingiva: dentition normal Throat: Yes posterior oropharynx normal and Yes tonsils normal (no TP congestion) Eyes Eyelids: Yes eyelids normal Conjunctivae: conjunctivae normal Pupils: Equal, round and reactive pupils present EOM: EOMs intact bilaterally Neck Neck: Yes no lymphadenopathy and Yes supple Thyroid: Thyroid normal Resp Auscultation: no rales, no wheezes and diminished lung sounds (slightly) bilateral Cardio Rate: regular rate Rhythm: regular rhythm Heart sounds: no murmurs GI Palpation (GI): Soft to palpation, nontender and No hepatosplenomegaly present Auscultation: normal bowel sounds General: Yes no CVA tenderness Back/Spine/Pelvis Back: no CVA tenderness Thoracic/Lumbar Spine: thoracic and lumbar spine normal to inspection Skin Lesions: no lesions Rashes: no rashes Neuro General: patient oriented x3, moves all extremities, no focal motor deficits and CN's II-XI intact bilaterally Cranial nerves: Yes Equal, round and reactive pupils present Cognition (Neuro): normal cognition Gait exam (Neuro): Normal gait present Extrem General: Yes no clubbing, cyanosis or edema Results Reviewed Results Reviewed: Laboratory Tests 12/23/19 08/14/23 14:47 12:28 WBC 11.4 H Hgb 13.6 Hct 42.6 Plt Count 273 Sodium 139 Potassium 4.8 Creatinine 1.05 Estimated GFR 54 Fasting Glucose 162 H Hemoglobin A1c % 6.7 6.9 H Calcium 10.1 D AST 14 ALT 24 Triglycerides 133 Cholesterol 163 LDL Cholesterol, Calc 84 HDL Cholesterol 53 25-OH Vitamin D Total 63.3 TSH 1.86 Assessment and Plan Assessment & Plan (1) Annual physical exam: Code(s): Z00.00 - Encounter for general adult medical examination without abnormal findings Plan: Results of her labs done a couple of weeks ago reviewed and discussed with patient She is currently up-to-date with all of her cancer screenings - she had her annual mammogram done a couple of months ago in June 2023 Her initial BMD was done back in May 2023, which revealed (+) osteopenia She was just seen by Dr. Morgan for her annual gynecology exam a few days ago on 08/21/2023 Her screening colonoscopy was done by Dr. Lutz on 04/21/2023 - (+) tubular adenoma and she is recommended to have a repeat colonoscopy done in 3 years (2) COPD (chronic obstructive pulmonary disease): Code(s): J44.9 - Chronic obstructive pulmonary disease, unspecified Qualifiers: COPD type: unspecified COPD Qualified Code(s): J44.9 - Chronic obstructive pulmonary disease, unspecified Plan: She is currently doing well on Trelegy Ellipta 200-62.5-25 mcg 1 inhalation QD She was also referred to pulmonary for further evaluation and management previously but it does not appear that she has been seen by pulmonary yet (3) Pure hypercholesterolemia: Code(s): E78.00 - Pure hypercholesterolemia, unspecified Plan: Reinforced low cholesterol diet Continue Atorvastatin 80 mg QD Will recheck her labs and fasting lipids in 3 months for follow up (4) Benign essential hypertension: Code(s): I10 - Essential (primary) hypertension Plan: Reinforced low sodium diet - goal is systolic BP of at least 130 mm or less Patient used to be on Lisinopril 5 mg QD but she appears to have stopped taking this at some point - not clear at this time when or why but her BP appears to be controlled without the Rx Have advised patient to continue monitoring her blood pressure regularly for now (5) Diabetes mellitus: Code(s): E11.9 - Type 2 diabetes mellitus without complications Qualifiers: Diabetes mellitus complication status: without complication Diabetes mellitus usp insulin use: without long term care phlebotomist use Diabetes mellitus type: type 2 Qualified Code(s): E11.9 - Type 2 diabetes mellitus without complications Plan: Her HgbA1c was at 6.9% on her labs done a couple of weeks ago (was at 6.8% a few months ago) - goal is at least <7.0% Reinforced diabetic diet Continue Metformin 500 mg BID and Trulicity 0.75 mg SQ once a week for now Patient was following up with Dulce Maria Oneill at [facility] for her diabetes but it does not look like she has been seen by them since her last visit with Dulce Maria Oneill in June 2021 She was previously referred back to [facility] for follow up and management of her diabetes but was advised that since her diabetes appear well-controlled, she should just follow up with her PCP and does not need to see endocrinology (6) Allergic rhinitis: Code(s): J30.9 - Allergic rhinitis, unspecified Qualifiers: Allergic rhinitis seasonality: unspecified Allergic rhinitis trigger: unspecified Qualified Code(s): J30.9 - Allergic rhinitis, unspecified Plan: Continue Montelukast 10 mg once a day (7) GERD without esophagitis: Code(s): K21.9 - Gastro-esophageal reflux disease without esophagitis Plan: Dietary restrictions reinforced Continue Omeprazole 20 mg QD (8) Obstructive sleep apnea: Code(s): G47.33 - Obstructive sleep apnea (adult) (pediatric) Plan: Patient has severe MARLYN based on her repeat sleep study with CPAP titration done in March 2016 but has been unable to tolerate a CPAP mask? and is therefore unable to use a corrective CPAP device She was advised that she should consider seeing Sleep Medicine so they can help her look into this further - patient states that she would like to think about this for now (9) OAB (overactive bladder): Code(s): N32.81 - Overactive bladder Plan: Continue Solifenacin 10 mg QD Follow up with urology as scheduled (10) Anxiety: Code(s): F41.9 - Anxiety disorder, unspecified Plan: States that current medications are helping -? follow-up with Psychiatry as scheduled (11) Depression: Code(s): F32.9 - Major depressive disorder, single episode, unspecified Qualifiers: Active/Remission status: currently active Depression Type: major depressive disorder Major depression episode severity: moderate Major depression recurrence: recurrent Qualified Code(s): F33.1 - Major depressive disorder, recurrent, moderate Plan: Continue Escitalopram 20 mg QD, Bupropion 300 mg Q AM and Amitriptyline 25 mg Q HS Follow-up with Psychiatry as scheduled (12) Overweight (BMI 25.0-29.9): Code(s): E66.3 - Overweight Plan: Reinforced diet/exercise as tolerated/lose weight Plan Follow up in 3 months Orders: Orders Lipid Panel 3 Months E78.00 - Pure hypercholesterolemia, unspecified TSH reflex Free T4 3 Months E78.00 - Pure hypercholesterolemia, unspecified Vitamin D 25-OH Total 3 Months E55.9 - Vitamin D deficiency, unspecified Vitamin B12 and Folate 3 Months E53.8 - Deficiency of other specified B group vitamins Hemoglobin A1c 3 Months E11.9 - Type 2 diabetes mellitus without complications Complete Blood Count Auto Diff 3 Months D64.9 - Anemia, unspecified Comprehensive [place]. Panel Fast 3 Months E78.00 - Pure hypercholesterolemia, unspecified Microalbumin, Random (w Creat) 3 Months E11.9 - Type 2 diabetes mellitus without complications UA CC w/rflx Micro + Cult 3 Months R30.0 - Dysuria Medications: Changed From ergocalciferol (vitamin D2) 1,250 mcg PO QWEEK To ergocalciferol (vitamin D2) 1,250 mcg PO QWEEK 3 months 13 caps 3RF Coding Level of Care Code Est Pt Prev Care 40-64y(13661) Diagnoses Annual physical exam Z00.00 Chronic obstructive pulmonary disease, unspecified COPD type J44.9 COPD type: unspecified COPD Pure hypercholesterolemia E78.00 Benign essential hypertension I10 Type 2 diabetes mellitus without complication, without long-term current use of insulin E11.9 Diabetes mellitus complication status: without complication Diabetes mellitus long term care phlebotomist insulin use: without long term care phlebotomist use Diabetes mellitus type: type 2 Allergic rhinitis, unspecified seasonality, unspecified trigger J30.9 Allergic rhinitis seasonality: unspecified Allergic rhinitis trigger: unspecified GERD without esophagitis K21.9 Obstructive sleep apnea G47.33 OAB (overactive bladder) N32.81 Anxiety F41.9 Moderate episode of recurrent major depressive disorder F33.1 Active/Remission status: currently active Depression Type: major depressive disorder Major depression episode severity: moderate Major depression recurrence: recurrent Overweight (BMI 25.0-29.9) E66.3 Additional Codes DOLORES-7 Assessment Billing - DOLORES-7 Assessment Tool: DOLORES-7 Assessment [id number] ([id number])
== END 2023-08-26 16:28 | disposition home or self-care (01) ==
PROVIDERS: PCP Internal Medicine; Visit Provider Internal Medicine
DX: Z00.00 Encounter for general adult medical examination without abnormal findings (principal); J44.9 Chronic obstructive pulmonary disease, unspecified; E11.9 Type 2 diabetes mellitus without complications; F33.1 Major depressive disorder, recurrent, moderate; E78.00 Pure hypercholesterolemia, unspecified; I10 Essential (primary) hypertension; J30.9 Allergic rhinitis, unspecified; K21.9 Gastro-esophageal reflux disease without esophagitis; G47.33 Obstructive sleep apnea (adult) (pediatric); N32.81 Overactive bladder; F41.9 Anxiety disorder, unspecified
CPT/HCPCS: 99396

== ENCOUNTER 2023-09-30 10:06 | Outpatient (AMB) | payer MEDICARE, MEDICAID, SELFPAY ==
[2023-09-30 10:20] VITALS: BP 100/70; PULSE 96; TEMP 36.6; O2SAT 97
--- NOTE | 2023-09-30 10:20 | AM.OFFWIN_ITS ---
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 Patient denies having any fevers, chills, chest pain, hemoptysis or shortness of breath. Patient is uncertain what medications she is taking for her seasonal allergies. [facility] Medical History Overweight (BMI 25.0-29.9) Urinary incontinence Vitamin D deficiency GERD without esophagitis Blister (nonthermal), right foot, initial encounter HPV in female Urge and stress incontinence DM2 (diabetes mellitus, type 2) Hyperlipidemia LDL goal <100 Obesity (BMI 30-39.9) Depression Anxiety Alcohol abuse Obstructive sleep apnea Allergic rhinitis Migraine COPD (chronic obstructive pulmonary disease) Benign essential hypertension Pure hypercholesterolemia Diabetes mellitus Poor historian Chronic bronchitis Surgical History History of colonoscopy History of removal of cyst Family History Father CVD (cardiovascular disease) Mother Emphysema lung Cervical cancer Diabetes Brother Diabetes Myocardial infarction Sister Diabetes Stroke Other Mental health disorder Social History Household Members: None Household Members Other:: [employer] Housing: Apartment Alcohol intake: current Alcohol intake frequency: holidays/special occasions only Patient Tobacco Use Status: Never used Tobacco e-Cigarette/Vaping Use: Never Used Second Hand Smoke Exposure: Yes service: No Current occupational status: disabled Gender identity: Female Cognitive needs: No Hearing needs: Yes Vision needs: Yes Female Reproductive History Menstrual Age of Menarche: 13 Review of Systems Const All systems reviewed & are unremarkable except as noted in HPI and below Denies chills, Denies fever(s) and Denies malaise Eyes Reports no additional complaints ENT Reports no additional complaints Card Reports no additional complaints, Denies chest pain, Denies chest pain with activity and Denies dyspnea Resp Reports cough and Denies dyspnea GI Reports no additional complaints Reports no additional complaints Musc Reports no additional complaints Neuro Reports no additional complaints Physical Exam Vital Signs: Last Vital Signs Temp 97.8 F 09/30/23 10:20 Pulse 96 09/30/23 10:20 BP 100/70 09/30/23 10:20 Pulse Ox 97 09/30/23 10:20 Patient is afebrile and is not hypoxic or tachypneic Const General: cooperative, healthy appearing, comfortable, no acute distress, well developed, alert, awake and Physically active Nutritional Appearance: overweight Orientation/consciousness: patient oriented x3 Limitations: no limitations HEENT Head: Yes normal to inspection Ears: hearing grossly normal bilaterally and TM's abnormal bilaterally (TMs bulging bilaterally without erythema or fluid level) General nose exam: Normal external nose present Face and sinus: Yes normal facial exam and Yes sinuses nontender Mouth: Normal oral and palatal mucosa present, oropharynx normal and moist mucous membranes Throat: Yes posterior oropharynx normal and No postnasal drainage Neck Lymphatic: no lymphadenopathy noted Resp Effort & Inspection: normal respiratory effort, able to speak in complete sentences, no audible wheezes, no cough and no respiratory distress Auscultation: clear to auscultation bilaterally Cardio Rate: regular rate Rhythm: regular rhythm Neuro General: patient oriented x3 Psych Appearance: grossly normal Mental Status: mental status grossly normal Insight: Good insight present (Psych) Judgement: Good judgement present (Psych) Assessment & Plan Assessment & Plan (1) Cough: Code(s): R05 - Cough Qualifiers: Cough type: chronic Qualified Code(s): R05.3 - Chronic cough Plan Patient is afebrile and there is no evidence of respiratory distress. Lungs are clear to auscultation bilaterally. It is unclear to both the patient and her worker what medications the patient is taking for her seasonal allergies. Patient has both Singulair and loratadine prescribed however the loratadine is noted to be only as needed. Patient will be discharged with instructions to be taking Singulair and loratadine daily. Patient Instructions: Please take your Singulair and loratadine daily as prescribed. Follow up with your primary care provider within 5-7 days if your symptoms are not improving, sooner if they worsen. Coding Level of Care Code Est Pt Level 3 (26770) Diagnoses Chronic cough R05.3 Cough type: chronic Time Spent (min) 20
== END 2023-09-30 10:58 | disposition home or self-care (01) ==
PROVIDERS: PCP Internal Medicine; Visit Provider Physician Assistant
DX: R05.3 Chronic cough (principal)
CPT/HCPCS: 99213

== ENCOUNTER 2023-12-25 10:21 | Outpatient (AMB) | payer MEDICARE, MEDICAID, SELFPAY ==
--- NOTE | 2023-12-25 10:42 | MHC.PC.OV ---
Vital Signs 12/25/23 10:44 Height 4 ft 11 in Weight 141 lb 6 oz BMI 28.6 BP 110/70 Blood Pressure Location Lt brachial Position Sitting Pulse 85 Pulse Source Pulse Oximeter Pulse Oximetry (%) 94 Oxygen Delivery Method Room Air Intake Visit Reasons: 3mth f/u Intake Note: Patient is here to follow up on DM, HLD, MARLYN, COPD. Compliant of cough on going. Power Tong Operator Required: No [employer] Laboratory Director: Present Accompanied by: staff Allergies codeine [CODEINE] Adverse Reaction (Intermediate, Verified 12/25/23 11:15) Vomiting Medication List - Last Reconciled 12/25/23 by Rogerio Waddell MD amitriptyline 25 mg PO BEDTIME 90 days atorvastatin 80 mg PO DAILY blood sugar diagnostic As directed blood sugar diagnostic (FreeStyle Lite Strips) As directed once per day bupropion HCl XL 300 mg PO QAM 90 days [DIABETIC SHOES As directed] dulaglutide (Trulicity) 0.75 mg (0.5 mL) subcut QWEEK ergocalciferol (vitamin D2) 1,250 mcg PO QWEEK 3 months escitalopram oxalate 20 mg PO DAILY 90 days lancets (Comfort EZ Lancets) As directed once per day loratadine (Allergy Relief (loratadine)) 10 mg PO DAILY metformin 500 mg PO BID montelukast 10 mg PO BEDTIME 90 days omeprazole 20 mg PO DAILY 90 days solifenacin 10 mg PO DAILY 30 days Trelegy Ellipta 200-62.5-25 mcg ([id number]-ztwinkfap-eeikmmqh) 1 inh inhalation DAILY 30 days NS Tobacco use date assessed: 12/25/23 Dental Screening Dental Screen Date: 08/26/23 HPI 3mth f/u HPI Details Patient comes in today for her follow up visit States that she has been experiencing symptoms of increased cough and chest congestion for more than a week now States that her chest feels tight often and she coughs up some phlegm at times but feels like there's more phlegm in her chest that she cannot cough up She denies any fever or sore throat Denies any headaches or dizziness Denies any chest pains, no SOB No nausea/vomiting, no abdominal pain No change in bowel habits noted She needs a few of her Rx refilled today She was not able to get her follow up labs done prior to her visit today [facility] Medical History Overweight (BMI 25.0-29.9) Urinary incontinence Vitamin D deficiency GERD without esophagitis Blister (nonthermal), right foot, initial encounter HPV in female Urge and stress incontinence DM2 (diabetes mellitus, type 2) Hyperlipidemia LDL goal <100 Obesity (BMI 30-39.9) Depression Anxiety Alcohol abuse Obstructive sleep apnea Allergic rhinitis Migraine COPD (chronic obstructive pulmonary disease) Benign essential hypertension Pure hypercholesterolemia Diabetes mellitus Poor historian Chronic bronchitis Surgical History History of colonoscopy History of removal of cyst Family History Father CVD (cardiovascular disease) Mother Emphysema lung Cervical cancer Diabetes Brother Diabetes Myocardial infarction Sister Diabetes Stroke Other Mental health disorder Social History Household Members: None Household Members Other:: [employer] Housing: Apartment Alcohol intake: current Alcohol intake frequency: holidays/special occasions only Patient Tobacco Use Status: Never used Tobacco e-Cigarette/Vaping Use: Never Used Second Hand Smoke Exposure: Yes service: No Current occupational status: disabled Gender identity: Female Cognitive needs: No Hearing needs: Yes Vision needs: Yes Female Reproductive History Menstrual Age of Menarche: 13 Questionnaire Thrive Questionnaire Date Thrive assessed: 08/26/23 Are you currently unemployed and looking for a job?: No DOLORES-7 AMB Questionnaire DOLORES-7 Date DOLORES - 7 assessed: 08/26/23 Source: Developed by Drs. Wade Cardenas, Tomasa Stafford, Javier Chan and colleagues, with an educational keiko from [employer]. Review of Systems Const Denies chills, Reports fatigue, Denies fever(s) and Denies headache(s) ENT Denies dysphagia, Denies dizziness, Denies otalgia, Denies headache(s), Reports nasal congestion, Denies neck pain, Denies odynophagia and Denies sore throat Card Denies chest pain, Denies rapid heart rate, Denies irregular heart rhythm, Denies palpitations and Reports dyspnea on exertion (mild) Resp Reports chest congestion (chest feels tight at times), Reports cough (recurrent; coughs up thick whitish phlegm at times), Denies pain with cough, Reports dyspnea on exertion (mild) and Denies wheezing GI Denies abdominal pain, Denies constipation, Denies dysphagia, Denies heartburn, Denies diarrhea, Denies nausea, Denies odynophagia and Denies vomiting Denies difficulty voiding, Reports nocturia, Denies dysuria, Reports urinary incontinence (at times) and Reports urinary urgency (on and off) Musc Reports back pain (over the lower back, on and off) and Denies neck pain Skin/Breast Denies rash Neuro Denies dizziness, Denies headache(s) and Denies paresthesias Psych Denies anxiety and Denies depression Endo Reports fatigue and Denies palpitations Juancarlos/Lymph Denies easy bruising Aller/Immun Denies wheezing Physical exam (Primary Care) Vital Signs: Last Vital Signs Pulse 85 12/25/23 10:44 BP 110/70 12/25/23 10:44 Pulse Ox 94 12/25/23 10:44 Oxygen Delivery Method Room Air 12/25/23 10:44 BMI result Body Mass Index 28.6 Tobacco/Smoking Status: Tobacco use Status Tobacco use date assessed 12/25/23 12/25/23 10:51 Patient Tobacco Use Status Never used Tobacco 12/25/23 10:51 e-Cigarette/Vaping Use Never Used 12/25/23 10:51 Thrive Assessment: Date of Thrive Assessment Date Thrive assessed 08/26/23 12/25/23 10:51 Const General: no acute distress and alert HENMT Ears: TM's normal bilaterally and EAC's normal Throat: Yes posterior oropharynx normal and Yes tonsils normal (no TP congestion) Neck Neck: Yes no lymphadenopathy and Yes supple Thyroid: Thyroid normal Resp Auscultation: no crackles, no rales, rhonchi (scattered) throughout, no wheezes, diminished lung sounds (slightly) bilateral and bronchial breath sounds bilateral Cardio Rate: regular rate Rhythm: regular rhythm Heart sounds: no murmurs GI Palpation (GI): Soft to palpation and nontender Auscultation: normal bowel sounds General: Yes no CVA tenderness Back/Spine/Pelvis Back: no CVA tenderness Skin Rashes: no rashes Extrem General: Yes no clubbing, cyanosis or edema Results AMB Hemoglobin A1c AMB Hemoglobin A1c 6.5 % Last Edit by LENO Magana on 12/25/23 10:57 Results Reviewed Results Reviewed: Laboratory Last Values Hgb A1c (Clinic) 6.5 % (4.0-6.0) H 12/25/23 10:41 Coding Level of Care Code Est Pt Level 4 (29055) Diagnoses COPD exacerbation J44.1 Type 2 diabetes mellitus without complication, without long-term current use of insulin E11.9 Diabetes mellitus type: type 2 Diabetes mellitus senior care insulin use: without termination clerk use Diabetes mellitus complication status: without complication Pure hypercholesterolemia E78.00 Benign essential hypertension I10 Allergic rhinitis, unspecified seasonality, unspecified trigger J30.9 Allergic rhinitis trigger: unspecified Allergic rhinitis seasonality: unspecified Obstructive sleep apnea G47.33 GERD without esophagitis K21.9 OAB (overactive bladder) N32.81 Anxiety F41.9 Moderate episode of recurrent major depressive disorder F33.1 Depression Type: major depressive disorder Major depression recurrence: recurrent Active/Remission status: currently active Major depression episode severity: moderate Overweight (BMI 25.0-29.9) E66.3 Assessment & Plan Assessment & Plan (1) COPD exacerbation: Code(s): J44.1 - Chronic obstructive pulmonary disease with (acute) exacerbation Category: Medical Plan: Will start patient empirically on Cefuroxime 500 mg BID x 10 days Continue Trelegy Ellipta 200-62.5-25 mcg 1 inhalation QD and Albuterol HFA 1 to 2 inhalations QID PRN Follow up with pulmonary (Dr. Gleason) as scheduled (2) Diabetes mellitus: Code(s): E11.9 - Type 2 diabetes mellitus without complications Category: Medical Qualifiers: Diabetes mellitus type: type 2 Diabetes mellitus senior care insulin use: without termination clerk use Diabetes mellitus complication status: without complication Qualified Code(s): E11.9 - Type 2 diabetes mellitus without complications Plan: Her in-office HgbA1c done today is at 6.5% (HgbA1c was at 6.9% a few months ago) - goal is at least <7.0% Reinforced diabetic diet Continue Metformin 500 mg BID and Trulicity 0.75 mg SQ once a week Patient was following up with Dulce Maria Oneill at [facility] for her diabetes but it does not look like she has been seen by them since her last visit with Dulce Maria Oneill in June 2021 She was previously referred back to [facility] for follow up and management of her diabetes but was advised that since her diabetes appear well-controlled, she should just follow up with her PCP and does not need to see endocrinology (3) Pure hypercholesterolemia: Code(s): E78.00 - Pure hypercholesterolemia, unspecified Category: Medical Plan: She was not able to get her follow up labs done prior to her appointment today Reinforced low cholesterol diet Continue Atorvastatin 80 mg QD Will recheck her labs and fasting lipids in 3 months for follow up (4) Benign essential hypertension: Code(s): I10 - Essential (primary) hypertension Category: Medical Plan: Reinforced low sodium diet - goal is systolic BP of at least 130 mm or less Patient used to be on Lisinopril 5 mg QD but she appears to have stopped taking this at some point - not clear at this time when or why but her BP appears to be controlled without the Rx Have advised patient to continue monitoring her blood pressure regularly for now (5) Allergic rhinitis: Code(s): J30.9 - Allergic rhinitis, unspecified Category: Medical Qualifiers: Allergic rhinitis trigger: unspecified Allergic rhinitis seasonality: unspecified Qualified Code(s): J30.9 - Allergic rhinitis, unspecified Plan: Continue Montelukast 10 mg QD (6) Obstructive sleep apnea: Code(s): G47.33 - Obstructive sleep apnea (adult) (pediatric) Category: Medical Plan: Patient has severe MARLYN based on her repeat sleep study with CPAP titration done in March 2016 but has been unable to tolerate a CPAP mask? and is therefore unable to use a corrective CPAP device She has been advised that she should consider seeing Sleep Medicine so they can help her look into this further (7) GERD without esophagitis: Code(s): K21.9 - Gastro-esophageal reflux disease without esophagitis Category: Medical Plan: Dietary restrictions reinforced Continue Omeprazole 20 mg QD (8) OAB (overactive bladder): Code(s): N32.81 - Overactive bladder Category: Medical Plan: Continue Solifenacin 10 mg QD Follow up with urology as scheduled (9) Anxiety: Code(s): F41.9 - Anxiety disorder, unspecified Category: Medical Plan: Patient states that current medications are helping -? follow-up with Psychiatry as scheduled (10) Depression: Code(s): F32.9 - Major depressive disorder, single episode, unspecified Category: Medical Qualifiers: Depression Type: major depressive disorder Major depression recurrence: recurrent Active/Remission status: currently active Major depression episode severity: moderate Qualified Code(s): F33.1 - Major depressive disorder, recurrent, moderate Plan: Continue Escitalopram 20 mg QD, Bupropion 300 mg Q AM and Amitriptyline 25 mg Q HS Follow-up with Psychiatry as scheduled (11) Overweight (BMI 25.0-29.9): Code(s): E66.3 - Overweight Category: Medical Plan: Reinforced diet/exercise as tolerated/lose weight Plan Follow up in 3 months Orders: Orders AMB Hemoglobin A1c 12/25/23 E11.9 - Type 2 diabetes mellitus without complications Complete Blood Count Auto Diff 3 Months D64.9 - Anemia, unspecified Comprehensive [place]. Panel Fast 3 Months E78.00 - Pure hypercholesterolemia, unspecified UA CC w/rflx Micro + Cult 3 Months R30.0 - Dysuria Vitamin B12 and Folate 3 Months E53.8 - Deficiency of other specified B group vitamins Vitamin D 25-OH Total 3 Months E55.9 - Vitamin D deficiency, unspecified Lipid Panel 3 Months E78.00 - Pure hypercholesterolemia, unspecified Hemoglobin A1c 3 Months E11.9 - Type 2 diabetes mellitus without complications Microalbumin, Random (w Creat) 3 Months E11.9 - Type 2 diabetes mellitus without complications TSH reflex Free T4 3 Months E78.00 - Pure hypercholesterolemia, unspecified Medications: New cefuroxime axetil 500 mg PO BID 10 days 20 tabs 0RF albuterol sulfate 90 mcg/actuation (Ventolin HFA) 2 puffs inhalation Q6H 30 days PRN 8.5 grams 5RF shortness of breath or wheezing Refilled dulaglutide (Trulicity) 0.75 mg (0.5 mL) subcut QWEEK 2 mL 2RF escitalopram oxalate 20 mg PO DAILY 90 days 90 tabs 1RF solifenacin 10 mg PO DAILY 30 days 90 tabs 3RF amitriptyline 25 mg PO BEDTIME 90 days 90 tabs 1RF atorvastatin 80 mg PO DAILY 90 tabs 1RF bupropion HCl XL 300 mg PO QAM 90 days 90 tabs 1RF omeprazole 20 mg PO DAILY 90 days 90 caps 1RF Trelegy Ellipta 200-62.5-25 mcg (hkxmdojxkeg-[id number]-szqiaaxq) 1 inh inhalation DAILY 30 days 60 ea 3RF NS J44.9 - Chronic obstructive pulmonary disease, unspecified
[2023-12-25 10:44] VITALS: BP 110/70; PULSE 85; O2SAT 94; BMI 28.6
== END 2023-12-25 11:29 | disposition home or self-care (01) ==
PROVIDERS: PCP Internal Medicine; Visit Provider Internal Medicine
DX: J44.1 Chronic obstructive pulmonary disease with (acute) exacerbation (principal); E11.9 Type 2 diabetes mellitus without complications; F33.1 Major depressive disorder, recurrent, moderate; E78.00 Pure hypercholesterolemia, unspecified; I10 Essential (primary) hypertension; J30.9 Allergic rhinitis, unspecified; G47.33 Obstructive sleep apnea (adult) (pediatric); E66.811 Obesity, class 1; Z68.28 Body mass index [BMI] 28.0-28.9, adult; K21.9 Gastro-esophageal reflux disease without esophagitis; N32.81 Overactive bladder; F41.9 Anxiety disorder, unspecified

== ENCOUNTER → 2023-12-25 10:21 | Outpatient (BNVA) | payer MEDICARE, MEDICAID, SELFPAY | PROVIDERS: PCP Internal Medicine; Visit Provider Internal Medicine | DX: E11.9 Type 2 diabetes mellitus without complications (principal); J44.1 Chronic obstructive pulmonary disease with (acute) exacerbation; E78.00 Pure hypercholesterolemia, unspecified; I10 Essential (primary) hypertension; J30.9 Allergic rhinitis, unspecified; G47.33 Obstructive sleep apnea (adult) (pediatric); K21.9 Gastro-esophageal reflux disease without esophagitis; N32.81 Overactive bladder; F41.9 Anxiety disorder, unspecified; F33.1 Major depressive disorder, recurrent, moderate; E66.3 Overweight; Z68.28 Body mass index [BMI] 28.0-28.9, adult; Z79.84 Long term (current) use of oral hypoglycemic drugs; Z79.899 Other long term (current) drug therapy | CPT/HCPCS: 83036; 99212 ==

== ENCOUNTER 2024-01-10 08:20 | Outpatient (REF) | payer MEDICARE, MEDICAID, SELFPAY ==
--- NOTE | ~2024-01-10 | XR_ITS ---
EXAMINATION: XR chest 2V CLINICAL INFORMATION: J98.8 - Other specified respiratory disorders COMPARISON: Chest radiograph 06/15/2022 TECHNIQUE: 2 views of the chest FINDINGS: Clear lungs. No pneumothorax. No pleural effusion. Unchanged cardiomediastinal silhouette. XR/XR chest 2V IMPRESSION: Clear lungs. Electronically signed by: Angela Figueroa MD 01/28/2024 04:[address] [facility]
== END 2024-01-10 08:21 | disposition home or self-care (01) ==
LOC: HO.XRAY 08:20
PROVIDERS: PCP Internal Medicine; Visit Provider Internal Medicine
DX: J98.8 Other specified respiratory disorders (principal)
CPT/HCPCS: 71046

== ENCOUNTER 2024-01-22 12:37 | Outpatient (AMB) | payer MEDICARE, MEDICAID, SELFPAY ==
--- NOTE | 2024-01-21 19:18 | A.OFFVIS_ITS ---
Intake Visit Reasons: 1y follow up/PVR Intake Note: Patient presents today for a 1 yr follow-up for OAB: Meds- Solifenanci Allergies to Antibiotic- NONE Blood Thinner- NONE TODAY'S PVR:0ML'S Wrecking Mechanic Required: No Accompanied by: Other Relationship Allergies codeine [CODEINE] Adverse Reaction (Intermediate, Verified 01/22/24 13:22) Vomiting Medication List - Last Reconciled 01/22/24 by Lasha Chu MD albuterol sulfate 90 mcg/actuation (Ventolin HFA) 2 puffs inhalation Q6H PRN 30 days amitriptyline 25 mg PO BEDTIME 90 days atorvastatin 80 mg PO DAILY blood sugar diagnostic As directed blood sugar diagnostic (FreeStyle Lite Strips) As directed once per day bupropion HCl XL 300 mg PO QAM 90 days [DIABETIC SHOES As directed] dulaglutide (Trulicity) 0.75 mg (0.5 mL) subcut QWEEK ergocalciferol (vitamin D2) 1,250 mcg PO QWEEK 3 months escitalopram oxalate 20 mg PO DAILY 90 days lancets (Comfort EZ Lancets) As directed once per day loratadine (Allergy Relief (loratadine)) 10 mg PO DAILY metformin 500 mg PO BID montelukast 10 mg PO BEDTIME 90 days omeprazole 20 mg PO DAILY 90 days solifenacin 10 mg PO DAILY 30 days Trelegy Ellipta 200-62.5-25 mcg (bcgxhbflkwg-mkotiifmv-xxrbqgoa) 1 inh inhalation DAILY 30 days NS HPI Comments Details: 01/22/24--FU OAB symptoms. Yasmin is a 58-year-old female who is here for follow- up. She is here with her support case maker. The patient has a history of diabetes and is hearing impaired. She is on VESIcare 10 mg for overactive bladder symptoms. She states she has been doing well denies needing to wear a pad or having urinary leakage. The patient is unable to give a urine specimen. Bladder scan PVR is 0 mL. In further questioning the patient states that she has some vaginal itching and burning. I want her to provide a urine sample so we can rule out a UTI and have advised as long as that is normal she needs to follow-up with her clinician oncology. She has seen Dr. Cathy iglesias and had a well visit in August of this year. Plan will be to check urinalysis continue VESIcare. Review of chart: 01/17/2023? Yasmin is here for one year follow-up. Last visit: 01/16/2022?The patient has a history of diabetes and she is hearing impaired. She is here today with her support case maker. She is on VESIcare 10 mg for overactive bladder symptoms. She states that her urgency is controlled on the medication. She denies irritative voiding symptoms. She is up 2-3 times at night to urinate. She does admit drinking caffeinated beverages and states she drinks a lot of water throughout the day. She is unable to give a urine sample today. Evaluation - b ladder scan PVR 0 mL [facility] Medical History Overweight (BMI 25.0-29.9) Urinary incontinence Vitamin D deficiency GERD without esophagitis Blister (nonthermal), right foot, initial encounter HPV in female Urge and stress incontinence DM2 (diabetes mellitus, type 2) Hyperlipidemia LDL goal <100 Obesity (BMI 30-39.9) Depression Anxiety Alcohol abuse Obstructive sleep apnea Allergic rhinitis Migraine COPD (chronic obstructive pulmonary disease) Benign essential hypertension Pure hypercholesterolemia Diabetes mellitus Poor historian Chronic bronchitis Surgical History History of colonoscopy History of removal of cyst Family History Father CVD (cardiovascular disease) Mother Emphysema lung Cervical cancer Diabetes Brother Diabetes Myocardial infarction Sister Diabetes Stroke Other Mental health disorder Social History Household Members: None Household Members Other:: [employer] Housing: Apartment Alcohol intake: current Alcohol intake frequency: holidays/special occasions only Patient Tobacco Use Status: Never used Tobacco e-Cigarette/Vaping Use: Never Used Second Hand Smoke Exposure: Yes service: No Current occupational status: disabled Gender identity: Female Cognitive needs: No Hearing needs: Yes Vision needs: Yes Female Reproductive History Menstrual Age of Menarche: 13 Review of Systems Const All systems reviewed & are unremarkable except as noted in HPI and below Reports no additional complaints Eyes Reports no additional complaints ENT Reports no additional complaints Card Reports no additional complaints Resp Reports no additional complaints GI Reports no additional complaints Reports as per HPI Musc Reports no additional complaints Skin/Breast Reports system reviewed and no additional complaints, except as documented Neuro Reports no additional complaints Psych Reports no additional complaints Endo Reports no additional complaints Juancarlos/Lymph Reports no additional complaints Aller/Immun Reports no additional complaints Office Procedures Post Void Residual Post Residual Void Post Void Residual (PVR): 0 [id number] Void Residual by ultrasound Assessment & Plan Assessment & Plan (1) OAB (overactive bladder): Code(s): N32.81 - Overactive bladder Category: Medical (2) Dysuria: Code(s): R30.0 - Dysuria Category: Medical (3) Vaginal pruritus: Code(s): N89.8 - Other specified noninflammatory disorders of vagina Category: Medical Plan Plan will be to check urinalysis continue VESIcare. Follow-up in one year or sooner as needed Orders: Orders UA w Microscopic Today R30.0 - Dysuria Patient Instructions: The patient had an opportunity to ask questions regarding treatment plan. The patient expressed understanding and agreement with the above treatment plan. The patient is aware they should contact our office by phone for worsening of their current condition or the appearance of new symptoms. Compliance is encouraged with any medications and followup testing that is ordered. It is a privilege to be allowed the opportunity to participate in the urologic care of your patient. If you have any questions or concerns regarding treatment for the above conditions please do not hesitate to contact me. The office telephone contact is [phone]. This note is constructed in part using voice recognition software. While every effort has been made to ensure accuracy hand filer balance wheel errors may have been included. Yours sincerely, Lasha Chu MD Coding Level of Care Code Est Pt Level 4 (41544) Diagnoses OAB (overactive bladder) N32.81 Dysuria R30.0 Vaginal pruritus N89.8 CPT Codes Post Residual Void - PVR CPT Code: 61172-Tgci Void Residual by ultrasound ([id number])
== END 2024-01-22 14:14 | disposition home or self-care (01) ==
LOC: HO.HUSH 12:38
PROVIDERS: PCP Internal Medicine; Visit Provider Urology
DX: N32.81 Overactive bladder (principal); R30.0 Dysuria; N89.8 Other specified noninflammatory disorders of vagina
CPT/HCPCS: 99214

== ENCOUNTER → 2024-01-22 12:37 | Outpatient (BNVA) | payer MEDICARE, MEDICAID, SELFPAY | PROVIDERS: PCP Internal Medicine; Visit Provider Urology | DX: N32.81 Overactive bladder (principal); R30.0 Dysuria; N89.8 Other specified noninflammatory disorders of vagina | CPT/HCPCS: 51798; 99212 ==

== ENCOUNTER 2024-04-08 08:10 | Outpatient (REF) | payer MEDICARE, MEDICAID, SELFPAY ==
[2024-04-08 09:54] LABS: MANUAL DIFF FLAG NO
[2024-04-08 10:28] LABS: Basophils Percent Auto 0.4 % (0-2); Eosinophils Absolute Auto 0.3 X10*3/uL (0.0-0.4); Eosinophils Percent Auto 2.6 % (0-4); Hematocrit 45.2 % (37.0-47.0); Hemoglobin 14.2 g/dl (12.0-16.0); Imm Gran Abs Auto 0.07 X10*3/uL (0.00-0.03); Imm Gran Pct Auto 0.6 % (0.0-0.4); Lymphocytes Absolute Auto 3.1 X10*3/uL (1.2-4.9); Lymphocytes Percent Auto 27.7 % (20-40); Mean Corpuscular HGB Conc 31.4 g/dl (31.0-35.0); Mean Corpuscular Hemoglobin 29.5 pg (27.0-33.0); Mean Platelet Volume 11.7 fL (9.4-12.3); Monocytes Absolute Auto 0.8 X10*3/uL (0.1-1.2); Monocytes Percent Auto 7.3 % (2-11); Neutrophils Absolute Auto 6.8 x10*3/uL (2.0-8.3); Neutrophils Percent Auto 61.4 % (45-73); Platelet Count 293 X10*3/uL (160-400); Red Blood Count 4.81 X10*6/uL (4.20-5.50); Red Cell Distribution Width 14.5 % (11.0-16.0); White Blood Count 11.1 X10*3/uL (4.8-10.8)
[2024-04-08 10:32] LABS: Estimated Average Glucose 183 mg/dL; Hemoglobin A1C 238.6928 umol/L; Total Hemoglobin (HGBA1C) 3735.2705 umol/L
[2024-04-08 11:05] LABS: Alanine Aminotransferase 49 U/L (0-31); Albumin Level 4.4 g/dL (3.5-5.0); Alkaline Phosphatase 121 U/L (39-117); Anion Gap 13 (12-20); Aspartate Amino Transferase 32 U/L (5-31); Bilirubin Total 0.5 mg/dL (0.0-1.0); Blood Urea Nitrogen 19 mg/dL (9-16); Calcium 9.9 mg/dL (8.4-10.2); Carbon Dioxide 30 mmol/L (22-29); Chloride 106 mmol/L (96-108); Cholesterol 164 mg/dL (<200); Estimated Glomerular Filt Rate 59; Glucose Fasting 122 mg/dL (60-99); HDL Cholesterol 44 mg/dL (>40); LDL Cholesterol Calculated 67 mg/dL (<100); Potassium 5.2 mmol/L (3.3-5.1); Sodium 144 mmol/L (135-145); TSH reflex Free T4 3.71 uIU/mL (0.32-4.0); Triglycerides 268 mg/dL (<150); Vitamin D 25-OH Total 55.3 ng/mL (>30)
[2024-04-08 11:25] LABS: Folate 11.2 ng/mL (> or = 4.0); Vitamin B12 395 pg/mL (200-900)
== END 2024-04-08 08:11 | disposition home or self-care (01) ==
LOC: HO.LAB 08:10
PROVIDERS: Absent Provider Internal Medicine; PCP Internal Medicine
DX: J44.1 Chronic obstructive pulmonary disease with (acute) exacerbation (principal); R06.09 Other forms of dyspnea; R05.3 Chronic cough; R09.82 Postnasal drip; E11.9 Type 2 diabetes mellitus without complications; D64.9 Anemia, unspecified; E78.00 Pure hypercholesterolemia, unspecified; E53.8 Deficiency of other specified B group vitamins; E55.9 Vitamin D deficiency, unspecified
CPT/HCPCS: 36415; 80053; 80061; 82306; 82607; 82746; 83036; 84443; 85025; 96127; 99212

== ENCOUNTER 2024-04-08 08:10 | Outpatient (AMB) | payer MEDICARE, MEDICAID, SELFPAY ==
[2024-04-08 08:16] VITALS: BP 114/86; PULSE 99; TEMP 36.6; O2SAT 99; BMI 29.7
--- NOTE | 2024-04-08 08:16 | A.OFFPC_ITS ---
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 Accompanied by: Self / Same As Patient Allergies codeine [CODEINE] Adverse Reaction (Intermediate, Verified 04/08/24 08:35) Vomiting Medication List - Last Reconciled 04/08/24 by ASHLEY Rivera albuterol sulfate 90 mcg/actuation (Ventolin HFA) 2 puffs inhalation Q6H PRN 30 days amitriptyline 25 mg PO BEDTIME 90 days atorvastatin 80 mg PO DAILY blood sugar diagnostic As directed blood sugar diagnostic (FreeStyle Lite Strips) As directed once per day bupropion HCl XL 300 mg PO QAM 90 days [DIABETIC SHOES As directed] dulaglutide (Trulicity) 0.75 mg (0.5 mL) subcut QWEEK ergocalciferol (vitamin D2) 1,250 mcg PO QWEEK 3 months escitalopram oxalate 20 mg PO DAILY 90 days lancets (Comfort EZ Lancets) As directed once per day loratadine (Allergy Relief (loratadine)) 10 mg PO DAILY metformin 500 mg PO BID montelukast 10 mg PO BEDTIME 90 days omeprazole 20 mg PO DAILY 90 days solifenacin 10 mg PO DAILY 30 days Trelegy Ellipta 200-62.5-25 mcg (whkggwmmvss-ydnhrofyy-burpkdqy) 1 inh inhalation DAILY 30 days NS Tobacco use date assessed: 04/08/24 Dental Screening Dental Screen Date: 04/08/24 Did you have a dental visit in the last 12 months?: Yes Did you have a dental problem in the last 6 months where you did not have access to dental care?: No Was dental information given to patient?: Patient has dentist HPI COPD exacerbation HPI Details The patient is a 58-year-old female with significant past medical history of COPD, paroxysmal nocturnal dyspnea, dyspnea on exertion, daytime somnolence, GERD, overactive bladder, type 2 diabetes, hyperlipidemia and obesity The patient is following up today for post urgent care visit for COPD exacerbation Reports that she went to urgent care about month ago She was placed on antibiotics and steroids but her cough persisted cough: on and off hx copd mild dyspnea with exertion today no sore throat no sinus pressure denies fevers reports that she was given abt/steriods in the urgent care in [place]-about a month ago sx resolved for a while cough is worse at night lung clear to auscultation questioning pnd will give nebulizer tx in office. reorder loratadine and prescribed the patiient flonase She denies chest pain, heart palpitation [facility] Medical History Overweight (BMI 25.0-29.9) Urinary incontinence Vitamin D deficiency GERD without esophagitis Blister (nonthermal), right foot, initial encounter HPV in female Urge and stress incontinence DM2 (diabetes mellitus, type 2) Hyperlipidemia LDL goal <100 Obesity (BMI 30-39.9) Depression Anxiety Alcohol abuse Obstructive sleep apnea Allergic rhinitis Migraine COPD (chronic obstructive pulmonary disease) Benign essential hypertension Pure hypercholesterolemia Diabetes mellitus Poor historian Chronic bronchitis Surgical History History of colonoscopy History of removal of cyst Family History Father CVD (cardiovascular disease) Mother Emphysema lung Cervical cancer Diabetes Brother Diabetes Myocardial infarction Sister Diabetes Stroke Other Mental health disorder Social History Household Members: None Household Members Other:: [employer] Housing: Apartment Alcohol intake: current Alcohol intake frequency: holidays/special occasions only Patient Tobacco Use Status: Never used Tobacco e-Cigarette/Vaping Use: Never Used Second Hand Smoke Exposure: Yes service: No Current occupational status: disabled Gender identity: Female Cognitive needs: No Hearing needs: Yes Vision needs: Yes Female Reproductive History Menstrual Age of Menarche: 13 Questionnaire PHQ-9 Over the last 2 weeks, how often have you been bothered by any of the following problems? 1. Little interest or pleasure in doing things: not at all 2. Feeling down, depressed, or hopeless: not at all 3. Trouble falling or staying asleep, or sleeping too much: not at all 4. Feeling tired or having little energy: not at all 5. Poor appetite or overeating: not at all 6. Feeling bad about yourself - or that you are a failure or have let yourself or your family down: not at all 7. Trouble concentrating on things, such as reading the newspaper or watching television: not at all 8. Moving or speaking so slowly that other people could have noticed. Or the opposite - being so fidgety or restless that you have been moving around a lot more than usual: not at all 9. Thoughts that you would be better off or of hurting yourself in some way: not at all Total score: 0 Source: Developed by Drs. Wade Cardenas, Tomasa Stafford, Javier Chan and colleagues, with an educational keiko from [employer]. Thrive Questionnaire Date Thrive assessed: 04/08/24 I am a: Patient What is your living situation today?: I have a steady place to live Within the past 12 months, did the food you bought not last and you didn't have the money to get more?: Never true Within the past 12 months, did you worry whether your food would run out before you got money to buy more?: Never true Do you have trouble paying for medicines?: No Do you have trouble getting transportation to medical appointments?: No Do you have trouble paying your heating and electricity bill?: No Do you have trouble taking care of your child, family member or friend?: No Do you have trouble with day-to-day activities such as bathing, preparing meals, shopping, managing finances, etc.?: No Are you currently unemployed and looking for a job?: No Are you interested in more education?: No Please select the resources that you would like help with: None Currently or been in a relationship where the following occur: No concerns reported THRIVE Score: 0 AUDIT C Alcohol Use Questionnaire (AUDIT-C) 1. How often do you have a drink containing alcohol?: Monthly or less 2. How many drinks containing alcohol do you have on a typical day when you are drinking?: 1 or 2 3. How often do you have six or more drinks on one occasion?: Never Total Score: 1 Score Reviewed/Action Taken: Yes DOLORES-7 AMB Questionnaire DOLORES-7 Date DOLORES - 7 assessed: 01/23/25 Feeling nervous, anxious, or on edge: 0 = Not at all Not being able to stop or control worryin = Not at all Worrying too much about different things: 0 = Not at all Trouble relaxin = Not at all Being so restless that it is hard to sit still: 0 = Not at all Becoming easily annoyed or irritable: 0 = Not at all Feeling afraid as if something awful might happen: 0 = Not at all Total DOLORES-7 score (0-4 normal; 5-9 mild; 10-14 moderate; 15-21 severe): 0 Source: Developed by Drs. Wade Cradenas, Tomasa Stafford, Javier Chan and colleagues, with an educational keiko from [employer]. DOLORES-7 Assessment Billing DOLORES-7 Assessment Tool: DOLORES-7 Assessment 01565 Review of Systems Const Details: Denies chills, Denies fatigue, Denies fever(s), Denies headache(s) and Denies weakness HEENT Denies change in vision, Denies dizziness, hx of migraines (s), Denies hearing loss, + nasal congestion, Denies sinus pain, Denies sinus pressure and Denies sore throat Card Denies chest pain, Denies lightheadedness, + mild dyspnea with exertion and Denies other (palpitations) Resp + nonproductive cough, +mild dyspnea on exertion and Denies wheezing GI Denies abdominal pain, Denies melena, Denies hematochezia, Denies change in bowel habits,+ dyspepsia with exertion food and Denies nausea Denies hematuria and Denies dysuria Musc Denies abnormal gait, Denies myalgias, Denies arthralgias, Denies numbness and Denies tingling Psych hx of anxiety, hx of depression and Denies memory loss Physical exam (Primary Care) Vital Signs: Last Vital Signs Temp 97.9 F 04/08/24 08:16 Pulse 99 04/08/24 08:16 BP 114/86 04/08/24 08:16 Pulse Ox 99 04/08/24 08:16 Oxygen Delivery Method Room Air 04/08/24 08:16 BMI result Body Mass Index 29.7 Tobacco/Smoking Status: Tobacco use Status Tobacco use date assessed 04/08/24 04/08/24 08:20 Patient Tobacco Use Status Never used Tobacco 04/08/24 08:20 e-Cigarette/Vaping Use Never Used 04/08/24 08:20 PHQ-9: PHQ-9 Score PHQ-9: Total score 0 04/08/24 08:20 Thrive Assessment: Date of Thrive Assessment Date Thrive assessed 04/08/24 04/08/24 08:20 Currently or been in a relationship where the following occur: No concerns reported Const Other: General: no acute distress, well developed, alert and awake Nutritional Appearance: well nourished Orientation/consciousness: patient oriented x3 HENMT Head: Yes normocephalic and Yes atraumatic Ears: hearing grossly normal bilaterally and TM's normal bilaterally General nose exam: Normal external nose present and +bilateral nasal passage with dried up exudate, erythematous Mouth: Normal oral and palatal mucosa present and moist mucous membranes Teeth and gingiva: dentition normal Throat: Yes oropharynx normal Eyes Pupils: Equal, round and reactive pupils present and Pupil accommodation reflex normal EOM: EOMs intact bilaterally Neck Neck: Yes normal visual inspection, Yes no lymphadenopathy and Yes trachea midline Thyroid: Thyroid normal Carotids: no bruits Lymphatic: no lymphadenopathy noted Chest Chest palpation & inspection: normal inspection of the chest Resp Effort & Inspection: normal respiratory effort Auscultation: clear to auscultation bilaterally Cardio Rate: regular rate Rhythm: regular rhythm Heart sounds: S1 normal heart sound present, S2 normal heart sound present, no gallops, no murmurs and no rubs GI Palpation (GI): Abdomen rounded, soft and nontender on palpation Auscultation: normal bowel sounds General: Yes no CVA tenderness Back/Spine/Pelvis Back: no CVA tenderness Skin General: warm and dry. Normal skin color. Normal skin turgor Lesions: no lesions Nails: normal Neuro General: patient oriented x3, gait normal Cranial nerves: Yes Equal, round and reactive pupils present Cognition (Neuro): normal cognition Gait exam (Neuro): Normal gait present Extrem General: Yes normal to inspection, No edema and No calf tenderness Psych Appearance: grossly normal Affect: normal affect Attitude: cooperative Thought process: Normal thought process present Coding Level of Care Code Est Pt Level 4 (12758) Diagnoses COPD exacerbation J44.1 Dyspnea on exertion R06.09 Chronic cough R05.3 Cough type: chronic Post-nasal drip R09.82 Type 2 diabetes mellitus without complication, without long-term current use of insulin E11.9 Diabetes mellitus type: type 2 Diabetes mellitus mcc insulin use: without mcc use Diabetes mellitus complication status: without complication Additional Codes DOLORES-7 Assessment Billing - DOLORES-7 Assessment Tool: DOLORES-7 Assessment 19099 ([id number]) Time Spent (min) 36 Assessment & Plan Assessment & Plan (1) COPD exacerbation: Code(s): J44.1 - Chronic obstructive pulmonary disease with (acute) exacerbation Category: Medical Plan: Post COPD exacerbation-was treated in urgent care with antibiotics and steroids Positive effects except her lingering cough and ongoing dyspnea on exertion Patient was given a nebulizer treatment in office with improvement Continue Trelegy Ellipta 200-62.5-25 mcg, albuterol sulfate 90 mcg/actuation (ventolin HFA) 2 Puffs Q6H PRN Encouraged the patient and staff member to make an appt with Pulmonology (2) Dyspnea on exertion: Code(s): R06.09 - Other forms of dyspnea Category: Medical Plan: Nebulizer tx given in the office with positive effect (3) Cough: Code(s): R05 - Cough Category: Medical Qualifiers: Cough type: chronic Qualified Code(s): R05.3 - Chronic cough Plan: The has been taking cough syrup otc. suspect the patient is cough is related to pnd Flonase nose spray ordered. 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 insulin use: without mcc use Diabetes mellitus complication status: without complication Qualified Code(s): E11.9 - Type 2 diabetes mellitus without complications Plan: reports blood suga this mornig was 174 reinforced a diet low in sugar/carbohydrates Continue Trulicity 0.75 mg s.c qwk, metformin 500mg BID Monitor blood sugar regularly Plan The patient is to follow up if symptoms are not relieving or worsening Orders: Orders AMB Nebulizer Treatment Today R06.00 - Dyspnea, unspecified Medications: New fluticasone propionate 50 mcg/actuation administer into each nostril 1 spray intranasal BID 16 grams 0RF ipratropium-albuterol 0.5 mg-3 mg(2.5 mg base)/3 mL 3 mL inhalation ONCE 3 mL 0RF R06.00 - Dyspnea, unspecified Refilled blood sugar diagnostic (FreeStyle Lite Strips) As directed once per day 100 ea 1RF E11.9 - Type 2 diabetes mellitus without complications loratadine (Allergy Relief (loratadine)) 10 mg PO DAILY 90 tabs 1RF dulaglutide (Trulicity) 0.75 mg (0.5 mL) subcut QWEEK 2 mL 2RF
--- OUTSIDE RECORDS SUMMARY | 2024-04-08 08:23 | XMS_ITS | Data Portability ---
Author Organization [place] [facility] Address [address] [place] [address] Care Team Providers Care Remote Sensing Technologist Name Role Phone CHARLES LUGO Primary Care Provider [phone] Assessment Encounter Date Assessment Date Assessment LastModified by Organization Details LastModified Time 07/26/2020 07/26/2020 Time On Scene with Patient: 00:41:27 [id number] Not available 07/26/2020 16:49:08 Plan of Treatment Reminders Order Date Submit Date Provider Last Modified By Organization Details Last Modified Time Details Appointments None recorded. Lab None recorded. Referral None recorded. Procedures None recorded. Surgeries None recorded. Imaging None recorded. Medication Orders Zofran ODT 4 mg disintegra ting tablet 2020 021 Not available 11:28:19 Zofran 4 mg tablet 2020 021 [id number], [address] [place], [address], 16:42:56 Patient TargetsNo targets recorded. Patient InstructionsNo instructions recorded. Reason for Referral None Reported. Medical Equipment None Reported. Allergies Allergen ID Allergen Name Allergen Category Reaction Reaction Severity Criticality Documentation Date Start Date Code Code System Note Provider Name and Address Organization Details Recorded Time [id number] codeine medicatio n Not available Not available Not available 07/26/2020 2670 RxNorm Sharron Smith NP [address] [place], [address], [place] [facility] 16:14:39 Medications Name Sig Start Date Stop Date Status Note LastModified by Organization Details LastModified Time metformin 500 mg tablet TAKE 1 TABLET BY MOUTH TWICE A DAY WITH MEALS active Not Available Not Available No t Available atorvastati n 80 mg tablet TAKE 1 TABLET BY MOUTH EVERY DAY active Not Available Not Available No t Available azithromyci n 250 mg tablet TAKE 2 TABLETS BY MOUTH TODAY, THEN TAKE 1 TABLET DAILY FOR 4 DAYS 07/26 completed Not Available Not Available Not Available ondansetron HCl 4 mg tablet Take 1 tablet 3 times a day by oral route as directed for 5 days. active Not Available Not Available No t Available prednisone 20 mg tablet TAKE 2 TABLETS BY MOUTH EVERY DAY 07/26 completed Not Available Not Available Not Available tramadol 50 mg tablet TAKE 1 TABLET BY MOUTH 2 TO 3 TIMES DAILY NEEDED FOR PAIN FOR 7 DAYS active Not Available Not Available No t Available amitriptyli ne 25 mg tablet TAKE 1 TABLET BY MOUTH EVERYDAY AT BEDTIME active Not Available Not Available No t Available Zofran ODT 4 mg disintegrat ing tablet one ODT administe red on scene. Time administe red: 4:36 2020 active Not Available Not Available Not Avai lable benzonatate 100 mg capsule TAKE 1 CAPSULE BY MOUTH 3 TIMES A DAY NEEDED FOR COUGH 07/26 completed Not Available Not Available Not Available montelukast 10 mg tablet active Not Available Not Available Not Available lisinopril 5 mg tablet TAKE 1 TABLET BY MOUTH EVERY DAY active Not Available Not Available No t Available lorazepam 1 mg tablet active Not Available Not Available No t Available escitalopra m 20 mg tablet TAKE 1 TABLET BY MOUTH EVERY DAY active Not Available Not Available No t Available bupropion HCl XL 300 mg 24 hr tablet, extended release TAKE 1 TABLET BY MOUTH EVERY DAY IN THE MORNING active Not Available Not Available No t Available solifenacin 10 mg tablet TAKE 1 TABLET BY MOUTH EVERY DAY active Not Available Not Available No t Available albuterol active Not Available Not Beth ilable Not Available FreeStyle Lite Strips USE TO TEST DAILY active Not Available Not Available No t Available Trulicity 0.75 mg/0.5 mL subcutaneou s pen injector INJECT CONTENTS OF 1 SYRINGE ONCE A WEEK active Not Available Not Available No t Available Vitals Date Recorded Body temperature Heart rate Respiratory rate Oxygen saturation Oxygen saturation in Arterial blood by Pulse oximetry Systolic blood pressure Diastolic blood pressure Provider Name and Address Organization Details Last Updated DateTime 97.8 [degF] 94 /min 18 /min 98 % 98 % 124 mm[Hg] 88 mm[Hg] Not Available [facility] 16:20:18 Social History Question Answer Notes LastModified by Organizat ion Details LastModified Time Tobacco Smoking Status Never Smoker Sharron Smith, JUDY [address], [place], [address], [place] [facility] 07/26/2020 16:15:41 Do You Have An Advance Directive? No Information not available 07/26/2020 What Is Your Code Status? Full Code Information not available 07/26/2020 Within The Past 12 Months, Has It Happened That The Food You Bought Just Didn't Last And You Didn't Have Money To Get More. No Information not available 07/26/2020 Within The Past 12 Months, Have You Worried That Your Food Would Run Out Before You Got Money To Buy More. No Information not available 07/26/2020 Fall Risk: Do You Feel Unsteady When Standing Or Walking? No Information not available 07/26/2020 We Know That How And When People Interact With Friends And Family Can Be Very Different From Person To Person. How Often Do You Have The Opportunity To See Or Talk To People That You Care About And Feel Close To? (Ex: Talking To Friends On The Phone Or Visiting Friends Or Family Or Going To Methodist Or Club Meetings) 3 Or 4 Times Per Week Information not available 07/26/2020 Excessive Alcohol Or Drug Use No Information not available 07/26/2020 We Know From Many Of Our Patients That Covering All Of Their Costs Can Be Difficult At Times. This Can Cause Stress And Impact Health. In The Past Year, Have You Been Unable To Get Any Of The Following When It Was Really Needed? No Information not available 07/26/2020 What Is Your Housing Situation Today? I Have Housing Information not available 07/26/2020 Would You Like Help Connecting To Resources? None Information not available 07/26/2020 Sex: Unknown Functional Status None recorded. Mental Status None recorded. Family History Relationship Description Onset Age of this Age Resolved Age Notes LastModified by Organization Details LastModified Time Mother Diabetes mellitus Not available 2020 16:15:35 Medical History Condition Response Coronary Artery Disease N COPD N Depression Y Cancer N Stroke N High Cholesterol Y Kidney Disease N Diabetes Y Asthma N Pulmonary Embolism N Hypertension Y Gynecological HistoryNo gynecological history recorded. Obstetrics History GPAL:G 0 P 0 0 0 0 Past Encounters Encounter ID Performer Location Encounter Start Date Encounter Closed Date Diagnosis/Indication Diagnosis SNOMED-CT Code Diagnosis ICD10 Code Diagnosis Note [id number] Sharron Smith NP [facility] [address] [place] [address] 07/26/2020 16:07:48 07/28/2020 10:57:03 Nausea and vomiting [id number] R11.2 Overview/H istory: Patient is a 54 year old alert female who is a poor historian. Patient presents with flu symptoms to include cough, nausea, vomiting, diarrhea and a matilde concern of having Parkinson' s disease. I am unable to visualize patient previous primary care history in [facility] however, inpatient admission records disclose + Covid result 03/11/2020 where patient was [place] [facility] [place] [facility] [place] 03[place]2020 and was discharged safely to inpatient rehab for recovery. Patient has an open box of Life cereal, Sweet tea with sugar additive and peanut butter crackers open on coffee table. Exam: Patient afebrile 97.8. HR tachcardic , regular 94 upon arrival. 78 with auscultati on during physical exam. ENT exam normal findings. Moist mucous membranes, no JVD distention . LSCTA bilaterall y, no work of breathing, speaking in full sentences. Abdomen soft, rounded, non tender + bowel sounds x 4 quadrants. No rebound tenderness . No CVA tenderness , no suprapubic tenderness . Benign neuro examinatio n. Skin turgor wnl. DDx considered , but not limited to: Viral illness considered , likely given exam findings Gastrointe ritis considered , likely given sudden onset Food poisoning considered Covid considered , unlikely, patient previously diagnosed flu considered , unlikely, patient immunized Work up/Results : Exam Plan/Discu ssion: 1. Zofran 4 mg given on scene for nausea, RX for Zofran 4 mg 3 x daily x 5 days 2. Patient instructed to monitor glucose levels closely with accu-check , hydrate with electrolyt e solution. Take Zofran, wait 1/2 hour and drink plenty of fluids, eat frequent small meals. 3. Discussed acute s/s suck as fever, respirator y distress, inability to eat/drink and stable glucose. Patient is able to reiterate all discussed. 4. Patient will follow with PCP regarding concerns of Parkinson' s Disease - discussed stable neurologic al exam findings this visit. [facility] rec completed Proper Personal Protective Equipment (PPE), including {{gloves, eye protection , masks, and gowns, shoe covers sara ves, eye protection and masks glov es, eye protection gloves, eye protection , N95 mask, gown, and shoe covers* castanon rgical mask with face-shiel d, gloves, gown and shoe covers marquita gical mask with face-shiel d, gloves}} were donned and doffed appropriat mark and all equipment cleaned using approved technique with germicidal disposable wipes prior to and after care of this patient according to [facility]' infection prevention protocols. In order to obtain further informatio n and compare any laboratory results/va lues, I have accessed {{old patient records* p atient records on the [facility] r eviewed records with the PCP}}. This informatio n was pertinent in my medical decision making today. Health Concerns Section Related Observation LastModified by Organization Detai ls LastModified Time None Recorded Concern Status LastModified by Organization Details LastModified Time None Recorded Advance Directives Directive N: Payers Encounter Date Sequence Insurance Name Policy Number Policy Knowles Covered Member ID Knowles Member ID Guarantor Name 07/26/2020 1 [place]IC[place] B[place]: [employer] Yasmin Gordon [id number] Yasmin Gordon 07/26/2020 2 [place] [facility] Yasmin Gordon [id number] Yasmin Gordon Notes Date Note Type Note Provider Name and Address Organization Details Recorded Time 07/26/2020 text/html Patient is a 54 year old alert female who is new to and new to this provider. Patient Mental Health advocate requests evaluation of patient flu symptoms that started today. Patient symptoms include scratchy throat, stomach ache, diarrhea, shaking. Patient wants to be assessed for Parkinsons disease. She denies history of neurological disorder. Patient medical history is significant for depression, anxiety, diabetes, hyperlipidemia, HTN, obstructive sleep apnea, she is deaf and reads lips. Patient tested positive for Covid 03/11/2020. Sharron Smith NP [address] [place] [address] [place], [address], [place] [facility] 07/26/2020 18:07:52 OBGyn Episode No OBEpisode recorded.
== END 2024-04-08 10:23 | disposition home or self-care (01) ==
PROVIDERS: PCP Internal Medicine
DX: J44.1 Chronic obstructive pulmonary disease with (acute) exacerbation (principal); E11.9 Type 2 diabetes mellitus without complications; R06.09 Other forms of dyspnea; R05.3 Chronic cough; R09.82 Postnasal drip

== ENCOUNTER 2024-04-13 08:59 | Outpatient (REF) | payer MEDICARE, MEDICAID, SELFPAY ==
[2024-04-13 09:12] LABS: Appearance Urine Clear; Color Urine Yellow; Glucose Urine UA Negative (Negative); Leukocyte Esterase Urine Small (1+) (Negative); Nitrite Urine Negative (Negative); PH 5.5 (5.0-9.0); Specific Gravity - Urine 1.015 (1.005-1.025); UMIC TRIGGER UACC YES; Urine Blood Negative (Negative); Urine Ketones Negative (Negative); Urine Protein Negative (Neg-Trace)
[2024-04-13 09:20] LABS: Bacteria Urine None Seen (None Seen); Hyaline Casts Urine 0-2 /LPF (0-2); RBC Urine 0-2 /HPF (0-2); Squamous Epithelial Cell Urine 0-2 /HPF (0-2); UACC Culture Trigger YES
--- OUTSIDE RECORDS SUMMARY | 2024-04-13 09:22 | XMS_ITS | Encounter Summary ---
Author Organization [employer] Address [address] [facility] [address] [place] [address] Care Team Providers Care Operator Specialist Communications Name Role Phone Unavailable Primary Care Provider Unavailabl e Encounter Details Date Type Department Care Team (Latest Contact Info) Description 05/06/2019 Abstract C CONVERSIONS Dental, Provider, DDS Social History Tobacco Use Types Packs/Day Years Used Date Smoking Tobacco: Never Assessed Comments Unknown Sex and Gender Information Value Date Recorded Sex Assigned at Female 01/14/2022 10:23 AM EDT Legal Sex Female 10:23 AM EDT Gender Identity Female 01/10/2023 1:05 PM EDT Sexual Orientation Straight 01/10/2023 1: 05 PM EDT documented as of this encounter Plan of Treatment Not on file documented as of this encounter Visit Diagnoses Not on filedocumented in this encounter
--- OUTSIDE RECORDS SUMMARY | 2024-04-13 09:22 | XMS_ITS ---
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.9 - ICD-10-CM) ACTIVE 03/15/2020 ESSENTIAL (PRIMARY) HYPERTENSION (I10 - ICD-10-CM) ACT JR 03/15/2020 HYPERLIPIDEMIA, UNSPECIFIED (E78.5 - ICD-10-CM) ACTIVE 03/15/2020 BRONCHITIS, NOT SPECIFIED ACUTE OR CHRONIC (J40 - ICD-10-CM) ACTIVE 03/15/2020 PNEUMONIA IN DISEASES CLASSI FIED ELSEWHERE (J17 - ICD-10-CM) ACTIVE 03/15/2020 OBSTRUCTIVE SLEEP APNEA (TUNDE LT) (PEDIATRIC) (G47.33 - ICD-10-CM) ACTIVE 03/15/2020 ACUTE RESPIRATORY FAILURE WI TH HYPOXIA (J96.01 - ICD-10-CM) ACTIVE 03/15/2020 ACUTE KIDNEY FAILURE, UNSPECIFIED (N17.9 - ICD-10-CM) ACTIVE 03/15/2020 HYPOTENSION, UNSPECIFIED (I95.9 - ICD-10-CM) ACTIVE 03/15/2020 ANEMIA, UNSPECIFIED (D64.9 - ICD-10-CM) ACTIVE TREMOR, UNSPECIFIED (R25.1 - ICD-10-CM) ACTIVE DYSPHAGIA, OROPHARYNGEAL PHASE (R13.12 - ICD-10-CM) AC TIVE 03/15/2020 DIFFICULTY IN WALKING, NOT E LSEWHERE CLASSIFIED (R26.2 - ICD-10-CM) ACTIVE 03/15/2020 WEAKNESS (R53.1 - ICD-10-CM) ACTIVE 03/15/2020 OTHER MALAISE (R53.81 - ICD-10-CM) ACTIVE 2019 OTHER FATIGUE (R53.83 - ICD-10-CM) ACTIVE 2019 Encounters Encounter Performer Performer Role Encounter Diagnoses Location Date Discharge - Discharged to home or self care - Home - [facility] 0 06:15 pm EST - 1 11:29 am EST Immunizations Vaccine Date Influenza 11/24/2019 12:00 am EDT TB 2 Step Mantoux Skin Test 03/22/2020 1 0:00 am EST PCV13 (Pneumococcal Conjugate)Vaccine 12:00 am EST Social History
--- OUTSIDE RECORDS SUMMARY | 2024-04-13 09:22 | XMS_ITS | Encounter Summary ---
Author Organization [employer] Address [address] [facility] [address] [place] [address] Care Team Providers Care Manager Php Name Role Phone Unavailable Primary Care Provider Unavailabl e Reason for Visit * Reason Onset Date Comments rs no show appt 03/08/2024 Encounter Details Date Type Department Care Team (Late st Contact Info) Description 03/08/2024 Telephone [facility] [address] [place] [address] Jaziel Dominguez rs no show appt Social History Tobacco Use Types Packs/Day Years Used Date Smoking Tobacco: Never Smokeless Tobacco: Never Comments Unknown Sex and Gender Information Value Date Recorded Sex Assigned at Female 01/14/2022 10:23 AM EDT Legal Sex Female 10:23 AM EDT Gender Identity Female 01/10/2023 1:05 PM EDT Sexual Orientation Straight 01/10/2023 1: 05 PM EDT documented as of this encounter Miscellaneous Notes * Telephone Encounter - Mitzi Buenrostro - 03/08/2024 11:48 AM EST Patient called statedgardo that she as unable to make it to [facility] due to being sick and being on anantibiotic. Explained to patient that with no show visits, office will reach out to reschedule the no show visit. However there is a waiting period. Patient understood DR documented in this encounter Plan of Treatment Not on file documented as of this encounter Visit Diagnoses Not on filedocumented in this encounter
--- OUTSIDE RECORDS SUMMARY | 2024-04-13 09:22 | XMS_ITS | Clinical Summary ---
Author Organization [facility] [employer] Address [address] [facility] [address] [place] [address] Care Team Providers Care Auto Electrician Name Role Phone Unavailable Primary Care Provider Unavailabl e Allergies Active Allergy Reactions Criticality Noted Date Comments Cat Dander Medium 03/15/2020 Other Reaction(s): Allergy to pollen, Cutaneous reactions Codeine Unknown 08/07/2023 Gramineae Pollens Medium 03/15/2020 Other Reaction(s): Cutaneous reactions Medications amitriptyline (Elavil) 25 MG tablet Take 25 mg by mouth at bedtime. 12/21/19 23 Active atorvastatin (Lipitor) 80 MG tablet Take 80 mg by mouth in the morning. 12/28/19 23 Active escitalopram (Lexapro) 20 MG tablet Take 20 mg by mouth in the morning. 12/21/19 23 Active metFORMIN (Glucophage) 500 MG tablet Take 500 mg by mouth 2 times daily. 11/30/19 23 Active montelukast (Singulair) 10 MG tablet Take 10 mg by mouth at bedtime. 12/21/19 23 Active omeprazole (PriLOSEC) [address] capsule 01/23/20 23 Active solifenacin (VESIcare) 10 MG tablet Take 10 mg by mouth in the morning. 12/06/19 23 Active buPROPion XL (Wellbutrin XL) 300 MG 24 hr tablet Take 300 mg by mouth in the morning. 12/21/19 23 Active Trulicity 0.75 MG/0.5ML solution pen-injector INJECT ONE PEN SUBCUTANEOUSLY ONCE WEEKLY 12/18/19 23 Active Combivent Respimat 20-100 MCG/ACT inhaler INHALE 2 PUFFS BY MOUTH EVERY MORNING FOR 30 DAYS 09/13/19 23 Active Trelegy Ellipta 200-62.5-25 MCG/ACT aerosol powder Take 1 mg of elemental zinc by mouth Once per day. 07/30/19 24 Active lisinopril 5 MG tablet Take 1 tablet by mouth Once per day. Active LORazepam (Ativan) 1 MG tablet Active ondansetron ODT (Zofran-ODT) 4 MG disintegrating tablet one ODT administered on scene. Time administered: 4:36 07/28/19 21 Active mupirocin (Bactroban) 2 % ointment APPLY TOPICALLY 3 TIMES A DAY FOR NASAL SORE 01/30/20 23 Active Encounters Date Type Department Care Team Description 03/08/2024 Telephone [facility] [address] [place] [address] Jaziel Dominguez no show appt from Last 3 Months Social History Tobacco Use Types Packs/Day Years Used Date Smoking Tobacco: Never Smokeless Tobacco: Never Tobacco Cessation:Counseling Given: Not Answered Comments Unknown Sex and Gender Information Value Date Recorded Sex Assigned at Female 01/14/2022 10:23 AM EDT Legal Sex Female 10:23 AM EDT Gender Identity Female 01/10/2023 1:05 PM EDT Sexual Orientation Straight 01/10/2023 1: 05 PM EDT Last Filed Vital Signs Vital Sign Reading Time Taken Comments Blood Pressure 112/62 08/07/2023 9:57 AM EDT Pulse 65 08/07/2023 9:57 AM EDT Temperature - - Respiratory Rate - - Oxygen Saturation - - Inhaled Oxygen Concentration - - Weight - - Height - - Body Mass Index - - Plan of Treatment Health Maintenance Due Date Last Done Comments CT Colonography 1967 Colonoscopy 1967 Colorectal Cancer Screening 1967 Depression Screening 1967 FIT DNA/Cologuard 1967 FIT 1967 FOBT 1967 HIV Screening 1967 Lipid Panel 1967 SDOH Screening 1967 Sigmoidoscopy 1967 Alcohol/Substance Use Screening 1979 Hepatitis C Screening 10/25/1985 Hepatitis B Vaccines (1 of 3 - 19+ 3-dose series) 10/25/1986 Pap Smear 10/25/1988 Cervical Cancer Screening 10/25/1997 HPV/Cotest 10/25/1997 Mammogram 2007 Dental X-Ray: Full Mouth 11/02/2013 11/01/2010 Zoster Vaccines (1 of 2) 10/25/2017 Dental X-Ray: Bitewings 01/25/2024 01/24/20, 09/05/2017, 07/08/2016, Additional history exists Dental Oral Exam 02/08/2024 08/07/2023, 11/2022, 05/06/2019, Additional history exists Dental Prophylaxis 02/08/2024 08/07/2023, 1 03/25/2022, 05/06/2019, Additional history exists Tobacco Screening 09/03/2024 09/04/2023 DTaP/Tdap/Td Vaccines (2 - Td or Tdap) 03/15/2026 03/15/2016 RSV Patients and Patients Aged 60 years or older (1 - 1-dose 75+ series) 10/25/2042 Pneumococcal Vaccine: Pediatrics (0 to 5 Years) and At-Risk Patients (6 to 64 Years) Aged Out 04/26/2019, 04/26/2019 No longer eligibl e based on patient's age to complete this topic COVID-19 Vaccine Completed 12/20/2023, , 06/30/2020, Additional history exists Influenza Vaccine Completed 12/20/2023, , 01/05/2022, Additional history exists HIB Vaccines Aged Out No longer eligi ble based on patient's age to complete this topic HPV Vaccines Aged Out No longer eligi ble based on patient's age to complete this topic Hepatitis A Vaccines Aged Out No long er eligible based on patient's age to complete this topic IPV Vaccines Aged Out No longer eligi ble based on patient's age to complete this topic Meningococcal Vaccine Aged Out No gary mira eligible based on patient's age to complete this topic RSV under 20 months Aged Out No longe r eligible based on patient's age to complete this topic Rotavirus Vaccines Aged Out No longer eligible based on patient's age to complete this topic Procedures Procedure Name Priority Date/Time Associated Diagnosis Comments PROPHYLAXIS - ADULT Routine 08/07/2023 1 0:00 AM EDT PERIODIC ORAL EVALUATION - ESTABLISHED PATIENT Routine 08/07/2023 10:00 AM EDT BITEWINGS - 4 RADIOGRAPHIC IMAGES Routine 01/23/2023 8:00 AM EST DIAGNOSTIC - DIAGNOSTIC IMAGING - INTRAORAL - COMPREHENSIVE SERIES OF RADIOGRAPHIC IMAGES Routine 11/01/2010 12:00 AM EDT from Last 3 Months or Most Recently Relevant to Health Maintenance [facility]
--- OUTSIDE RECORDS SUMMARY | 2024-04-13 09:22 | XMS_ITS | Data Portability ---
Author Organization [place] [facility], [facility] Address [address] [place] [address] Care Team Providers Care Instructional Systems Design Consultant Name Role Phone CHARLES LUGO Primary Care Provider Assessment Encounter Date Assessment Date Assessment LastModified [...] tablet 2020 021 [id number], [address] [place], [address], 16:42:56 Patient TargetsNo targets recorded. Patient InstructionsNo instructions recorded. Reason for Referral None Reported. Medical Equipment None Reported. Allergies Allergen ID Allergen Name Allergen Category Reaction Reaction Severity Criticality Documentation Date Start Date Code Code System Note Provider Name and Address Organization Details Recorded Time [id number] codeine medicatio n Not available Not available Not available 07/26/2020 2670 [facility] Sharron Smith NP [address] [place], [address], [place] [facility] 16:14:39 Medications [...] Smoker Sharron Smith, JUDY [address], [place], [address], [place] [facility] 07/26/2020 16:15:41 Do You [...] Visiting Friends Or Family Or Going To Oriental [employer] Or Club Meetings) 3 Or 4 Times [...] Artery Disease N COPD N Depression Y Diabetes Y Cancer N Stroke N Asthma N High Cholesterol Y Pulmonary Embolism N Hypertension Y Kidney Disease N Gynecological HistoryNo gynecological history recorded. Obstetrics History GPAL:G 0 P 0 0 0 0 Past Encounters Encounter ID Performer Location Encounter Start Date Encounter Closed Date Diagnosis/Indication Diagnosis SNOMED-CT Code Diagnosis ICD10 Code Diagnosis Note [id number] Sharron Smith NP [facility] [address] [facility] [place] [address] 07/26/2020 16:07:48 07/28/2020 10:57:03 Nausea and vomiting [id number] R11.2 Overview/H istory: Patient is a 54 year old alert female who is a poor historian. Patient presents with flu symptoms to include cough, nausea, vomiting, diarrhea and a matilde concern of having Parkinson' s disease. I am unable to visualize patient previous primary care history in [facility] however, inpatient admission records disclose + Covid result 03/11/2020 where patient was admitted inpatient to [facility] until 03/15/2020 and was discharged safely to [...] stable neurologic al exam findings this visit. [facility] rec completed Proper Personal Protective Equipment (PPE), [...] after care of this patient according to [facility] infection prevention protocols. In order to obtain further informatio n and compare any laboratory results/va lues, I have accessed {{old patient records* p atient records on the [employer] r eviewed records with [...] ID Guarantor Name 07/26/2020 1 [place]IC[place] B[place]: [employer] Yasmin Gordon [id number] Yasmin Gordon 07/26/2020 2 [place] [facility] Yasmin Gordon [id number] Yasmin Gordon Notes Date Note Type Note [...] positive for Covid 03/11/2020. Sharron Smith NP [address] [place] [address] [place], [address], [place] [facility] 07/26/2020 18:07:52 OBGyn Episode No OBEpisode recorded.
[2024-04-13 10:02] LABS: Creatinine Urine 52.16 mg/dL; Microalbumin Urine < 5.0 mg/L
== END 2024-04-13 09:00 | disposition home or self-care (01) ==
LOC: HO.LNP 08:59
PROVIDERS: Visit Provider Internal Medicine
DX: R30.0 Dysuria (principal); E11.9 Type 2 diabetes mellitus without complications
CPT/HCPCS: 81001; 82043; 82570; 87086

== ENCOUNTER 2024-04-15 09:51 | Outpatient (AMB) | payer MEDICARE, MEDICAID, SELFPAY ==
[2024-04-15 11:15] VITALS: BP 122/86; PULSE 103; O2SAT 96; BMI 30.8
--- NOTE | 2024-04-15 11:15 | A.OFFPC_ITS ---
Vital Signs 04/15/24 11:15 Height 4 ft 11 in Weight 152 lb 6 oz BMI 30.8 BP 122/86 Blood Pressure Location Lt brachial Position Sitting Pulse 103 H Pulse Source Pulse Oximeter Pulse Oximetry (%) 96 Oxygen Delivery Method Room Air Intake Visit Reasons: 3mth f/u Rn Bariatric Required: No Accompanied by: Self / Same As Patient Allergies codeine [CODEINE] Adverse Reaction (Intermediate, Verified 04/15/24 11:47) Vomiting Medication List - Last Reconciled 04/15/24 by Rogerio Waddell MD albuterol sulfate 90 mcg/actuation (Ventolin HFA) 2 puffs inhalation Q6H PRN 30 days amitriptyline 25 mg PO BEDTIME 90 days atorvastatin 80 mg PO DAILY blood sugar diagnostic As directed blood sugar diagnostic (FreeStyle Lite Strips) As directed once per day bupropion HCl XL 300 mg PO QAM 90 days [DIABETIC SHOES As directed] dulaglutide (Trulicity) 0.75 mg (0.5 mL) subcut QWEEK ergocalciferol (vitamin D2) 1,250 mcg PO QWEEK 3 months escitalopram oxalate 20 mg PO DAILY 90 days fluticasone propionate 50 mcg/actuation 1 spray intranasal BID lancets (Comfort EZ Lancets) As directed once per day loratadine (Allergy Relief (loratadine)) 10 mg PO DAILY metformin 500 mg PO BID montelukast 10 mg PO BEDTIME 90 days omeprazole 20 mg PO DAILY 90 days solifenacin 10 mg PO DAILY 30 days Trelegy Ellipta 200-62.5-25 mcg (nouyuchfrqu-srldszvpo-svbbqafk) 1 inh inhalation DAILY 30 days NS Tobacco use date assessed: 04/15/24 Dental Screening Dental Screen Date: 04/15/24 Did you have a dental visit in the last 12 months?: No Did you have a dental problem in the last 6 months where you did not have access to dental care?: No Was dental information given to patient?: No HPI 3mth f/u HPI Details Patient comes in today for her follow up visit States that she has been feeling more depressed lately Is also concerned that she is losing her mind/memory as she could not remember recently as to when her sister's exact birthday was - states that she was off by 1 day (?!) Would like to have some scans or tests done to check her brain out She denies any recent headaches or dizziness Denies any chest pains, no increased SOB No nausea/vomiting, no abdominal pain No change in bowel habits noted She had her follow up labs done last week - to discuss her results [facility] Medical History Overweight (BMI 25.0-29.9) Urinary incontinence Vitamin D deficiency GERD without esophagitis Blister (nonthermal), right foot, initial encounter HPV in female Urge and stress incontinence DM2 (diabetes mellitus, type 2) Hyperlipidemia LDL goal <100 Obesity (BMI 30-39.9) Depression Anxiety Alcohol abuse Obstructive sleep apnea Allergic rhinitis Migraine COPD (chronic obstructive pulmonary disease) Benign essential hypertension Pure hypercholesterolemia Diabetes mellitus Poor historian Chronic bronchitis Surgical History History of colonoscopy History of removal of cyst Family History Father CVD (cardiovascular disease) Mother Emphysema lung Cervical cancer Diabetes Brother Diabetes Myocardial infarction Sister Diabetes Stroke Other Mental health disorder Social History Household Members: None Household Members Other:: [employer] Housing: Apartment Alcohol intake: current Alcohol intake frequency: holidays/special occasions only Patient Tobacco Use Status: Never used Tobacco e-Cigarette/Vaping Use: Never Used Second Hand Smoke Exposure: Yes service: No Current occupational status: disabled Gender identity: Female Cognitive needs: No Hearing needs: Yes Vision needs: Yes Female Reproductive History Menstrual Age of Menarche: 13 Questionnaire PHQ-9 Over the last 2 weeks, how often have you been bothered by any of the following problems? 1. Little interest or pleasure in doing things: not at all 2. Feeling down, depressed, or hopeless: not at all 3. Trouble falling or staying asleep, or sleeping too much: not at all 4. Feeling tired or having little energy: not at all 5. Poor appetite or overeating: not at all 6. Feeling bad about yourself - or that you are a failure or have let yourself or your family down: not at all 7. Trouble concentrating on things, such as reading the newspaper or watching television: not at all 8. Moving or speaking so slowly that other people could have noticed. Or the opposite - being so fidgety or restless that you have been moving around a lot more than usual: not at all 9. Thoughts that you would be better off or of hurting yourself in some way: not at all Total score: 0 Depression Screening Interpretation: Negative (is on Rx) Depression Screening Done: Yes 08484 - PHQ-9 Billing: Yes Source: Developed by Drs. Wade Cardenas, Tomasa Stafford, Javier Chan and colleagues, with an educational keiko from [employer]. Thrive Questionnaire Date Thrive assessed: 04/15/24 I am a: Patient What is your living situation today?: I have a steady place to live Within the past 12 months, did the food you bought not last and you didn't have the money to get more?: Never true Within the past 12 months, did you worry whether your food would run out before you got money to buy more?: Never true Do you have trouble paying for medicines?: No Do you have trouble getting transportation to medical appointments?: No Do you have trouble paying your heating and electricity bill?: No Do you have trouble taking care of your child, family member or friend?: No Do you have trouble with day-to-day activities such as bathing, preparing meals, shopping, managing finances, etc.?: No Are you currently unemployed and looking for a job?: No Are you interested in more education?: No Please select the resources that you would like help with: None Currently or been in a relationship where the following occur: No concerns reported THRIVE Score: 0 AUDIT C Alcohol Use Questionnaire (AUDIT-C) 1. How often do you have a drink containing alcohol?: Monthly or less 2. How many drinks containing alcohol do you have on a typical day when you are drinking?: 1 or 2 3. How often do you have six or more drinks on one occasion?: Never Total Score: 1 Score Reviewed/Action Taken: Yes DOLORES-7 AMB Questionnaire DOLORES-7 Date DOLORES - 7 assessed: 04/15/24 Feeling nervous, anxious, or on edge: 0 = Not at all Not being able to stop or control worryin = Not at all Worrying too much about different things: 0 = Not at all Trouble relaxin = Not at all Being so restless that it is hard to sit still: 0 = Not at all Becoming easily annoyed or irritable: 0 = Not at all Feeling afraid as if something awful might happen: 0 = Not at all Total DOLORES-7 score (0-4 normal; 5-9 mild; 10-14 moderate; 15-21 severe): 0 Source: Developed by Drs. Wade Cardenas, Tomasa Stafford, Javier hCan and colleagues, with an educational keiko from [employer]. DOLORES-7 Assessment Billing DOLORES-7 Assessment Tool: DOLORES-7 Assessment 99710 Review of Systems Const Denies chills, Reports fatigue, Denies fever(s) and Denies headache(s) ENT Denies dysphagia, Denies dizziness, Denies otalgia, Denies headache(s), Denies neck pain, Denies odynophagia and Denies sore throat Card Denies chest pain, Denies rapid heart rate, Denies irregular heart rhythm, Denies palpitations and Reports dyspnea on exertion (mild) Resp Denies chest congestion, Denies cough, Reports dyspnea on exertion (mild) and Denies wheezing GI Denies abdominal pain, Denies constipation, Denies dysphagia, Denies heartburn, Denies diarrhea, Denies nausea, Denies odynophagia and Denies vomiting Denies difficulty voiding, Reports nocturia, Denies dysuria, Reports urinary incontinence (at times) and Reports urinary urgency (on and off) Musc Reports back pain (over the lower back, on and off) and Denies neck pain Skin/Breast Denies rash Neuro Details: (+) baseline cognitive disability Denies dizziness, Denies headache(s), Reports memory loss (per patient - states that she was off by one day on her sister's B-day ) and Denies paresthesias Psych Denies anxiety, Reports depression (increased) and Reports memory loss (per patient - states that she was off by one day on her sister's B-day ) Endo Reports fatigue and Denies palpitations Juancarlos/Lymph Denies easy bruising Aller/Immun Denies wheezing Physical exam (Primary Care) Vital Signs: Last Vital Signs Pulse 103 H 04/15/24 11:15 BP 122/86 04/15/24 11:15 Pulse Ox 96 04/15/24 11:15 Oxygen Delivery Method Room Air 04/15/24 11:15 BMI result Body Mass Index 30.8 Tobacco/Smoking Status: Tobacco use Status Tobacco use date assessed 04/15/24 04/15/24 11:20 Patient Tobacco Use Status Never used Tobacco 04/15/24 11:20 e-Cigarette/Vaping Use Never Used 04/15/24 11:20 PHQ-9: PHQ-9 Score PHQ-9: Total score 0 04/15/24 12:11 Depression Screening Interpretation: Negative (is on Rx) Thrive Assessment: Date of Thrive Assessment Date Thrive assessed 04/15/24 04/15/24 11:20 Currently or been in a relationship where the following occur: No concerns reported Const General: no acute distress and alert Orientation/consciousness: patient oriented x3 HENMT Ears: TM's normal bilaterally and EAC's normal Throat: Yes posterior oropharynx normal and Yes tonsils normal (no TP congestion) Neck Neck: Yes supple and No lymphadenopathy Thyroid: Thyroid normal Resp Auscultation: no crackles, no rales, no wheezes and diminished lung sounds (slightly) bilateral Cardio Rate: regular rate Rhythm: regular rhythm Heart sounds: no murmurs GI Palpation (GI): Soft to palpation and nontender Auscultation: normal bowel sounds General: Yes no CVA tenderness Back/Spine/Pelvis Back: no CVA tenderness Thoracic/Lumbar Spine: lumbar spinal tenderness (mild) Skin Rashes: no rashes Neuro General: patient oriented x3 Extrem General: Yes no clubbing, cyanosis or edema Results Reviewed Results Reviewed: Laboratory Tests 12/23/19 04/08/24 04/13/24 14:47 09:52 07:30 WBC 11.1 H Hgb 14.2 Hct 45.2 Plt Count 293 Sodium 144 Potassium 5.2 H Creatinine 0.98 Estimated GFR 59 Fasting Glucose 122 H Hemoglobin A1c % 6.7 8.0 H Calcium 9.9 AST 32 H ALT 49 H Alkaline Phosphatase 121 H Triglycerides 268 H Cholesterol 164 LDL Cholesterol, Calc 67 HDL Cholesterol 44 Vitamin B12 395 25-OH Vitamin D Total 55.3 Folate 11.2 TSH 3.71 Ur Specific Weston 1.015 Urine Protein Negative Urine Glucose (UA) Negative Urine Blood Negative Urine Nitrite Negative Ur Leukocyte Esterase Small (1+) H Coding Level of Care Code Est Pt Level 4 (16107) Diagnoses Chronic obstructive pulmonary disease, unspecified COPD type J44.9 COPD type: unspecified COPD Type 2 diabetes mellitus without complication, without long-term current use of insulin E11.9 Diabetes mellitus type: type 2 Diabetes mellitus mcc insulin use: without computer terminal operator use Diabetes mellitus complication status: without complication Pure hypercholesterolemia E78.00 Benign essential hypertension I10 Allergic rhinitis, unspecified seasonality, unspecified trigger J30.9 Allergic rhinitis trigger: unspecified Allergic rhinitis seasonality: unspecified Obstructive sleep apnea G47.33 Memory impairment R41.3 GERD without esophagitis K21.9 OAB (overactive bladder) N32.81 Anxiety F41.9 Moderate episode of recurrent major depressive disorder F33.1 Depression Type: major depressive disorder Major depression recurrence: recurrent Active/Remission status: currently active Major depression episode severity: moderate Overweight (BMI 25.0-29.9) E66.3 Additional Codes DOLORES-7 Assessment Billing - DOLORES-7 Assessment Tool: DOLORES-7 Assessment 98898 ([id number]) PHQ-9 - 10467 - PHQ-9 Billing: Yes ([id number]) Assessment & Plan Assessment & Plan (1) COPD (chronic obstructive pulmonary disease): Code(s): J44.9 - Chronic obstructive pulmonary disease, unspecified Category: Medical Qualifiers: COPD type: unspecified COPD Qualified Code(s): J44.9 - Chronic obstructive pulmonary disease, unspecified Plan: Stable/controlled Continue Trelegy Ellipta 200-62.5-25 mcg 1 inhalation QD and Albuterol HFA 1 to 2 inhalations QID PRN Follow up with pulmonary (Dr. Gleason) as scheduled (2) Diabetes mellitus: Code(s): E11.9 - Type 2 diabetes mellitus without complications Category: Medical Qualifiers: Diabetes mellitus type: type 2 Diabetes mellitus mcc insulin use: without mcc use Diabetes mellitus complication status: without complication Qualified Code(s): E11.9 - Type 2 diabetes mellitus without complications Plan: Her HgbA1c has increased to 8.0% on her recent labs (in-office HgbA1c was previously at 6.5% a few months ago) - goal is at least <7.0% Reinforced diabetic diet Continue Metformin 500 mg BID and Trulicity 0.75 mg SQ once a week for now Patient was following up with Dulce Maria Oneill at [facility] for her diabetes but it does not look like she has been seen by them since her last visit with Dulce Maria Oneill in June 2021 She was previously referred back to [facility] for follow up and management of her diabetes but was advised that since her diabetes appear well- controlled, she should just follow up with her PCP and does not need to see e ndocrinology but have advised patient that if she cannot get her diabetes back under control over the next few months, we will need to consider referring her back to endocrinology (3) Pure hypercholesterolemia: Code(s): E78.00 - Pure hypercholesterolemia, unspecified Category: Medical Plan: Results of her labs done last week reviewed and discussed with patient - have advised her that her serum triglyceride level has increased significantly from previous, likely in relation to her worsened diabetes control over the past few months Reinforced low cholesterol diet Continue Atorvastatin 80 mg QD for now Will recheck her labs and fasting lipids in 3 months for follow up (4) Benign essential hypertension: Code(s): I10 - Essential (primary) hypertension Category: Medical Plan: Reinforced low sodium diet - goal is systolic BP of at least 130 mm or less Patient used to be on Lisinopril 5 mg QD but she appears to have stopped taking this at some point - not clear at when or why but her BP appears to be controlled so far without the Rx Have advised patient to continue having her blood pressure monitored regularly for now (5) Allergic rhinitis: Code(s): J30.9 - Allergic rhinitis, unspecified Category: Medical Qualifiers: Allergic rhinitis trigger: unspecified Allergic rhinitis seasonality: unspecified Qualified Code(s): J30.9 - Allergic rhinitis, unspecified Plan: Continue Montelukast 10 mg QD (6) Obstructive sleep apnea: Code(s): G47.33 - Obstructive sleep apnea (adult) (pediatric) Category: Medical Plan: Patient has severe MARLYN based on her repeat sleep study with CPAP titration done in March 2016 but has been unable to tolerate a CPAP mask? and is therefore unable to use a corrective CPAP device She has been advised that she should consider seeing Sleep Medicine so they can help her look into this further but she still wants to hold off on this for now (7) Memory impairment: Code(s): R41.3 - Other amnesia Category: Medical Plan: Have advised patient that misremembering her sister's birthday (she was just off by 1 day) does not necessarily mean that she is starting to lose her memory but she was insistent that she wants something done to check her for memory issues Will go ahead and refer her to neurology for further evaluation and management (8) GERD without esophagitis: Code(s): K21.9 - Gastro-esophageal reflux disease without esophagitis Category: Medical Plan: Dietary restrictions reinforced Continue Omeprazole 20 mg QD (9) OAB (overactive bladder): Code(s): N32.81 - Overactive bladder Category: Medical Plan: Continue Solifenacin 10 mg QD Follow up with urology as scheduled (10) Anxiety: Code(s): F41.9 - Anxiety disorder, unspecified Category: Medical Plan: Patient states that current medications are helping -? follow-up with Psychiatry as scheduled (11) Depression: Code(s): F32.9 - Major depressive disorder, single episode, unspecified Category: Medical Qualifiers: Depression Type: major depressive disorder Major depression recurrence: recurrent Active/Remission status: currently active Major depression episode severity: moderate Qualified Code(s): F33.1 - Major depressive disorder, recurrent, moderate Plan: Continue Escitalopram 20 mg QD and Amitriptyline 25 mg Q HS Will increase her Bupropion XL from 300 mg to 450 mg Q AM Follow-up with Psychiatry as scheduled (12) Overweight (BMI 25.0-29.9): Code(s): E66.3 - Overweight Category: Medical Plan: Reinforced diet/exercise as tolerated/lose weight Plan Follow up in 3 months Orders: Orders Hemoglobin A1c 3 Months E11.9 - Type 2 diabetes mellitus without complications TSH reflex Free T4 3 Months E78.00 - Pure hypercholesterolemia, unspecified UA CC w/rflx Micro + Cult 3 Months R30.0 - Dysuria Vitamin D 25-OH Total 3 Months E55.9 - Vitamin D deficiency, unspecified Lipid Panel 3 Months E78.00 - Pure hypercholesterolemia, unspecified Comprehensive Bruce. Panel Fast 3 Months E78.00 - Pure hypercholesterolemia, unspecified Microalbumin, Random (w Creat) 3 Months E11.9 - Type 2 diabetes mellitus without complications Vitamin B12 and Folate 3 Months E53.8 - Deficiency of other specified B group vitamins Complete Blood Count Auto Diff 3 Months D64.9 - Anemia, unspecified Referrals Neurology Referral R41.3 - Other amnesia Medications: Changed From bupropion HCl XL 300 mg PO QAM 90 days 90 tabs 1RF F33.1 - Major depressive disorder, recurrent, moderate To Forfivo XL (bupropion HCl) 450 mg PO QAM 90 days 90 tabs 1RF NS F33.1 - Major depressive disorder, recurrent, moderate
--- OUTSIDE RECORDS SUMMARY | 2024-04-15 12:56 | XMS_ITS | Encounter Summary ---
Author Organization [employer] Address [address] [place] [address] Care Team Providers Care Mailing Manager Name Role Phone Unavailable Primary Care Provider [...]
--- OUTSIDE RECORDS SUMMARY | 2024-04-15 12:56 | XMS_ITS | Clinical Summary ---
Author Organization [facility] [employer] Address [address] [place] [address] Care Team Providers Care Patient Services Clerk Name Role Phone Unavailable Primary Care Provider [...] Type Department Care Team Description 03/08/2024 Telephone [facility] [address] [place] [address] Jaziel Dominguez no show appt from Last [...] 5 Years) and At-Risk Patients (6 to 49) Years) Aged Out 04/26/2019, 04/26/2019 No longer [...] Most Recently Relevant to Health Maintenance Insurance [facility] ADULT
--- OUTSIDE RECORDS SUMMARY | 2024-04-15 12:56 | XMS_ITS | Encounter Summary ---
Author Organization [employer] Address [address] [place] [address] Care Team Providers Care Bank President Name Role Phone Unavailable Primary Care Provider Unavailabl e Reason for Visit * Reason Onset Date Comments rs no show appt 03/08/2024 Encounter Details Date Type Department Care Team (Late st Contact Info) Description 03/08/2024 Telephone [facility] [address] [place] [address] Jaziel Dominguez rs no show appt Social [...] she as unable to make it [facility] due to being sick and being [...]
== END 2024-04-15 12:02 | disposition home or self-care (01) ==
PROVIDERS: PCP Internal Medicine; Visit Provider Internal Medicine
DX: E11.9 Type 2 diabetes mellitus without complications (principal); J44.9 Chronic obstructive pulmonary disease, unspecified; F33.1 Major depressive disorder, recurrent, moderate; E78.00 Pure hypercholesterolemia, unspecified; I10 Essential (primary) hypertension; J30.9 Allergic rhinitis, unspecified; G47.33 Obstructive sleep apnea (adult) (pediatric); R41.3 Other amnesia; K21.9 Gastro-esophageal reflux disease without esophagitis; N32.81 Overactive bladder; F41.9 Anxiety disorder, unspecified; E66.3 Overweight

== ENCOUNTER → 2024-04-15 09:51 | Outpatient (BNVA) | payer MEDICARE, MEDICAID, SELFPAY | PROVIDERS: PCP Internal Medicine; Visit Provider Internal Medicine | DX: J44.9 Chronic obstructive pulmonary disease, unspecified (principal); E11.9 Type 2 diabetes mellitus without complications; E78.00 Pure hypercholesterolemia, unspecified; I10 Essential (primary) hypertension; J30.9 Allergic rhinitis, unspecified; G47.33 Obstructive sleep apnea (adult) (pediatric); R41.3 Other amnesia; K21.9 Gastro-esophageal reflux disease without esophagitis; N32.81 Overactive bladder; F41.9 Anxiety disorder, unspecified; F33.1 Major depressive disorder, recurrent, moderate; E66.3 Overweight | CPT/HCPCS: 96127; 99212 ==

== ENCOUNTER 2024-08-19 15:46 | Outpatient (AMB) | payer MEDICARE, MEDICAID, SELFPAY ==
--- NOTE | 2024-08-19 15:49 | A.OFFPC_ITS ---
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 Accompanied by: Self / Same As Patient Allergies codeine [CODEINE] Adverse Reaction (Intermediate, Verified 08/19/24 15:52) Vomiting Medication List - Last Reconciled 08/19/24 by Racheal Flores MD albuterol sulfate 90 mcg/actuation (Ventolin HFA) 2 puffs inhalation Q6H PRN 30 days amitriptyline 25 mg PO BEDTIME 90 days atorvastatin 80 mg PO DAILY azithromycin take 500 mg today (day 1), then 250 mg for 4 days (days 2-5) PO blood sugar diagnostic As directed blood sugar diagnostic (FreeStyle Lite Strips) As directed once daily blood-glucose meter (FreeStyle Lite Meter kit) As directed dextromethorphan polistirex ER (Delsym 12 hour) 10 mL PO Q12H PRN [DIABETIC SHOES As directed] doxycycline hyclate 100 mg PO BID dulaglutide (Trulicity) 0.75 mg (0.5 mL) subcut QWEEK ergocalciferol (vitamin D2) 1,250 mcg PO QWEEK 3 months escitalopram oxalate 20 mg PO DAILY 90 days fluticasone propionate 50 mcg/actuation 1 spray intranasal BID Forfivo XL (bupropion HCl) 450 mg PO QAM 90 days NS lancets (Comfort EZ Lancets) As directed once per day loratadine (Allergy Relief (loratadine)) 10 mg PO DAILY metformin 500 mg PO BID montelukast 10 mg PO BEDTIME 90 days omeprazole 20 mg PO DAILY 90 days solifenacin 10 mg PO DAILY 30 days Trelegy Ellipta 200-62.5-25 mcg (qkenjbxvysn-thgeialrm-[id number]) 1 inh inhalation DAILY 30 days NS Tobacco use date assessed: 08/19/24 Dental Screening Dental Screen Date: 08/19/24 Did you have a dental visit in the last 12 months?: No Did you have a dental problem in the last 6 months where you did not have access to dental care?: No Was dental information given to patient?: No HPI Continued cough HPI Details cough for 1 week, no fever, scratchy throat, no diarrhea, , productive PFSH Medical History Overweight (BMI 25.0-29.9) Urinary incontinence Vitamin D deficiency GERD without esophagitis Blister (nonthermal), right foot, initial encounter HPV in female Urge and stress incontinence DM2 (diabetes mellitus, type 2) Hyperlipidemia LDL goal <100 Obesity (BMI 30-39.9) Depression Anxiety Alcohol abuse Obstructive sleep apnea Allergic rhinitis Migraine COPD (chronic obstructive pulmonary disease) Benign essential hypertension Pure hypercholesterolemia Diabetes mellitus Poor historian Chronic bronchitis Surgical History History of colonoscopy History of removal of cyst Family History Father CVD (cardiovascular disease) Mother Emphysema lung Cervical cancer Diabetes Brother Diabetes Myocardial infarction Sister Diabetes Stroke Other Mental health disorder Social History Household Members: None Household Members Other:: [employer] Housing: Apartment Alcohol intake: current Alcohol intake frequency: holidays/special occasions only Patient Tobacco Use Status: Never used Tobacco e-Cigarette/Vaping Use: Never Used Second Hand Smoke Exposure: Yes service: No Current occupational status: disabled Gender identity: Female Cognitive needs: No Hearing needs: Yes Vision needs: Yes Female Reproductive History Menstrual Age of Menarche: 13 Questionnaire PHQ-9 Over the last 2 weeks, how often have you been bothered by any of the following problems? 1. Little interest or pleasure in doing things: not at all 2. Feeling down, depressed, or hopeless: not at all 3. Trouble falling or staying asleep, or sleeping too much: not at all 4. Feeling tired or having little energy: not at all 5. Poor appetite or overeating: not at all 6. Feeling bad about yourself - or that you are a failure or have let yourself or your family down: not at all 7. Trouble concentrating on things, such as reading the newspaper or watching television: not at all 8. Moving or speaking so slowly that other people could have noticed. Or the opposite - being so fidgety or restless that you have been moving around a lot more than usual: not at all 9. Thoughts that you would be better off or of hurting yourself in some way: not at all Total score: 0 Depression Screening Interpretation: Negative (is on Rx) Depression Screening Done: Yes 98106 - PHQ-9 Billing: Yes Source: Developed by Drs. Wade Cardenas, Tomasa Stafford, Javier Chan and colleagues, with an educational keiko from [employer]. Thrive Questionnaire Date Thrive assessed: 08/19/24 I am a: Patient What is your living situation today?: I have a steady place to live Within the past 12 months, did the food you bought not last and you didn't have the money to get more?: Never true Within the past 12 months, did you worry whether your food would run out before you got money to buy more?: Never true Do you have trouble paying for medicines?: No Do you have trouble getting transportation to medical appointments?: No Do you have trouble paying your heating and electricity bill?: No Do you have trouble taking care of your child, family member or friend?: No Do you have trouble with day-to-day activities such as bathing, preparing meals, shopping, managing finances, etc.?: No Are you currently unemployed and looking for a job?: No Are you interested in more education?: No Please select the resources that you would like help with: None Currently or been in a relationship where the following occur: No concerns reported THRIVE Score: 0 AUDIT C Alcohol Use Questionnaire (AUDIT-C) 1. How often do you have a drink containing alcohol?: Monthly or less 2. How many drinks containing alcohol do you have on a typical day when you are drinking?: 1 or 2 3. How often do you have six or more drinks on one occasion?: Never Total Score: 1 Score Reviewed/Action Taken: Yes DOLORES-7 AMB Questionnaire DOLORES-7 Date DOLORES - 7 assessed: 08/19/24 Feeling nervous, anxious, or on edge: 0 = Not at all Not being able to stop or control worryin = Not at all Worrying too much about different things: 0 = Not at all Trouble relaxin = Not at all Being so restless that it is hard to sit still: 0 = Not at all Becoming easily annoyed or irritable: 0 = Not at all Feeling afraid as if something awful might happen: 0 = Not at all Total DOLORES-7 score (0-4 normal; 5-9 mild; 10-14 moderate; 15-21 severe): 0 Source: Developed by Drs. Wade Cardenas, Tomasa Stafford, Javier Chan and colleagues, with an educational keiko from [employer]. DOLORES-7 Assessment Billing DOLORES-7 Assessment Tool: DOLORES-7 Assessment 33430 Physical exam (Primary Care) Vital Signs: Last Vital Signs Pulse 99 08/19/24 15:51 BP 138/96 H 08/19/24 15:51 Pulse Ox 95 08/19/24 15:51 Oxygen Delivery Method Room Air 08/19/24 15:51 BMI result Body Mass Index 29.0 Tobacco/Smoking Status: Tobacco use Status Tobacco use date assessed 08/19/24 08/19/24 15:55 Patient Tobacco Use Status Never used Tobacco 08/19/24 15:50 e-Cigarette/Vaping Use Never Used 08/19/24 15:50 PHQ-9: PHQ-9 Score PHQ-9: Total score 0 08/19/24 16:16 Depression Screening Interpretation: Negative (is on Rx) Thrive Assessment: Date of Thrive Assessment Date Thrive assessed 08/19/24 08/19/24 15:55 Currently or been in a relationship where the following occur: No concerns reported Const General: alert; No acute distress Eyes Conjunctivae: conjunctivae normal Resp Other: no wheezing has rhonchi but no crackles noted Auscultation: clear to auscultation bilaterally Cardio Rate: regular rate Rhythm: regular rhythm GI Inspection: Yes normal to inspection Extrem General: Yes normal to inspection and No edema Results AMB Hemoglobin A1c 2 AMB Hemoglobin A1c 6.7 % Last Edit by BERNARDINO Jaimes on 08/19/24 16 :17 Results Reviewed Results Reviewed: Laboratory Last Values Hgb A1c (Clinic) 6.7 % (4.0-6.0) H 08/19/24 16:02 Coding Level of Care Code Est Pt Level 4 (99259) Diagnoses Type 2 diabetes mellitus with hyperglycemia E11.65 Overweight (BMI 25.0-29.9) E66.3 Hyperlipidemia LDL goal <100 E78.5 Chronic obstructive pulmonary disease, unspecified COPD type J44.9 COPD type: unspecified COPD Benign essential hypertension I10 Pure hypercholesterolemia E78.00 Acute bronchitis J20.9 Additional Codes DOLORES-7 Assessment Billing - DOLORES-7 Assessment Tool: DOLORES-7 Assessment 24651 ([id number]) PHQ-9 - 26063 - PHQ-9 Billing: Yes ([id number]) Assessment & Plan Assessment & Plan (1) Type 2 diabetes mellitus with hyperglycemia: Code(s): E11.65 - Type 2 diabetes mellitus with hyperglycemia Category: Medical Plan: Decrease the amount of carbohydrate intake, pasta, bread, rice and potatoes are all sugar and that is aside from all the sweet stuff, remember that fruits are good but they are Sweet also. Hemoglobin A1c goal of less than 6.5 patient on Trulicity metformin (2) Overweight (BMI 25.0-29.9): Code(s): E66.3 - Overweight Category: Medical Plan: Diet and exercise (3) Hyperlipidemia LDL goal <100: Code(s): E78.5 - Hyperlipidemia, unspecified Category: Medical Plan: Avoid fried foods, chicken skin, eggs, butter margarine, pastries and meat. Be it pork or beef they have a lot of cholesterol LDL goal of less than 100 and triglyceride of less than 150 patient is on atorvastatin 80 mg once a day (4) COPD (chronic obstructive pulmonary disease): Code(s): J44.9 - Chronic obstructive pulmonary disease, unspecified Category: Medical Qualifiers: COPD type: unspecified COPD Qualified Code(s): J44.9 - Chronic obstructive pulmonary disease, unspecified Plan: Patient is on albuterol and Trelegy and montelukast (5) Benign essential hypertension: Code(s): I10 - Essential (primary) hypertension Category: Medical Plan: Continue with blood pressure medication. Decrease salt intake and exercise (6) Pure hypercholesterolemia: Code(s): E78.00 - Pure hypercholesterolemia, unspecified Category: Medical Plan: Avoid fried foods, chicken skin, eggs, butter margarine, pastries and meat. Be it pork or beef they have a lot of cholesterol on atorvastatin 80 mg once a day LDL goal of less than 100 and triglyceride of less than 150 (7) Acute bronchitis: Code(s): J20.9 - Acute bronchitis, unspecified Category: Medical Plan: Discussed that brochitis is viral infection. For the sore throat can take Cepacol lozenges, discussed about Delsym to help with dry cough so she can rest and advised to increase oral fluids. Patient also can take Tylenol for chills and fever. Plan History of Present Illness The patient is a 58-year-old female presenting with a persistent cough lasting one week. She reports no fever, sore throat, or diarrhea but notes phlegm production without sick contacts at home. Her significant medical history includes poorly controlled diabetes mellitus, with the most recent hemoglobin A1c of 6.7, managed with medications and lifestyle modifications. Hypercholesterolemia is managed with atorvastatin, although her triglyceride levels remain elevated. COPD management includes albuterol and Trelegy inhalers. Past medical history is notable for obstructive sleep apnea, a history of alcohol use disorder, generalized anxiety disorder, and a previous tubular adenoma of the colon. Recent tests include a chest x-ray with no acute findings and stable laboratory results from March. Health Maintenance - Recent x-ray in December 2023: clear lungs. - Last blood work in March 2024: normal blood count, mild leukocytosis, mildly elevated liver enzymes, cholesterol within goal but elevated triglycerides at 268. - Diabetes management: hemoglobin A1c goal of less than 6.5, recent result was 6.7. - Cholesterol management: LDL goal of less than 100. Social History - Patient resides alone. - No children or family at home. - Hydration: patient reports drinking adequate water. Review of Systems - Respiratory: Reports cough with phlegm for one week; denies fever and sore throat. - Gastrointestinal: Denies diarrhea. - Ear, Nose, Throat: Denies ear pain. - General: Denies any other sick contacts at home. Physical Exam - Respiratory- Lung auscultation with no abnormal findings. Results - Labs (March 2024): Normal blood count, mild leukocytosis, mildly elevated liver enzymes. - Chest X-Ray (December 2023): Clear lungs. Plan The management of the bronchitis will focus on supportive care through hydration and rest, while withholding antibiotics due to the viral nature of the infection. Additionally, the patient's albuterol inhaler prescription is refilled to support COPD management. Diabetes and cholesterol continue under current treatment plans, aiming for respective target levels and addressing the elevated triglycerides through dietary changes. Continuing attention to routine follow-up for other chronic conditions and health maintenance, including monito ring of liver and renal function, is required given the patient's complex medical history. Patient was informed and verbally consented to the use of an ambient scribe for clinic note documentation during this visit. Discussion Notes I discussed that the patient is experiencing a viral bronchitis, explaining that increasing fluid intake and resting at home will aid in recovery. An antibiotic was not prescribed at this point, but I emphasized careful monitoring over the weekend, with the option for antibiotics if symptoms worsen. We reviewed her COPD management with a refill for her albuterol inhaler. I addressed the diabetes management strategy, highlighting that improvements are seen with current treatments, and LDL cholesterol levels have achieved targets with atorvastatin. I reiterated goals for triglyceride levels and emphasized dietary modification to achieve these. The continuity of managing anxiety and prior tubular adenoma was noted. I explained the importance of regular check-ups and monitoring. Patient Instructions - Drink six to eight glasses of water daily. - Rest at home and monitor symptoms, especially over the weekend. - Use albuterol inhaler as prescribed for COPD management. - Dietary modifications to lower triglycerides and manage cholesterol. - Follow-up on diabetes management with monitoring of blood sugar levels. - No antibiotics needed presently, but seek further care if symptoms worsen. Orders: Orders AMB Hemoglobin A1c Today Z13.9 - Encounter for screening, unspecified XR chest 2V Today J20.9 - Acute bronchitis, unspecified Medications: New dextromethorphan polistirex ER (Delsym 12 hour) 10 mL PO Q12H PRN 89 mL 0RF cough J20.9 - Acute bronchitis, unspecified doxycycline hyclate 100 mg PO BID 14 caps 0RF J20.9 - Acute bronchitis, unspecified Refilled albuterol sulfate 90 mcg/actuation (Ventolin HFA) 2 puffs inhalation Q6H PRN 8.5 grams 0RF shortness of breath or wheezing 30 days J20.9 - Acute bronchitis, unspecified Discontinued azithromycin Discontinued Reason: Patient Completed Course take 500 mg today (day 1), then 250 mg for 4 days (days 2-5) PO 6 tabs 0RF
[2024-08-19 15:51] VITALS: BP 138/96; PULSE 99; O2SAT 95; BMI 29.0
--- OUTSIDE RECORDS SUMMARY | 2024-08-19 18:05 | XMS_ITS | Encounter Summary ---
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
== END 2024-08-19 16:26 | disposition home or self-care (01) ==
PROVIDERS: PCP Internal Medicine; Visit Provider Internal Medicine
DX: E11.65 Type 2 diabetes mellitus with hyperglycemia (principal); E66.3 Overweight; E78.5 Hyperlipidemia, unspecified; J44.9 Chronic obstructive pulmonary disease, unspecified; I10 Essential (primary) hypertension; E78.00 Pure hypercholesterolemia, unspecified; J20.9 Acute bronchitis, unspecified; Z13.9 Encounter for screening, unspecified

== ENCOUNTER → 2024-08-19 15:46 | Outpatient (BNVA) | payer MEDICARE, MEDICAID, SELFPAY | PROVIDERS: PCP Internal Medicine; Visit Provider Internal Medicine | DX: E11.65 Type 2 diabetes mellitus with hyperglycemia (principal); E66.3 Overweight; Z68.29 Body mass index [BMI] 29.0-29.9, adult; E78.5 Hyperlipidemia, unspecified; J44.9 Chronic obstructive pulmonary disease, unspecified; I10 Essential (primary) hypertension; E78.00 Pure hypercholesterolemia, unspecified; J20.9 Acute bronchitis, unspecified; Z71.3 Dietary counseling and surveillance | CPT/HCPCS: 83036; 96127; 99212 ==

== ENCOUNTER 2024-09-02 11:04 | Outpatient (REF) | payer MEDICARE, MEDICAID, SELFPAY ==
--- NOTE | ~2024-09-02 | MM_ITS ---
EXAMINATION: MM SCREENING DIGITAL BREAST TOMOSYNTHESIS, BILATERAL CLINICAL INFORMATION: Screening. Asymptomatic. COMPARISON: Mammography: Comparison is made with available priors TECHNIQUE: Digital breast mammography with tomosynthesis is performed in both the craniocaudal and mediolateral oblique views along with computer-aided detection (CAD). FINDINGS: There are scattered areas of fibroglandular density (ACR BI-RADS breast composition Category b). There are no significant masses, abnormal calcifications, or other abnormalities. MM/MM tomosynthesis screening BI IMPRESSION: No mammographic evidence of malignancy. ASSESSMENT: BI-RADS BI-RADS 1 - Negative RECOMMENDATION: Routine annual mammography screening. 1 year F/U This examination should not preclude the clinical evaluation of a suspicious palpable abnormality. This patient's information was entered into a reminder system with a target due date for their next mammogram. Electronically signed by: Sierra Jordan DO 09/07/2024 02:52 PM EDT
--- OUTSIDE RECORDS SUMMARY | 2024-09-02 12:38 | XMS_ITS | Encounter Summary ---
Author Organization [employer] Address [address] [facility] [address] [place] [address] Care Team Providers Care Solid Tire Finisher Name Role Phone Unavailable Primary Care Provider Unavailabl e Encounter Details Date Type Department Care Team (Latest Contact Info) Description 05/06/2019 Abstract [facility] CONVERSIONS Dental, Provider, DDS Social History Tobacco [...]
== END 2024-09-02 11:05 | disposition home or self-care (01) ==
LOC: HO.MAMMO 11:04
PROVIDERS: PCP Internal Medicine; Visit Provider Internal Medicine
DX: Z12.31 Encounter for screening mammogram for malignant neoplasm of breast (principal)
CPT/HCPCS: 77063; 77067

== ENCOUNTER → 2024-09-02 11:30 | Outpatient (BNV) | payer MEDICARE, MEDICAID, SELFPAY | PROVIDERS: PCP Internal Medicine; Visit Provider Internal Medicine | DX: Z12.31 Encounter for screening mammogram for malignant neoplasm of breast (principal) | CPT/HCPCS: 77063; 77067 ==

== ENCOUNTER 2024-10-07 12:30 | Outpatient (AMB) | payer MEDICARE, MEDICAID, SELFPAY ==
--- OUTSIDE RECORDS SUMMARY | 2024-10-07 12:53 | XMS_ITS | Encounter Summary ---
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
--- NOTE | 2024-10-07 13:10 | MHC.OFFVIS ---
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: No Allergies codeine (CODEINE) Adverse Reaction (Intermediate, Verified 10/07/24 13:26) Vomiting Medication List - Last Reconciled 10/07/24 by Samra Esetban MD albuterol sulfate 90 mcg/actuation (Ventolin HFA) 2 puffs inhalation Q6H PRN 30 days amitriptyline 25 mg PO BEDTIME 90 days atorvastatin 80 mg PO DAILY blood sugar diagnostic As directed blood sugar diagnostic (FreeStyle Lite Strips) As directed once daily blood-glucose meter (FreeStyle Lite Meter kit) As directed dextromethorphan polistirex ER (Delsym 12 hour) 10 mL PO Q12H PRN [DIABETIC SHOES As directed] doxycycline hyclate 100 mg PO BID dulaglutide (Trulicity) 0.75 mg (0.5 mL) subcut QWEEK ergocalciferol (vitamin D2) 1,250 mcg PO QWEEK 3 months escitalopram oxalate 20 mg PO DAILY 90 days fluticasone propionate 50 mcg/actuation 1 spray intranasal BID Forfivo XL (bupropion HCl) 450 mg PO QAM 90 days NS lancets (Comfort EZ Lancets) As directed once per day loratadine (Allergy Relief (loratadine)) 10 mg PO DAILY metformin 500 mg PO BID montelukast 10 mg PO BEDTIME 90 days omeprazole 20 mg PO DAILY 90 days solifenacin 10 mg PO DAILY 30 days Trelegy Ellipta 200-62.5-25 mcg (nutefcjzwlv-sqlkoqwgo-sbufhdua) 1 inh inhalation DAILY 30 days NS HPI Comments Details: 58y/o female with complex medical history comes here for evaluation of memory issues. she is accompanied by her family support specialist from [facility] . she has h/o developmental delay ? alcohol overuse history and depression ? bipolar sleep apnea - noncompliant with CPAP. she is a poor historian but reports short term recall issues. she forgets phone numbers, medications.she has nurse that gives her medications she was a full term baby -not clear if she had any issues as a child.she is independent in all ADLS. she can do grocery shopping on her own , can take a bus and go to medical appointments. [facility] Medical History (Updated 10/07/24 @ 13:55 by Samra Esteban MD) Cognitive change Overweight (BMI 25.0-29.9) Urinary incontinence Vitamin D deficiency GERD without esophagitis Blister (nonthermal), right foot, initial encounter HPV in female Urge and stress incontinence DM2 (diabetes mellitus, type 2) Hyperlipidemia LDL goal <100 Obesity (BMI 30-39.9) Depression Anxiety Alcohol abuse Obstructive sleep apnea Allergic rhinitis Migraine COPD (chronic obstructive pulmonary disease) Benign essential hypertension Pure hypercholesterolemia Diabetes mellitus Poor historian Chronic bronchitis Surgical History History of colonoscopy History of removal of cyst Family History Father CVD (cardiovascular disease) Mother Emphysema lung Cervical cancer Diabetes Brother Diabetes Myocardial infarction Sister Diabetes Stroke Other Mental health disorder Social History Household Members: None Household Members Other:: [employer] Housing: Apartment Alcohol intake: current Alcohol intake frequency: holidays/special occasions only Patient Tobacco Use Status: Never used Tobacco e-Cigarette/Vaping Use: Never Used Second Hand Smoke Exposure: Yes service: No Current occupational status: disabled Gender identity: Female Cognitive needs: No Hearing needs: Yes Vision needs: Yes Female Reproductive History Menstrual Age of Menarche: 13 Physical Exam Vital Signs: Last Vital Signs Pulse 93 10/07/24 13:19 BP 90/60 10/07/24 13:19 Pulse Ox 96 10/07/24 13:19 Oxygen Delivery Method Room Air 10/07/24 13:19 BMI result Body Mass Index 29.3 Const General: cooperative, no acute distress and anxious Nutritional Appearance: overweight Orientation/consciousness: patient oriented x3 Eyes Pupils: Equal, round and reactive pupils present Neuro Other: mild off balance slurred speech General: patient oriented x3, tone normal, moves all extremities and no focal motor deficits Cranial nerves: Yes Equal, round and reactive pupils present, Yes Bilaterally intact EOM present, Yes Nystagmus not present, Yes Normal facial strength present, Yes Midline tongue present, Yes Symmetric palate elevation present and Yes Ability to bilaterally elevate shoulders present Cognition (Neuro): abnormal cognition Motor exam (neuro): 5/5 motor strength present throughout and Normal motor muscle tone present throughout Deep tendon reflexes (DTR's): Right triceps reflex intensity grade: 2+, Left triceps reflex intensity grade: 2+, Rt Biceps (C5, C6): 2+, Left biceps reflex intensity grade: 2+, Right brachioradialis reflex intensity grade: 2+, Left brachioradialis reflex intensity grade: 2+, Right patellar reflex intensity grade: 4+ and Left patellar reflex intensity grade: 4+ Coordination: [id number] test normal Orientation What is the (year) (season) (date) (day) (month)?: year, season, date, day and month Where are we (state) (county) (town or city) (hospital) (floor)?: state, town or city, hospital/clinic and floor Registration Name of 3 unrelated objects clearly and slowly, then ask patient to repeat all 3 of them. (1st repeat determines score. Make sure they can repeat all three): object 1, object 2 and object 3 Attention & Calculation (CHOOSE ONE) Spell WORLD backwards (DLROW): 5 letters Language Show patient a wristwatch & ask what it is. Repeat for pencil.: watch and pencil Ask the patient to repeat the phrase 'No ifs, ands, or buts' after you.: correct Ask the patient to 'take a piece of paper with their right hand' 'fold paper in half' 'place paper on floor': take paper in right hand Print the sentence 'CLOSE YOUR EYES' on a piece. If patient actually closes eyes then score.: followed written direction Give patient a blank piece of paper & ask to write a sentence. Score if it contains a noun & verb.: sentence contains subject and verb Score Score: 23 Assessment & Plan Assessment & Plan (1) Cognitive change: Comment: ? untretaed sleep apnea? poorly controlled mood ? hearing loss - Code(s): R41.89 - Other symptoms and signs involving cognitive functions and awareness Category: Medical Plan I will evaluate her with MRI brain Vit B12, TSH, CBC CMP RPR ESR Home sleep test to reevaluate - to see if she is a candidate for oral device therapy Orders: Orders MR head/brain wo con Today R41.89 - Other symptoms and signs involving cognitive functions and awareness Vitamin B12 and Folate Today R41.89 - Other symptoms and signs involving cognitive functions and awareness Comprehensive Met. Panel Today R41.89 - Other symptoms and signs involving cognitive functions and awareness Complete Blood Count Auto Diff Today R41.89 - Other symptoms and signs involving cognitive functions and awareness RPR Monitor reflex titer Today R41.89 - Other symptoms and signs involving cognitive functions and awareness TSH reflex Free T4 Today R41.89 - Other symptoms and signs involving cognitive functions and awareness Erythrocyte Sedimentation Rate Today R41.89 - Other symptoms and signs involving cognitive functions and awareness RT home sleep study Today G47.33 - Obstructive sleep apnea (adult) (pediatric) Coding Level of Care Code New Pt Level 4 (01264) Diagnoses Cognitive change R41.89
[2024-10-07 13:19] VITALS: BP 90/60; PULSE 93; O2SAT 96; BMI 29.3
== END 2024-10-07 14:10 | disposition home or self-care (01) ==
LOC: HO.HSMS 12:30
PROVIDERS: PCP Internal Medicine; Visit Provider Psychiatry & Neurology Neurology
DX: R41.89 Other symptoms and signs involving cognitive functions and awareness (principal)
CPT/HCPCS: 99214

== ENCOUNTER 2024-10-07 12:30 | Outpatient (REF) | payer MEDICARE, MEDICAID, SELFPAY ==
[2024-10-07 17:34] LABS: MANUAL DIFF FLAG NO
[2024-10-07 17:54] LABS: Hematocrit 40.5 % (37.0-47.0); Hemoglobin 12.7 g/dl (12.0-16.0); Imm Gran Abs Auto 0.05 X10*3/uL (0.00-0.03); Imm Gran Pct Auto 0.6 % (0.0-0.4); Lymphocytes Absolute Auto 1.7 X10*3/uL (1.2-4.9); Mean Corpuscular HGB Conc 31.4 g/dl (31.0-35.0); Mean Corpuscular Hemoglobin 29.7 pg (27.0-33.0); Mean Corpuscular Volume 94.8 fL (80.0-98.0); NRBC Abs Auto 0.000 X10*3/uL (0.0-0.012); NRBC Pct Auto 0.0 /100WBC (0.0-0.2); Platelet Count 236 X10*3/uL (160-400); Red Blood Count 4.27 X10*6/uL (4.20-5.50); White Blood Count 8.7 X10*3/uL (4.8-10.8)
[2024-10-07 18:04] LABS: Alanine Aminotransferase 32 U/L (0-31); Albumin Level 4.3 g/dL (3.5-5.0); Alkaline Phosphatase 95 U/L (39-117); Anion Gap 12 (12-20); Aspartate Amino Transferase 21 U/L (5-31); Blood Urea Nitrogen 21 mg/dL (9-16); Calcium 8.6 mg/dL (8.4-10.2); Carbon Dioxide 25 mmol/L (22-29); Chloride 109 mmol/L (96-108); Estimated Glomerular Filt Rate > 60; Potassium 4.3 mmol/L (3.3-5.1); Sodium 142 mmol/L (135-145); Total Protein 7.1 g/dL (6.5-8.0)
[2024-10-07 18:22] LABS: Folate 10.6 ng/mL (> or = 4.0); Vitamin B12 300 pg/mL (200-900)
== END 2024-10-07 12:31 | disposition home or self-care (01) ==
LOC: HO.HKASLDS 12:30
PROVIDERS: PCP Internal Medicine; Visit Provider Psychiatry & Neurology Neurology
DX: G47.33 Obstructive sleep apnea (adult) (pediatric) (principal); R41.89 Other symptoms and signs involving cognitive functions and awareness; R41.3 Other amnesia; Z13.29 Encounter for screening for other suspected endocrine disorder
CPT/HCPCS: 36415; 80053; 82607; 82746; 84443; 85025; 85652; 86592; 99212

== ENCOUNTER 2024-12-20 11:17 | Outpatient (AMB) | payer MEDICARE, MEDICAID, SELFPAY ==
[2024-12-20 11:35] VITALS: BP 110/70; PULSE 87; RESP 18; TEMP 36.1; O2SAT 95; BMI 30.8
--- NOTE | 2024-12-20 11:35 | A.OFFPC_ITS ---
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9) Depression Anxiety Alcohol abuse Obstructive sleep apnea Allergic rhinitis Migraine COPD (chronic obstructive pulmonary disease) Benign essential hypertension Pure hypercholesterolemia Diabetes mellitus Poor historian Chronic bronchitis Surgical History History of colonoscopy History of removal of cyst Family History Father CVD (cardiovascular disease) Mother Emphysema lung Cervical cancer Diabetes Brother Diabetes Myocardial infarction Sister Diabetes Stroke Other Mental health disorder Social History Household Members: None Household Members Other:: [employer] Housing: Apartment Alcohol intake: current Alcohol intake frequency: holidays/special occasions only Patient Tobacco Use Status: Never used Tobacco e-Cigarette/Vaping Use: Never Used Second Hand Smoke Exposure: Yes service: No Current occupational status: disabled Gender identity: Female Cognitive needs: No Hearing needs: Yes Vision needs: Yes Female Reproductive History Menstrual Age of Menarche: 13 Questionnaire Thrive Questionnaire Date Thrive assessed: 08/19/24 DOLORES-7 AMB Questionnaire DOLORES-7 Date DOLORES - 7 assessed: 08/19/24 Source: Developed by Drs. Wade Cardenas, Tomasa Stafford, Javier Chan and colleagues, with an educational keiko from [employer]. Physical exam (Primary Care) Tobacco/Smoking Status: Tobacco use Status Tobacco use date assessed 08/19/24 10/07/24 14:04 Patient Tobacco Use Status Never used Tobacco 10/07/24 14:04 e-Cigarette/Vaping Use Never Used 10/07/24 14:04 Thrive Assessment: Date of Thrive Assessment Date Thrive assessed 08/19/24 10/07/24 14:04 Coding
--- NOTE | 2024-12-20 11:40 | AM.OFFVISMDC ---
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 Required: No Accompanied by: Self / Same As Patient Allergies codeine (CODEINE) Adverse Reaction (Intermediate, Verified 12/20/24 11:56) Vomiting Medication List - Last Reconciled 12/20/24 by ASHLEY Rivera albuterol sulfate 90 mcg/actuation (Ventolin HFA) 2 puffs inhalation Q6H PRN 30 days amitriptyline 25 mg PO BEDTIME 90 days atorvastatin 80 mg PO DAILY blood sugar diagnostic As directed blood sugar diagnostic (FreeStyle Lite Strips) As directed once daily blood-glucose meter (FreeStyle Lite Meter kit) As directed dextromethorphan polistirex ER (Delsym 12 hour) 10 mL PO Q12H PRN [DIABETIC SHOES As directed] doxycycline hyclate 100 mg PO BID dulaglutide (Trulicity) 0.75 mg (0.5 mL) subcut QWEEK ergocalciferol (vitamin D2) 1,250 mcg PO QWEEK 3 months escitalopram oxalate 20 mg PO DAILY 90 days fluticasone propionate 50 mcg/actuation 1 spray intranasal BID Forfivo XL (bupropion HCl) 450 mg PO QAM 90 days NS lancets (Comfort EZ Lancets) As directed once per day loratadine (Allergy Relief (loratadine)) 10 mg PO DAILY metformin 500 mg PO BID montelukast 10 mg PO BEDTIME 90 days omeprazole 20 mg PO DAILY 90 days solifenacin 10 mg PO DAILY 30 days Trelegy Ellipta 200-62.5-25 mcg (asvnxqtbfcq-jqwiilvmn-lvooldnc) 1 inh inhalation DAILY 30 days NS HPI AWV HPI Details [place] of care was reviewed and updated today The patient reports that she does not has a healthcare proxy at this time. The MOLST form was given to the patient to fill out Dentist:reports that she has not been to the dentist in a while Eye: Reports that she has to get a new eye doctor [place]: Right: Left: Corrected vision: yes, glasses STI screening: Colonoscopy: 2023-the patient is getting this done every 3 years Pap Smer: 08/2023 mammogram: 08/2024 PHQ-9: Flu: COVID: Tdap:2025, due next year Diet:regular Exercise: no HPI Comments History of Present Illness Details reviewed past medical history- yes reviewed surgical / hospitalization history- yes reviewed current medications- yes reviewed family history- yes home safety throw rugs? yes grab bars? no raised toilet seat? no working smoke detectors? yes activities of daily living difficulty bathing or showering? no difficulty dressing? no difficulty using the toilet? no difficulty getting in and out of bed? mp difficulty walking?no-just needs rest periods receives help from other person's with any of the above tasks? instrumental activities of daily living uses telephone - yes gets to place out of walking distance- yes go shopping for groceries- yes repairs own meals- yes does own minor home maintenance- yes does own laundry- yes does own housework-yes manages own money-yes with help of sister currently takes medication- yes end of life planning discussed advanced directives- yes advanced directives on file? discussed wishes expressed in advanced directives. fall risk have you had any falls with injuries in the past year? have you had 2 or more falls in the past year? fall risk assessment: [facility] Medical History Cognitive change Overweight (BMI 25.0-29.9) Urinary incontinence Vitamin D deficiency GERD without esophagitis Blister (nonthermal), right foot, initial encounter HPV in female Urge and stress incontinence DM2 (diabetes mellitus, type 2) Hyperlipidemia LDL goal <100 Obesity (BMI 30-39.9) Depression Anxiety Alcohol abuse Obstructive sleep apnea Allergic rhinitis Migraine COPD (chronic obstructive pulmonary disease) Benign essential hypertension Pure hypercholesterolemia Diabetes mellitus Poor historian Chronic bronchitis Surgical History History of colonoscopy History of removal of cyst Family History Father CVD (cardiovascular disease) Mother Emphysema lung Cervical cancer Diabetes Brother Diabetes Myocardial infarction Sister Diabetes Stroke Other Mental health disorder Social History Household Members: None Household Members Other:: [employer] Housing: Apartment Alcohol intake: current Alcohol intake frequency: holidays/special occasions only Patient Tobacco Use Status: Never used Tobacco e-Cigarette/Vaping Use: Never Used Second Hand Smoke Exposure: Yes service: No Current occupational status: disabled Gender identity: Female Cognitive needs: No Hearing needs: Yes Vision needs: Yes Female Reproductive History Menstrual Age of Menarche: 13 Questionnaire Medicare Wellness Checkup What gender do you identify with?: female During the past 4 weeks, how much have you been bothered by emotional problems such as feeling anxious, depressed, irritable, sad or downhearted, and blue?: moderately During the past 4 weeks, has your physical & emotional health limited your social activities with family, friends, neighbors, or groups?: not at all During the past 4 weeks, how much bodily pain have you generally had?: mild pain During the past 4 weeks, was someone available to help you if you needed & wanted help?: no, not at all During the past 4 weeks, what was the hardest physical activity you could do for at least 2 minutes?: very light Can you get to places out of walking distance without help? (For eg., can you travel alone on buses, taxis or drive your car?): Yes Can you go shopping for groceries or clothes without someone's help?: No Can you prepare your own meals?: Yes Can you do your housework without help?: Yes Because of any health problems, do you need the help of another person with your personal care needs such as eating, bathing, dressing or getting around the house?: No Can you handle your own money without help?: Yes During the past 4 weeks, how would you rate your health in general?: very good During the past 4 weeks how have things been going for you?: very well; could hardly better Are you having difficulties driving your car?: not applicable, I don't use a car Do you always fasten your seat belt when you are in a car?: yes, usually During past 4 weeks, have you been bothered by the following: never: Falling or dizzy when standing up, Sexual problems?, Trouble eating well?, Teeth or denture problems?, Problems using the telephone? and Tiredness or fatigue? Have you fallen 2 or more times in the past year?: Yes Are you afraid of falling?: Yes Are you a smoker?: no During the past 4 weeks, how many drinks of wine, beer, or other alcoholic beverages did you have?: 2-5 drinks per week Do you exercise for about 20 minutes 3 or more times a week?: yes, some of the time Have you been given information to help with the following?: yes: Keeping track of your medications? and no: Hazards in your house that might hurt you? How often do you have trouble taking medicines the way you have been told to take them?: I always take medicine as prescribed How confident are you that you can control & manage most of your health problems?: not very confident What is your race?: White Mini Mental State Exam (MMSE) Orientation What is the (year) (season) (date) (day) (month)?: year, season, date, day and month Where are we (state) (county) (town or city) (hospital) (floor)?: state, town or city, hospital/clinic and floor Score Score: 9 Activity of Daily Living Bathing - sponge bath, tub bath or shower: receives no assistance (gets in/out by self, if usual bathing means Dressing - getting clothes from closets & drawers, including inner/outer garments & fasteners.: gets clothes & gets completely dressed without help Toileting - going to the 'toilet room' for urine/bowel elimination & cleaning self/arranging clothes: goes to toilet room, cleans self, arranges clothes without help Transfer: moves in & out of bed and chair without help (may use support object) Continence: controls urination/bowel movements completely by self Feeding: feeds self without help Total Score: 0 Information obtained from: patient Using telephone: independent Traveling: independent Shopping: independent Preparing meals: independent Housework: independent Taking medicine: independent Managing money: independent PHQ-9 Over the last 2 weeks, how often have you been bothered by any of the following problems? 1. Little interest or pleasure in doing things: not at all 2. Feeling down, depressed, or hopeless: not at all 3. Trouble falling or staying asleep, or sleeping too much: not at all 4. Feeling tired or having little energy: not at all 5. Poor appetite or overeating: not at all 6. Feeling bad about yourself - or that you are a failure or have let yourself or your family down: not at all 7. Trouble concentrating on things, such as reading the newspaper or watching television: not at all 8. Moving or speaking so slowly that other people could have noticed. Or the opposite - being so fidgety or restless that you have been moving around a lot more than usual: not at all 9. Thoughts that you would be better off or of hurting yourself in some way: not at all Total score: 0 Depression Screening Interpretation: Negative Depression Screening Done: Yes Source: Developed by Drs. Wade Cardenas, Tomasa Stafford, Javier Chan and colleagues, with an educational keiko from [employer]. Review of Systems Const Denies headache(s) Eyes Denies loss of vision ENT Denies vertigo, Denies dizziness, Denies headache(s), Reports nasal congestion, Reports post nasal drip and Denies sore throat Card Denies chest pain, Denies leg edema and Denies lightheadedness Resp Reports cough (for 3 weeks), Denies hemoptysis and Denies wheezing GI Denies abdominal pain, Denies melena, Denies constipation, Denies diarrhea and Denies vomiting Denies urinary frequency, Denies dysuria and Denies urinary urgency Musc Denies arthralgias, Denies joint swelling, Denies numbness and Denies tingling Neuro Denies behavioral changes, Denies vertigo, Denies dizziness, Denies headache(s), Denies loss of vision, Denies memory loss, Denies numbness and Denies tingling Psych Denies anxiety, Denies behavioral changes, Denies depression, Denies memory loss and Denies panic attacks Juancarlos/Lymph Denies easy bleeding and Denies easy bruising Aller/Immun Denies wheezing Physical Exam Exam Exam: IPPE/AWV: Balance Romberg Yes . Tandem walk Yes. Walk and Turn Yes . Rise from sit to stand Yes . Vision Corrective lens yes, glasses Vision screen pass Hearing Whisper test pass . Urinary incont. no. EKG Not clinically necessary. Vital Signs: Last Vital Signs Temp 96.9 F 12/20/24 11:35 Pulse 87 12/20/24 11:35 Resp 18 12/20/24 11:35 BP 110/70 12/20/24 11:35 Pulse Ox 95 12/20/24 11:35 Oxygen Delivery Method Room Air 12/20/24 11:35 BMI result Body Mass Index 30.8 Assessment & Plan Assessment & Plan (1) Medicare annual wellness visit, subsequent: Code(s): Z00.00 - Encounter for general adult medical examination without abnormal findings Plan: Preventative guidelines reviewed with patient. Colonoscopy: 2023-the patient is getting this done every 3 years Pap Smer: 08/2023 mammogram: 08/2024 Preordered labs were not completed as yet. A1c was done in office. (2) COPD exacerbation: Code(s): J44.1 - Chronic obstructive pulmonary disease with (acute) exacerbation Plan: Positive effects except her lingering cough, denies shortness of breath. Z-Yonathan ordered Continue Trelegy Ellipta 200-62.5-25 mcg, albuterol sulfate 90 mcg/actuation (ventolin HFA) 2 Puffs Q6H PRN Encouraged the patient and staff member to make an appt with Pulmonology (3) Cough: Code(s): R05 - Cough Qualifiers: Cough type: chronic Qualified Code(s): R05.3 - Chronic cough Plan: The has been taking cough syrup otc. suspect the patient is cough is related to pnd Continue Flonase and antihistamine as needed. Z-Yonathan ordered Encourage fluids (4) Post-nasal drip: Code(s): R09.82 - Postnasal drip Plan: Continue loratadine 10 mg daily, montelukast, and Flonase nose spray b.i.d. encouraged increasing fluids intake (5) Diabetes mellitus: Code(s): E11.9 - Type 2 diabetes mellitus without complications Qualifiers: Diabetes mellitus type: type 2 Diabetes mellitus residential insulin use: without termination clerk use Diabetes mellitus complication status: without complication Qualified Code(s): E11.9 - Type 2 diabetes mellitus without complications Plan: A1c 7.2% in office, was 6.7% previously-goal is less than 7 % reinforced a diet low in sugar/carbohydrates Continue Trulicity 0.75 mg s.c qwk, metformin 500mg BID Monitor blood sugar regularly Plan The patient is to follow up if symptoms are not relieving or worsening Orders: Orders AMB Hemoglobin A1c 12/20/24 E11.65 - Type 2 diabetes mellitus with hyperglycemia, E11.9 - Type 2 diabetes mellitus without complications Medications: New azithromycin For 250 mg dose pack: take 500 mg today (day 1), then 250 mg for 4 days (days 2-5) PO 6 tabs 0RF Quality Reporting (2019) Depression/Bipolar (159/160/161/177) PHQ-9: Total score: 0 Coding Level of Care Code Medicare Subsequent (G0439) Diagnoses Medicare annual wellness visit, subsequent Z00.00 COPD exacerbation J44.1 Chronic cough R05.3 Cough type: chronic Post-nasal drip R09.82 Type 2 diabetes mellitus without complication, without long-term current use of insulin E11.9 Diabetes mellitus type: type 2 Diabetes mellitus termination clerk insulin use: without termination clerk use Diabetes mellitus complication status: without complication Time Spent (min) 39
--- OUTSIDE RECORDS SUMMARY | 2024-12-20 13:51 | XMS_ITS | Clinical Summary ---
Author Organization [employer] Address [address] [place] [address] Care Team Providers Care Lap Runner Name Role Phone Unavailable Primary Care Provider [...] DAY FOR NASAL SORE 01/30/20 23 Active albuterol 108 (90 Base) MCG/ACT inhaler INHALE 2 PUFFS EVERY 6 HOURS NEEDED FOR SHORTNESS OF BREATH OR WHEEZING FOR 30 DAYS 05/14/19 25 Active azithromycin (Zithromax) 250 MG tablet 05/14/19 25 Active ergocalciferol (Vitamin D2) 1.25 MG (61635 UT) capsule TAKE 1 CAPSULE BY MOUTH EVERY WEEK FOR 3 MONTHS 04/07/19 25 Active fluticasone (Flonase) 50 MCG/ACT nasal spray 05/18/19 25 Active loratadine (Claritin) 10 MG tablet Take 1 tablet by mouth Once per day. 04/08/19 25 Active Social History Tobacco Use Types Packs/Day Years [...] Sign Reading Time Taken Comments Blood Pressure 124/64 05/21/2024 11:08 AM EST Pulse 80 05/21/2024 11:08 AM EST Temperature - - Respiratory Rate - - [...] Panel 1967 SDOH Screening 1967 Sigmoidoscopy 1967 Disability Screening 1967 Alcohol/Substance Use Screening 1979 Hepatitis C Screening 10/25/1985 Hepatitis B Vaccines (1 of 3 - 19+ 3-dose series) 10/25/1986 Pap Smear 10/25/1988 Cervical Cancer Screening 10/25/1997 HPV/Cotest 10/25/1997 Mammogram 2007 Zoster Vaccines (1 of 2) 10/25/2017 Pneumococcal Vaccine: 50+ Years (3 of 3 - PCV20 or PCV21) 04/26/2024 04/26/2019, 04/26/2019 Influenza Vaccine (#1) 2024 , 12/18/2022, 01/05/2022, Additional history exists Dental Oral Exam 11/22/2024 05/21/2024, , 01/23/2023, Additional history exists Dental Prophylaxis 11/22/2024 05/21/2024, 0 08/07/2023, 01/23/2023, Additional history exists Tobacco Screening 05/21/2025 05/21/2024 Dental X-Ray: Bitewings 05/22/2025 05/22/19 25, 01/23/2023, 09/05/2017, Additional history exists DTaP/Tdap/Td Vaccines (2 - Td or Tdap) 03/15/2026 03/15/2016 Dental X-Ray: Full Mouth 05/23/2027 05/21/2024, 10/15 RSV Patients and Patients Aged 60 years or older (1 - 1-dose 75+ series) 10/25/2042 COVID-19 Vaccine Completed 12/20/2023, , 06/30/2020, Additional history exists HIB Vaccines Aged Out [...] patient's age to complete this topic Meningococcal B Vaccine Aged Out No l onger eligible based on patient's age to complete [...] Procedure Name Priority Date/Time Associated Diagnosis Comments Full PROPHYLAXIS - ADULT Routine 025 11:00 AM EST PANORAMIC RADIOGRAPHIC IMAGE Routine 05/21/2024 11:00 AM EST BITEWINGS - 4 RADIOGRAPHIC IMAGES Routine 05/21/2024 11:00 AM EST PERIODIC ORAL EVALUATION - ESTABLISHED PATIENT Routine 05/21/2024 11:00 AM EST from Last 3 Months or Most Recently Relevant to Health Maintenance Insurance [place] AD[place]
--- OUTSIDE RECORDS SUMMARY | 2024-12-20 13:51 | XMS_ITS | Encounter Summary ---
Author Organization [employer] Address [address] [place] [address] Care Team Providers Care Lab Associate Name Role Phone Unavailable Primary Care Provider Unavailabl e Encounter Details Date Type Department Care Team (Latest Contact Info) Description 05/06/2019 Abstract [facility] CONVERSIONS Dental, Provider, DDS Social History [...]
--- OUTSIDE RECORDS SUMMARY | 2024-12-20 13:51 | XMS_ITS | Encounter Summary ---
Author Organization [employer] Address [address] [place] [address] Care Team Providers Care Belt Maker Name Role Phone Unavailable Primary Care Provider Unavailabl e Reason for Visit * Reason Onset Date Comments rs no show appt 03/08/2024 Encounter Details Date Type Department Care Team (Late st Contact Info) Description 03/08/2024 Telephone [facility] [address] [place] [address] Jaziel Dominguez rs no show appt Social [...] - 03/08/2024 11:48 AM EST Patient called statig that she as unable to make it to [facility] [facility] due to being sick and being [...]
== END 2024-12-20 12:34 | disposition home or self-care (01) ==
LOC: HO.HMCH 11:17
PROVIDERS: PCP Internal Medicine
DX: Z00.00 Encounter for general adult medical examination without abnormal findings (principal); E11.9 Type 2 diabetes mellitus without complications; J44.1 Chronic obstructive pulmonary disease with (acute) exacerbation; R05.3 Chronic cough; R09.82 Postnasal drip

== ENCOUNTER 2025-02-25 10:10 | Outpatient (AMB) | payer MEDICARE, MEDICAID, SELFPAY ==
[2025-02-25 10:20] VITALS: BP 96/62; PULSE 96; RESP 18; O2SAT 99; BMI 29.7
--- NOTE | 2025-02-25 10:20 | A.OFFPC_ITS ---
Vital Signs 02/25/25 10:20 Height 4 ft 11 in Weight 147 lb 2 oz BMI 29.7 BP 96/62 Blood Pressure Location Lt brachial Position Sitting Respiration 18 Pulse 96 Pulse Source Pulse Oximeter Temp Source Temporal Artery Scan Pulse Oximetry (%) 99 Oxygen Delivery Method Room Air Intake Visit Reasons: [facility] 02/22 Prick Stitcher Required: No Accompanied by: Self / Same As Patient Allergies codeine (CODEINE) Adverse Reaction (Intermediate, Verified 02/25/25 10:56) Vomiting Medication List - Last Reconciled 02/28/25 by ASHLEY Rivera albuterol sulfate 90 mcg/actuation (Ventolin HFA) 2 puffs inhalation Q6H PRN 30 days amitriptyline 25 mg PO BEDTIME 90 days atorvastatin 80 mg PO DAILY azithromycin For 250 mg dose pack: take 500 mg today (day 1), then 250 mg for 4 days (days 2-5) PO blood sugar diagnostic As directed blood sugar diagnostic (FreeStyle Lite Strips) As directed once daily blood-glucose meter (FreeStyle Lite Meter kit) As directed carbamide peroxide 6.5% (Debrox) 5 drps otic (ears) Q12H 4 days dextromethorphan polistirex ER (Delsym 12 hour) 10 mL PO Q12H PRN [DIABETIC SHOES As directed] doxycycline hyclate 100 mg PO BID dulaglutide (Trulicity) 0.75 mg (0.5 mL) subcut QWEEK ergocalciferol (vitamin D2) 1,250 mcg PO QWEEK 3 months escitalopram oxalate 20 mg PO DAILY 90 days fluticasone propionate 50 mcg/actuation 1 spray intranasal BID Forfivo XL (bupropion HCl) 450 mg PO QAM 90 days NS lancets (FreeStyle Lancets) As directed once per day loratadine (Allergy Relief (loratadine)) 10 mg PO DAILY metformin 500 mg PO BID montelukast 10 mg PO BEDTIME 90 days omeprazole 20 mg PO DAILY 90 days solifenacin 10 mg PO DAILY 30 days Trelegy Ellipta 200-62.5-25 mcg (sifxhwmommj-adasqkldw-ybsqosom) 1 inh inhalation DAILY 30 days NS Tobacco use date assessed: 02/25/25 Dental Screening Dental Screen Date: 02/25/25 Did you have a dental visit in the last 12 months?: No Did you have a dental problem in the last 6 months where you did not have access to dental care?: No Was dental information given to patient?: No HPI HPI Comments History of Present Illness Details The patient is a 59 year old female presenting for a follow-up visit after a recent hospitalization. She reports a history of coughing and choking, which prompted the hospital visit, although she did not stay overnight. The cough occurs while eating, raising concerns for aspiration. The patient is accompanied with half-way staff. The patient has a history of Chronic Obstructive Pulmonary Disease (COPD) and sleep apnea, for which she had a sleep study a few years ago but does not use a CPAP machine. She has not had a swallow study in the past. Recent lab work from August showed an A1c of 6.4%, and it is now 6.9%. Her blood pressure was low during her recent hospital visit. She takes atorvastatin for cholesterol. Her caregiver notes that the patient has experienced falls. Concerns that the patient is not drinking enough fluids. The patient usually gets her ears cleaned intermittently by ENT, who recently retired that she is concerned about where she is going to get her ears cleaned. Health Maintenance - An A1c was done in August and was 6.4%, but a more recent value is 6.9%. - A follow-up appointment is scheduled March 29 at 11:30. - Blood work is pending. Social History - The patient is described as very indep endent and uses the bus for transportation. - She receives about eight hours of supp ort per week through [facility]. Results - Labs: A1c was 6.4% in August; recent A1c is 6.9%. - Imaging: Chest x-ray was unremarkable. [facility] Medical History Cognitive change Overweight (BMI 25.0-29.9) Urinary incontinence Vitamin D deficiency GERD without esophagitis Blister (nonthermal), right foot, initial encounter HPV in female Urge and stress incontinence DM2 (diabetes mellitus, type 2) Hyperlipidemia LDL goal <100 Obesity (BMI 30-39.9) Depression Anxiety Alcohol abuse Obstructive sleep apnea Allergic rhinitis Migraine COPD (chronic obstructive pulmonary disease) Benign essential hypertension Pure hypercholesterolemia Diabetes mellitus Poor historian Chronic bronchitis Surgical History History of colonoscopy History of removal of cyst Family History Father CVD (cardiovascular disease) Mother Emphysema lung Cervical cancer Diabetes Brother Diabetes Myocardial infarction Sister Diabetes Stroke Other Mental health disorder Social History Household Members: None Household Members Other:: [employer] Housing: Apartment Alcohol intake: current Alcohol intake frequency: holidays/special occasions only Patient Tobacco Use Status: Never used Tobacco e-Cigarette/Vaping Use: Never Used Second Hand Smoke Exposure: Yes service: No Current occupational status: disabled Gender identity: Female Cognitive needs: No Hearing needs: Yes Vision needs: Yes Female Reproductive History Menstrual Age of Menarche: 13 Questionnaire PHQ-9 Over the last 2 weeks, how often have you been bothered by any of the following problems? 1. Little interest or pleasure in doing things: not at all 2. Feeling down, depressed, or hopeless: not at all 3. Trouble falling or staying asleep, or sleeping too much: several days 4. Feeling tired or having little energy: several days 5. Poor appetite or overeating: not at all 6. Feeling bad about yourself - or that you are a failure or have let yourself or your family down: not at all 7. Trouble concentrating on things, such as reading the newspaper or watching television: not at all 8. Moving or speaking so slowly that other people could have noticed. Or the opposite - being so fidgety or restless that you have been moving around a lot more than usual: not at all 9. Thoughts that you would be better off or of hurting yourself in some way: not at all Total score: 2 Source: Developed by Drs. Wade Cardenas, Tomasa Stafford, Javier Chan and colleagues, with an educational keiko from [employer]. Thrive Questionnaire Date Thrive assessed: 02/25/25 I am a: Parent/Caregiver What is your living situation today?: I have a steady place to live Within the past 12 months, did the food you bought not last and you didn't have the money to get more?: Often true Within the past 12 months, did you worry whether your food would run out before you got money to buy more?: Often true Do you have trouble paying for medicines?: No Do you have trouble getting transportation to medical appointments?: No Do you have trouble paying your heating and electricity bill?: No Do you have trouble taking care of your child, family member or friend?: No Do you have trouble with day-to-day activities such as bathing, preparing meals, shopping, managing finances, etc.?: No Are you currently unemployed and looking for a job?: Yes Are you interested in more education?: I choose not to answer this question Please select the resources that you would like help with: None Currently or been in a relationship where the following occur: I choose not to answer THRIVE Score: 2 AUDIT C Alcohol Use Questionnaire (AUDIT-C) 1. How often do you have a drink containing alcohol?: Never Total Score: 0 DOLORES-7 AMB Questionnaire DOLROES-7 Date DOLORES - 7 assessed: 02/25/25 Feeling nervous, anxious, or on edge: 0 = Not at all Not being able to stop or control worryin = Not at all Worrying too much about different things: 0 = Not at all Trouble relaxin = Not at all Being so restless that it is hard to sit still: 0 = Not at all Becoming easily annoyed or irritable: 0 = Not at all Feeling afraid as if something awful might happen: 0 = Not at all Total DOLORES-7 score (0-4 normal; 5-9 mild; 10-14 moderate; 15-21 severe): 0 Source: Developed by Drs. Wade Cardenas, Tomasa Stafford, Javier Chan and colleagues, with an educational keiko from [employer]. Review of Systems Narrative Review of Systems - Respiratory: Reports coughing and choking, particularly when eating. - Constitutional: Denies wanting to go to the hospital. - HEENT: Reports a runny nose. Const Denies headache(s) Eyes Denies loss of vision ENT Denies vertigo, Denies dizziness, Denies headache(s) and Denies sore throat Card Denies chest pain, Denies leg edema and Denies lightheadedness Resp Reports cough (when eating), Denies hemoptysis and Denies wheezing GI Denies abdominal pain, Denies melena, Denies constipation, Denies diarrhea and Denies vomiting Denies urinary frequency, Denies dysuria and Denies urinary urgency Musc Denies arthralgias, Denies joint swelling, Denies numbness and Denies tingling Neuro Denies behavioral changes, Denies vertigo, Denies dizziness, Denies headache(s), Denies loss of vision, Denies memory loss, Denies numbness and Denies tingling Psych Denies anxiety, Denies behavioral changes, Denies depression, Denies memory loss and Denies panic attacks Juancarlos/Lymph Denies easy bleeding and Denies easy bruising Aller/Immun Denies wheezing Physical exam (Primary Care) Vital Signs: Last Vital Signs Pulse 96 02/25/25 10:20 Resp 18 02/25/25 10:20 BP 96/62 02/25/25 10:20 Pulse Ox 99 02/25/25 10:20 Oxygen Delivery Method Room Air 02/25/25 10:20 BMI result Body Mass Index 29.7 Tobacco/Smoking Status: Tobacco use Status Tobacco use date assessed 02/25/25 02/25/25 10:21 Patient Tobacco Use Status Never used Tobacco 02/25/25 10:21 e-Cigarette/Vaping Use Never Used 02/25/25 10:21 PHQ-9: PHQ-9 Score PHQ-9: Total score 2 02/25/25 10:58 Thrive Assessment: Date of Thrive Assessment Date Thrive assessed 02/25/25 02/25/25 10:21 Currently or been in a relationship where the following occur: I choose not to answer Narrative Physical Exam - Vitals: Blood pressure 96/62 mmHg. - HEENT: Lips appear dry. - Respiratory: Lungs are clear to auscultation. Const General: cooperative, healthy appearing, comfortable and no acute distress Orientation/consciousness: patient oriented x3 HENMT Head: Yes normocephalic Ears: hearing grossly normal bilaterally General nose exam: Normal external nose present Mouth: lip abnormal (dry) and Abnormal oral and palatal mucosa present (dry) Eyes General: appearance normal, both eyes and all related structures Conjunctivae: conjunctivae normal Neck Neck: Yes full ROM and Yes no lymphadenopathy Resp Effort & Inspection: normal respiratory effort Auscultation: clear to auscultation bilaterally, no crackles, no rales, no rhonchi and no wheezes Cardio Rate: regular rate Rhythm: regular rhythm Heart sounds: S1 normal heart sound present, S2 normal heart sound present, no murmurs and no rubs GI Palpation (GI): Soft to palpation and nontender Auscultation: normal bowel sounds General: Yes no CVA tenderness Back/Spine/Pelvis Back: no CVA tenderness Skin General skin exam: no rashes or lesions noted Neuro General: patient oriented x3 Gait exam (Neuro): Normal gait present Extrem General: Yes normal to inspection, Yes full ROM and No edema Psych Affect: normal affect Attitude: cooperative Insight: Good insight present (Psych) Judgement: Good judgement present (Psych) Coding Level of Care Code Est Pt Level 4 (79617) Diagnoses Dysphagia, unspecified type R13.10 Dysphagia type: unspecified Hypotension due to hypovolemia E86.1 Hypotension type: hypotension due to hypovolemia Type 2 diabetes mellitus with other specified complication, without long-term current use of insulin E11.69 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: without senior care use Diabetes mellitus complication status: with other specified complication Chronic obstructive pulmonary disease, unspecified COPD type J44.9 COPD type: unspecified COPD Time Spent (min) 36 Assessment & Plan Assessment & Plan (1) Dysphagia: Code(s): R13.10 - Dysphagia, unspecified Category: Medical Qualifiers: Dysphagia type: unspecified Qualified Code(s): R13.10 - Dysphagia, unspecified (2) Hypotension: Code(s): I95.9 - Hypotension, unspecified Category: Medical Qualifiers: Hypotension type: hypotension due to hypovolemia Qualified Code(s): E86.1 - Hypovolemia (3) DM2 (diabetes mellitus, type 2): Code(s): E11.9 - Type 2 diabetes mellitus without complications Category: Medical Qualifiers: Diabetes mellitus senior care insulin use: without senior care use Diabetes mellitus complication status: with other specified complication Qualified Code(s): E11.69 - Type 2 diabetes mellitus with other specified complication (4) COPD (chronic obstructive pulmonary disease): Code(s): J44.9 - Chronic obstructive pulmonary disease, unspecified Category: Medical Qualifiers: COPD type: unspecified COPD Qualified Code(s): J44.9 - Chronic obstructive pulmonary disease, unspecified Plan Plan Patient was informed and verbally consented to the use of an ambient scribe for clinic note documentation during this visit. 1. Cough And Dysphagia The patient's cough, particularly when eating, raises concern for aspiration, especially given her history of COPD. A barium swallow study will be ordered to evaluate her swallowing function. 2. Diabetes The patient's A1c has increased from 6.4% in August to 6.9%, indicating worsening glycemic control. A prescription for lancets and test strips will be sent to the pharmacy for blood glucose monitoring. Lab work will be done to further assess her status. 3. Hypotension And Dehydration The patient presented with a blood pressure of 96/62 mmHg and has dry lips, indicating possible dehydration as she is not on any antihypertensive medications. She has been advised to increase her fluid intake, specifically water. 4. Sleep Apnea The patient has a known history of sleep apnea and does not use her CPAP machine. A neighbor commented that her lips appeared blue, which could be related to hypoxia. The importance of using the machine to improve breathing and oxygenation was discussed. 5. Cerumen Impaction The patient has a history of requiring ear wax removal. A referral will be placed for ear irrigation, which can be done in the office. I will prescribe [id number]-tbl-[id number] ear drops to soften the wax, to be used for four days prior to the removal appointment, with a regimen of five drops in each ear twice a day. Discussion Notes I conducted a follow-up visit with the patient after her recent hospitalization for coughing. I explained my concern that her cough while eating may indicate aspiration and recommended a swallow study to evaluate this. We discussed her recent low blood pressure reading and signs of dehydration, and I advised her to increase her water intake. I reviewed her history of sleep apnea and the potential risks of not using her CPAP machine, including decreased oxygen levels, and encouraged her to use it. We also addressed her need for cerumen removal and I provided instructions on using [id number]-seb-myuvpgo drops to soften the wax before her next appointment. I ordered pending lab work and arranged a follow-up appointment for March 29. Patient Instructions - Please get your blood work done before your next appointment. - Make sure you drink more water to stay hydrated. - You will need a special test called a barium swallow to check why you are coughing when you eat. - For your ear wax, you can get mxmh-dsv-ytrutcb drops to soften it. - Use five drops in each ear, two times a day, for four days before your ear cleaning appointment. - We will send a prescription for lancets for you to check your blood sugar. - Your follow-up appointment is on March 29 at 11:30 AM. Orders: Orders AMB Hemoglobin A1c 02/25/25 E11.65 - Type 2 diabetes mellitus with hy perglycemia, E11.9 - Type 2 diabetes mellitus without complications [place] barium swallow 02/25/25 R13.10 - Dysphagia, unspecified Medications: New carbamide peroxide 6.5% (Debrox) 5 drps otic (ears) Q12H 15 mL 0RF 4 days Refilled blood sugar diagnostic (FreeStyle Lite Strips) As directed once daily 100 ea 1RF E11.9 - Type 2 diabetes mellitus without complications lancets (Comfort EZ Lancets) As directed once per day 100 ea 0RF E11.9 - Type 2 diabetes mellitus without complications
== END 2025-02-25 11:22 | disposition home or self-care (01) ==
LOC: HO.HMCH 10:11
PROVIDERS: PCP Internal Medicine
DX: R13.10 Dysphagia, unspecified (principal); E86.1 Hypovolemia; E11.69 Type 2 diabetes mellitus with other specified complication; J44.9 Chronic obstructive pulmonary disease, unspecified

== ENCOUNTER 2025-02-25 10:10 | Outpatient (REF) | payer MEDICARE, MEDICAID, SELFPAY ==
[2025-02-25 11:52] LABS: MANUAL DIFF FLAG NO
[2025-02-25 14:04] LABS: Hematocrit 43.6 % (37.0-47.0); Hemoglobin 13.8 g/dl (12.0-16.0); Imm Gran Abs Auto 0.08 X10*3/uL (0.00-0.03); Imm Gran Pct Auto 0.7 % (0.0-0.4); Lymphocytes Absolute Auto 2.6 X10*3/uL (1.2-4.9); Mean Corpuscular HGB Conc 31.7 g/dl (31.0-35.0); Mean Corpuscular Hemoglobin 29.5 pg (27.0-33.0); Mean Corpuscular Volume 93.2 fL (80.0-98.0); NRBC Abs Auto 0.000 X10*3/uL (0.0-0.012); NRBC Pct Auto 0.0 /100WBC (0.0-0.2); Platelet Count 264 X10*3/uL (160-400); Red Blood Count 4.68 X10*6/uL (4.20-5.50); White Blood Count 11.6 X10*3/uL (4.8-10.8)
[2025-02-25 14:48] LABS: Alanine Aminotransferase 30 U/L (0-31); Albumin Level 4.6 g/dL (3.5-5.0); Alkaline Phosphatase 107 U/L (39-117); Anion Gap 13 (12-20); Aspartate Amino Transferase 27 U/L (5-31); Blood Urea Nitrogen 23 mg/dL (9-16); Calcium 9.8 mg/dL (8.4-10.2); Carbon Dioxide 28 mmol/L (22-29); Chloride 102 mmol/L (96-108); Cholesterol 173 mg/dL (<200); Estimated Glomerular Filt Rate 59; HDL Cholesterol 46 mg/dL (>40); Potassium 4.9 mmol/L (3.3-5.1); Sodium 138 mmol/L (135-145); Total Protein 7.4 g/dL (6.5-8.0); Triglycerides 235 mg/dL (<150)
[2025-02-25 15:20] LABS: Folate 6.6 ng/mL (> or = 4.0); Vitamin B12 322 pg/mL (200-900)
== END 2025-02-25 10:11 | disposition home or self-care (01) ==
LOC: HO.LAB 10:10
PROVIDERS: PCP Internal Medicine
DX: Z09 Encounter for follow-up examination after completed treatment for conditions other than malignant neoplasm (principal); D64.9 Anemia, unspecified; E53.8 Deficiency of other specified B group vitamins; E55.9 Vitamin D deficiency, unspecified; E78.00 Pure hypercholesterolemia, unspecified; G47.33 Obstructive sleep apnea (adult) (pediatric); J44.9 Chronic obstructive pulmonary disease, unspecified; R13.10 Dysphagia, unspecified; E86.1 Hypovolemia; E11.69 Type 2 diabetes mellitus with other specified complication; I10 Essential (primary) hypertension; H61.23 Impacted cerumen, bilateral; Z13.31 Encounter for screening for depression; Z13.39 Encounter for screening examination for other mental health and behavioral disorders
CPT/HCPCS: 36415; 80053; 80061; 82306; 82607; 82746; 83036; 84443; 85025; 96127; 99212